=== PATIENT | male | born 1960 | race Caucasian/White ===

== ENCOUNTER 2016-08-18 05:52 | Inpatient (IN) | payer OTHER ==
[~2016-08-18] VITALS: Ht 167.6 cm; Wt 60.7 kg
[2016-08-18] VITALS (16 sets, daily range): BP systolic 88–104; BP diastolic 60–76; PULSE 58–104; RESP 24; TEMP 96.8–99; O2SAT 1–100
[2016-08-18] MEDS ORDERED: PROPOFOL 1000 MG/100 ML INJ 100 ML ONE ×2 (05:57→05:58)
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
[2016-08-18 06:14] LABS: I-STAT POTASSIUM 4.4 MMOL/L (3.5-4.9)
[2016-08-18 06:15] LABS: AUTOMATED NEUTROPHIL # 6.8 TH/MM3 (1.8-7.7); BASOPHIL # 0.2 TH/MM3 (0-0.2); BASOPHIL % 1.2 % (0.0-2.0); EOSINOPHIL # 0.2 TH/MM3 (0-0.4); HEMATOCRIT 43.8 % (39.0-51.0); LYMPH % 34.2 % (9.0-44.0); LYMPHOCYTE # 4.1 TH/MM3 (1.0-4.8); MEAN CORPUSCULAR HEMOGLOBIN 28.1 PG (27.0-34.0); MEAN CORPUSCULAR HGB CONC 32.7 % (32.0-36.0); MONO % 6.4 % (0.0-8.0); NEUT % 56.2 % (16.0-70.0); PLATELET COUNT 279 TH/MM3 (150-450); RED BLOOD COUNT 5.09 MIL/MM3 (4.50-5.90); RED CELL DISTRIBUTION WIDTH 13.9 % (11.6-17.2); WHITE BLOOD COUNT 12.1 TH/MM3 (4.0-11.0)
[2016-08-18 06:16] LABS: HEMO FLAGS AUTO DIFF
[2016-08-18 06:25] LABS: APTT (PATIENT) 26.7 SEC (24.3-30.1); INTERNATIONAL NORMALIZED RATIO 0.9 RATIO
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
[2016-08-18] MEDS ORDERED: IOHEXOL 350 MG/ML 10 ML VIAL (for RAD DIAG) IV ONE (06:31)
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
[2016-08-18 06:54] LABS: SCAN/DIFF AUTO DIFF CONFIRMED
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
[2016-08-18] MEDS ORDERED: ENALAPRILAT 1.25 MG/ML VIAL IV PRN (07:00)
[2016-08-18] MEDS ORDERED: ONDANSETRON HCL 4 MG/2 ML VIAL IV PRN (07:00)
[2016-08-18] MEDS ORDERED: MISCELLANEOUS NURSING INFORMATION XX SCH (07:00)
[2016-08-18] MEDS ORDERED: CHLORHEXIDINE GLUCONATE 2 % 1 PACK (2 CLOTHS) TOP PRN (07:00)
[2016-08-18] MEDS ORDERED: ETOMIDATE 20 MG/10 ML VIAL ONE (07:29)
[2016-08-18] MEDS ORDERED: SUCCINYLCHOLINE CHLORIDE 200 MG/10 ML VIAL ONE (07:29)
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
[2016-08-18 07:57] LABS: BLOOD GAS CARBOXYHEMOGLOBIN 1.4 % (0-4); BLOOD GAS HCO3 22 mmol/L (22-26); BLOOD GAS O2 HGB SATURATION 97 % (90-100); BLOOD GAS OXYGEN CONTENT 20.2 Vol % (12.0-20.0); BLOOD GAS PCO2 41 mmHg (38-42); BLOOD GAS PO2 497 mmHg (61-120); BLOOD GAS TOTAL HGB 13.9 G/DL (12.0-16.0); TEMP CORR TO 98.6
[2016-08-18 07:58] LABS: CRITICAL VALUE NO; DRAW SITE LT RADIAL; FIO2 100 %; NUMBER OF ARTERIAL PUNCTURES 2; OXYGEN DEVICE VENTILATOR; STAT YES; ULNAR PULSE PRESENT; VENT SETTINGS PRVC16/500/1.0/PEEP5
[2016-08-18] MEDS: CHLORHEXIDINE 0.12% (ORAL KIT) 15 ML CUP MT SCH ×2 (08:00→19:51)
[2016-08-18] MEDS ORDERED: NOREPINEPHRINE-DEXTROSE DRIP 250 ML IV ONE (08:06)
[2016-08-18] MEDS ORDERED: POTASSIUM PHOSPHATE MONOBASIC 500 MG TAB PO PRN (08:30)
[2016-08-18] MEDS ORDERED: MAGNESIUM OXIDE 400 MG TAB PO PRN (08:30)
[2016-08-18] MEDS ORDERED: POTASSIUM CHLORIDE 25 MEQ EFFERVESCENT TAB PO PRN (08:30)
[2016-08-18] MEDS ORDERED: MAGNESIUM SULFATE INJ 4 GM in SODIUM CHLORIDE 0.9% INJ 92 ML IV PRN (08:30)
[2016-08-18] MEDS ORDERED: POTASSIUM PHOSPHATE MONOBASIC 500 MG TAB PO/TUBE PRN (08:30)
[2016-08-18] MEDS ORDERED: MAGNESIUM SULFATE INJ 2 GM in SODIUM CHLORIDE 0.9% INJ 96 ML IV PRN (08:30)
[2016-08-18] MEDS ORDERED: SODIUM PHOSPHATE INJ 30 MMOL in SODIUM CHLOR 0.9% 250 ML INJ 240 ML IV PRN (08:30)
[2016-08-18] MEDS: SODIUM CHLOR 0.9% 1000 ML INJ 1,000 ML IV SCH ×3 (08:55→23:54)
--- NOTE | 2016-08-18 08:55 | PD.OP ---
Operative Report Date of Surgery: Aug 18, 2016 Preoperative Diagnosis: Severe traumatic brain injury with small epidural hemorrhage and small right subdural hemorrhage and cerebral contusions Postoperative Diagnosis: Same Procedure: Right frontal twist drill hole [place] intracranial pressure monitor placement Anesthesia: Local with sedation Surgeon: Hardik Bauer M.D. Hose Builder(s): None Operation and Findings: There is no family member currently available in the procedures undertaken taking the patient's best interest into account. Following administration of the intravenous propofol and fentanyl dripS with the oxygen saturation and hemodynamic monitoring in the intensive care unit, the right frontal region was shaved and the prep with chlor prep and sterilely draped. Using landmarks of 11 cm behind the nasion and 3 cm to the right of the midline, a 1 cm scalp incision was made after infiltrating with 1% lidocaine with epinephrine solution. With a handheld drill a twist drill hole was made in the underlying dura penetrated with a blunt probe. The Delaney bolt was then secured to the skull. The fiberoptic catheter zeroed and passed into the subarachnoid space with an opening pressure of 10 mmHg noted. A sterile dressing was applied. There were no complications and blood loss was less than 5 cc. Hardik Bauer MD Aug 18, 2016 08:55
[2016-08-18] MEDS: LACTULOSE SYRUP 20 GM/30 ML CUP PO SCH (09:00)
[2016-08-18] MEDS: DOCUSATE SODIUM 100 MG CAP PO SCH ×2 (09:00→20:38)
[2016-08-18] MEDS: BACITRACIN TOP OINT 15 GM TUBE TOP SCH ×2 (09:00→20:39)
[2016-08-18] MEDS ORDERED: TERBUTALINE INJ 1 MG/ML AMP SQ PRN (09:30)
--- NOTE | 2016-08-18 09:47 | RADRPT ---
EXAM DATE/TIME: 08/18/2016 08:39 [facility] COMPARISON: CHEST SINGLE AP, August 18, 2016, 5:47. INDICATIONS : Central line placement. MEDICAL HISTORY : None. SURGICAL HISTORY : None. ENCOUNTER: Initial ACUITY: 1 day PAIN SCORE: Non-responsive. LOCATION: Bilateral chest FINDINGS: Portable AP view of the chest demonstrates a normal-sized cardiac silhouette. ETT remains present and NG tube courses beyond the GE junction. Right subclavian central line has been placed and the distal tip is in the superior vena cava. No pneumothorax is visualized. Lungs are underinflated with atelec tasis at the bases. CONCLUSION: Right subclavian central line distal tip in the SVC. No pneumothorax is visualized. Abdullahi De MD on August 18, 2016 at 9:44 Board Certified Radiologist. This report was verified electronically.
[2016-08-18] MEDS: PIPERACIL-TAZO 3.375 GM PREMIX 50 ML IV SCH ×3 (10:06→19:51)
[2016-08-18] MEDS: levETIRAcetam INJ 500 MG in SODIUM CHLORIDE 0.9% INJ 100 ML IV SCH ×2 (10:06→20:38)
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
[2016-08-18] MEDS: PANTOPRAZOLE SODIUM 40 MG VIAL IVP SCH (11:47)
--- NOTE | 2016-08-18 11:57 | PD.PROCEDR ---
Central Line Procedure REASON FOR PROCEDURE Central venous access PROCEDURE PERFORMED Central line placement: R subclavian central line CONSENT Informed consent for procedure was obtained and time out performed. The risks and benefits of the procedure were discussed to include but limited to bleeding , clot formation, infection, and even . ANESTHESIA Local injection of 1% Lidocaine DESCRIPTION OF THE PROCEDURE The patient was placed in supine, mild Trendelenburg position. The area was exposed and cleansed with ChloraPrep, times two. Large sterile drape was used to cover the patient, with the site exposed, under sterile conditions including cap, face mask, sterile gown, and sterile gloves. On single attempt, the introducer needle was inserted with negative pressure in syringe and venous flash was obtained. The guide wire was then advanced without any restriction and the needle was removed. The dilator was used without any complications. Using Seldinger technique the 20 cm, triple lumen, abx coated catheter was advanced over the guide wire to a depth of 18 centimeters. The guide wire was removed. All ports were aspirated with dark venous blood return and flushed easily with sterile saline. All ports were capped. Antibiotic disc was placed around central line at puncture site. The central line was secured to the skin with two interrupted 2.0 silk sutures. The area was bandaged with sterile see- through central line bandage. COMPLICATIONS: No apparent complications ESTIMATED BLOOD LOSS: Less than 1 cc. Norman Fernando MD Aug 18, 2016 11:57
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
[2016-08-18] MEDS: NOREPINEPHRINE-DEXTROSE DRIP 250 ML IV SCH ×2 (12:57→19:12)
[2016-08-18] MEDS: fentaNYL DRIP 250 ML IV SCH (12:58)
[2016-08-18] MEDS: PROPOFOL 1000 MG/100 ML INJ 100 ML IV SCH ×3 (12:58→19:12)
[2016-08-18] MEDS ORDERED: SODIUM CHLOR 0.9% 1000 ML INJ 2,000 ML IV STA (16:16)
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
[2016-08-18] MEDS ORDERED: ALBUMIN HUMAN 5% 25 GM/500 ML BOTTLE IV ONE (17:45)
[2016-08-18 17:46] LABS: BLOOD GAS BASE EXCESS -3.7 mmol/L (-2-2); BLOOD GAS CARBOXYHEMOGLOBIN 0.8 % (0-4); BLOOD GAS HCO3 21 mmol/L (22-26); BLOOD GAS METHEMOGLOBIN 0.8 % (0-2); BLOOD GAS O2 HGB SATURATION 98 % (90-100); BLOOD GAS OXYGEN CONTENT 20.1 Vol % (12.0-20.0); BLOOD GAS PCO2 36 mmHg (38-42); BLOOD GAS PO2 173 mmHg (61-120); BLOOD GAS TOTAL HGB 14.5 G/DL (12.0-16.0); TEMP CORR TO 98.6
[2016-08-18 17:47] LABS: CRITICAL VALUE NO; DRAW SITE ART LINE; FIO2 50 %; NUMBER OF ARTERIAL PUNCTURES 0; OXYGEN DEVICE VENTILATOR; STAT NO; ULNAR PULSE PRESENT; VENT SETTINGS PRVC24/500/1.0/PEEP5
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
[2016-08-19] VITALS (21 sets, daily range): BP systolic 87–114; BP diastolic 47–72; PULSE 41–68; RESP 22–24; TEMP 95.2–98.3; O2SAT 99–100
[2016-08-19] MEDS: PIPERACIL-TAZO 3.375 GM PREMIX 50 ML IV SCH ×5 (01:07→21:23)
[2016-08-19] MEDS: CHLORHEXIDINE GLUCONATE 2 % 1 PACK (2 CLOTHS) TOP SCH (04:00)
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
[2016-08-19 05:09] LABS: BASOPHIL % 0.5 % (0.0-2.0); EOSINOPHIL # 0.2 TH/MM3 (0-0.4); EOSINOPHIL % 2.5 % (0.0-4.0); HEMATOCRIT 29.4 % (39.0-51.0); HEMO FLAGS DIFF FINAL; LYMPH % 14.5 % (9.0-44.0); LYMPHOCYTE # 1.4 TH/MM3 (1.0-4.8); MEAN CELL VOLUME 84.8 FL (80.0-100.0); MEAN CORPUSCULAR HEMOGLOBIN 28.7 PG (27.0-34.0); MEAN CORPUSCULAR HGB CONC 33.8 % (32.0-36.0); MONO % 8.8 % (0.0-8.0); NEUT % 73.7 % (16.0-70.0); PLATELET COUNT 192 TH/MM3 (150-450); RED BLOOD COUNT 3.47 MIL/MM3 (4.50-5.90); WHITE BLOOD COUNT 9.4 TH/MM3 (4.0-11.0)
[2016-08-19] MEDS: fentaNYL DRIP 250 ML IV SCH (05:29)
[2016-08-19] MEDS: NOREPINEPHRINE-DEXTROSE DRIP 250 ML IV SCH ×2 (05:29→17:12)
[2016-08-19] MEDS: PROPOFOL 1000 MG/100 ML INJ 100 ML IV SCH (05:29)
[2016-08-19 05:37] LABS: BICARBONATE 23.6 MEQ/L (21.0-32.0); POTASSIUM 3.3 MEQ/L (3.5-5.1)
[2016-08-19 05:46] LABS: BLOOD GAS BASE EXCESS -2.7 mmol/L (-2-2); BLOOD GAS HCO3 21 mmol/L (22-26); BLOOD GAS O2 HGB SATURATION 97 % (90-100); BLOOD GAS OXYGEN CONTENT 14.2 Vol % (12.0-20.0); BLOOD GAS PCO2 32 mmHg (38-42); BLOOD GAS PO2 167 mmHg (61-120); BLOOD GAS TOTAL HGB 10.1 G/DL (12.0-16.0); CRITICAL VALUE NO; OXYGEN DEVICE VENTILATOR; TEMP CORR TO 98.6
[2016-08-19 05:48] LABS: DRAW SITE ART LINE; FIO2 40 %; STAT NO; VENT SETTINGS PRVC-AC
[2016-08-19 05:57] LABS: CALCIUM-PROTEIN CORRECTED 8.3 MG/DL (8.5-10.1)
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
[2016-08-19] MEDS: PANTOPRAZOLE SODIUM 40 MG VIAL IVP SCH (07:00)
[2016-08-19] MEDS ORDERED: GENTAMICIN SULFATE 80 MG/2 ML VIAL ONE (07:06)
[2016-08-19] MEDS: CHLORHEXIDINE 0.12% (ORAL KIT) 15 ML CUP MT SCH ×2 (08:00→20:00)
[2016-08-19] MEDS: SODIUM CHLOR 0.9% 1000 ML INJ 1,000 ML IV SCH ×3 (08:44→23:30)
[2016-08-19] MEDS: BACITRACIN TOP OINT 15 GM TUBE TOP SCH ×2 (09:00→21:00)
[2016-08-19] MEDS: levETIRAcetam INJ 500 MG in SODIUM CHLORIDE 0.9% INJ 100 ML IV SCH ×2 (09:00→21:23)
[2016-08-19] MEDS: LACTULOSE SYRUP 20 GM/30 ML CUP PO SCH (09:00)
[2016-08-19] MEDS: DOCUSATE SODIUM 100 MG CAP PO SCH ×2 (09:00→21:24)
[2016-08-19] MEDS ORDERED: VANCOMYCIN HCL 1000 MG VIAL ONE (09:02)
[2016-08-19] MEDS ORDERED: SODIUM CHLOR 0.9% 250 ML INJ 250 ML ONE (09:02)
[2016-08-19] MEDS ORDERED: PROPOFOL 200 MG/20 ML AMP IV ONE (09:24)
[2016-08-19] MEDS ORDERED: ePHEDrine/NS 25 MG/5 ML SYR IV ONE ×2 (09:24→09:37)
[2016-08-19] MEDS ORDERED: ACETAMINOPHEN 1000 MG/100 ML VIAL IV ONE (09:32)
[2016-08-19] MEDS ORDERED: HYDROmorphone HCL PF 2 MG/ML VIAL ONE (09:32)
[2016-08-19] MEDS ORDERED: PHENYLEPH/NS 1000 MCG/10 ML SYR IV ONE (09:37)
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
--- NOTE | 2016-08-19 10:44 | PD.OP ---
cc: Krzysztof Pierre MD Operative Report Date of Surgery: Aug 19, 2016 Preoperative Diagnosis: Displaced left distal fibular and fibular shaft fractures, retained hardware left tibia and fibula Postoperative Diagnosis: Procedure: Left tibia reduction and intramedullary nail fixation, removal hardware left tibia Anesthesia: Gen. Surgeon: Krzysztof Pierre Licensed Occupational Therapy Assistant(s): Paulino Velázquez PA-C The surgical procedure was assisted by my physician assistant teacher. My P.A. presence was necessary throughout this case for the manipulation and positioning of the surgical extremity. My P.A. was assisting me throughout the duration of this procedure. The skill set of a physician assistant teacher was medically necessary to complete this procedure. During the surgical case the area intelligence technician was working at the back table and the physician assistant teacher was directly assisting me. Operation and Findings: Implants: synthes [10]mm x 345mm tibial nail Plan of activity: Nonweightbearing Patient was seen and examined preoperatively. He has multiple injuries including bilateral scapular fractures, pelvic fractures, and displaced left tibia-fibula fracture. An informed consent was obtained from patient and family after detailed discussion of risk and benefits. Risks of surgery include bleeding, infection, painful hardware, nonunion, malunion, leg length discrepancy, need for hardware removal, and medical complications associated with anesthesia including blood clots, stroke, heart attack, and were discussed. Operative site was marked. Patient was brought to the operating room placed on or table. Patient received IV antibiotics and was given IV sedation GETA. Operative leg was prepped with alcohol Hibiclens and draped in usual sterile fashion. Timeout procedure was performed Procedure began with reduction of fracture. 2 small incisions were made around the fracture site. A percutaneous clamp was placed. Traction was applied. Fracture was reduced. There was comminution of the fracture. The fracture reduced and excellent alignment was achieved. Fracture clamp was used to aid in reduction. Additional Steinmann pins were placed into the distal tibia segment to use as blocking screws. Next a 3 cm incision was made proximal to the patella. Quadriceps tendon was split in line with fibers. Cannulas were placed in the patellofemoral joint to protect the articular surface at all times. A guidepin was placed into the tibia and advanced in the tibial canal. Fluoroscopy was used to confirm appropriate guidepin placement. An opening reamer was used to open the tibial canal. A ball-tipped guidewire was advanced down the tibial canal. Guidepin was passed across the fracture site into the center of the distal tibia. Fluoroscopy confirmed guidepin placement. The nail length was now measured. The fracture was now held in a reduced position and the canal was reamed. The canal was reamed up to appropriate size. A Synthes nail was now selected. Next the nail was fully seated. Using perfect tejon technique 4 distal interlocking screws were placed. 2 additional screws were placed outside the nail for additional stability. Using the insertion handle as a guide 2 proximal interlocking screws were placed. Fluoroscopy confirmed excellent of fracture with well-placed hardware. Incisions and the knee joint were thoroughly irrigated with sterile saline. Fascia was closed with #1 Vicryl, subcutaneous tissues closed with 3-0 Vicryl and skin was closed with aakash. Sterile dressings were applied. Patient was awakened and transferred to [facility] in critical condition. Krzysztof Pierre MD Aug 19, 2016 10:44
[2016-08-19] MEDS ORDERED: Post-op Orders (for Pharmacy) MISC XX ONE (10:45)
[2016-08-19] MEDS ORDERED: SODIUM CHLORIDE 0.9% FLUSH 5 ML FLUSH IVF PRN (10:45)
[2016-08-19] MEDS ORDERED: ceFAZolin 2 GM PREMIX 50 ML IV SCH (10:45)
[2016-08-19] MEDS ORDERED: LACTATED RINGER'S 1000 ML INJ 1,000 ML IV SCH (11:00)
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
[2016-08-19] MEDS ORDERED: fentaNYL CITRATE 250 MCG/5 ML AMP ONE ×2 (11:24)
[2016-08-19] MEDS ORDERED: DOPamine INJ PREMIX 500 ML ONE (11:37)
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
--- NOTE | 2016-08-19 12:34 | RADRPT ---
EXAM DATE/TIME: 08/19/2016 10:24 [facility] COMPARISON: No previous studies available for comparison. INDICATIONS : Open reduction internal fixation of left distal tibia. MEDICAL HISTORY : None. SURGICAL HISTORY : None. ENCOUNTER: Initial ACUITY: 1 day PAIN SCORE: Non-responsive. LOCATION: Left Tib/Fib FINDINGS: Multiple coned down views of the left tibia and fibula were obtained intraoperatively using a matrix camera and demonstrate placement of an intramedullary dennis femur with multiple locking screws transfix ing the distal femur fracture. The fracture fragments are in near-anatomic alignment. There is a scre w-plate fixation device along the distal fibula just below a transverse fracture. The distal fibular fragment displaced one shaft width anteriorly from the proximal fibular fragment. CONCLUSION: Status post open ridgid internal fixation. Darren Watkins MD on August 19, 2016 at 12:29 Board Certified Radiologist. This report was verified electronically.
[2016-08-19] MEDS ORDERED: LIDOCAINE 1%/EPINEPHrine 1:100,000 SOLN 50 ML VIAL ONE (14:10)
[2016-08-19] MEDS ORDERED: BALANCED SALT SOLN OPHT IRRIG 15 ML BTL ONE (14:37)
[2016-08-19] MEDS ORDERED: LIDOCAINE 2%/EPINEPHrine 1:100,000 30ML MDV ONE (14:38)
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
[2016-08-19] MEDS: SODIUM CHLORIDE 0.9% FLUSH 5 ML FLUSH IVF SCH (21:00)
[2016-08-19] MEDS: MISCELLANEOUS NURSING INFORMATION SCH (21:00)
[2016-08-19] MEDS: VANCOMYCIN INJ 1,000 MG in SODIUM CHLOR 0.9% 250 ML INJ 250 ML IV SCH (21:22)
[2016-08-19] MEDS: SODIUM CHLORIDE 0.9% FLUSH 10 ML FLUSH IV FLUSH PRN (21:23)
[2016-08-19] MEDS: MAGNESIUM HYDROXIDE SUSP 30 ML CUP PO SCH (21:26)
[2016-08-19] MEDS ORDERED: NOREPINEPHRINE 4 MG/4 ML AMP ONE (22:45)
[2016-08-20] VITALS (17 sets, daily range): BP systolic 122–154; BP diastolic 51–65; PULSE 58–79; RESP 22; TEMP 96.6–98.2; O2SAT 100
[2016-08-20] MEDS: fentaNYL DRIP 250 ML IV SCH ×2 (00:56→14:50)
[2016-08-20] MEDS: PROPOFOL 1000 MG/100 ML INJ 100 ML IV SCH ×3 (01:37→23:03)
[2016-08-20] MEDS: PIPERACIL-TAZO 3.375 GM PREMIX 50 ML IV SCH ×4 (01:37→20:23)
[2016-08-20] MEDS: CHLORHEXIDINE GLUCONATE 2 % 1 PACK (2 CLOTHS) TOP SCH (04:00)
[2016-08-20 05:24] LABS: BLOOD GAS BASE EXCESS -0.8 mmol/L (-2-2); BLOOD GAS CARBOXYHEMOGLOBIN 1.1 % (0-4); BLOOD GAS HCO3 23 mmol/L (22-26); BLOOD GAS METHEMOGLOBIN 0.9 % (0-2); BLOOD GAS O2 HGB SATURATION 97 % (90-100); BLOOD GAS OXYGEN CONTENT 13.7 Vol % (12.0-20.0); BLOOD GAS PCO2 38 mmHg (38-42); BLOOD GAS PO2 136 mmHg (61-120); BLOOD GAS TOTAL HGB 9.8 G/DL (12.0-16.0); TEMP CORR TO 98.6
[2016-08-20 05:25] LABS: CRITICAL VALUE NO; DRAW SITE ART LINE; FIO2 35 %; OXYGEN DEVICE VENTILATOR; STAT NO; VENT SETTINGS PRVC/AC
[2016-08-20 06:07] LABS: AUTOMATED NEUTROPHIL # 9.4 TH/MM3 (1.8-7.7); BASOPHIL # 0.1 TH/MM3 (0-0.2); BASOPHIL % 0.9 % (0.0-2.0); EOSINOPHIL # 0.6 TH/MM3 (0-0.4); EOSINOPHIL % 5.1 % (0.0-4.0); HEMATOCRIT 29.2 % (39.0-51.0); HEMO FLAGS DIFF FINAL; LYMPH % 11.7 % (9.0-44.0); LYMPHOCYTE # 1.5 TH/MM3 (1.0-4.8); MEAN CELL VOLUME 85.5 FL (80.0-100.0); MEAN CORPUSCULAR HEMOGLOBIN 28.2 PG (27.0-34.0); MONO % 7.2 % (0.0-8.0); NEUT % 75.1 % (16.0-70.0); PLATELET COUNT 178 TH/MM3 (150-450); RED BLOOD COUNT 3.41 MIL/MM3 (4.50-5.90); WHITE BLOOD COUNT 12.5 TH/MM3 (4.0-11.0)
[2016-08-20 06:31] LABS: ALKALINE PHOSPHATASE 75 U/L (45-117); ALT (GPT) 39 U/L (12-78); ANION GAP 8 MEQ/L (5-15); AST (GOT) 55 U/L (15-37); BICARBONATE 24.8 MEQ/L (21.0-32.0); BLOOD UREA NITROGEN 2 MG/DL (7-18); CHLORIDE 113 MEQ/L (98-107); GLOMERULAR FILTRATION RATE 123 ML/MIN (>89); POTASSIUM 3.3 MEQ/L (3.5-5.1); SODIUM (NA) 146 MEQ/L (136-145); TOTAL BILIRUBIN ADULT 1.3 MG/DL (0.2-1.0)
--- NOTE | 2016-08-20 06:58 | RADRPT ---
EXAM DATE/TIME: 08/20/2016 05:36 [facility] COMPARISON: CHEST SINGLE AP, August 19, 2016, 3:38. INDICATIONS : Shortness of breath. MEDICAL HISTORY : None. SURGICAL HISTORY : None. ENCOUNTER: Subsequent ACUITY: 3 days PAIN SCORE: Non-responsive. LOCATION: Bilateral chest FINDINGS: No infiltrate, effusion or pneumothorax demonstrated. Cardiomediastinal contours remain within normal limits. Endotracheal tube tip is about 4 cm above the dylon, unchanged. Nasogastric tube courses into the st [facility]. Right subclavian central venous catheter with tip in the superior vena cava again noted. CONCLUSION: No change. Lungs remain clear. Abdullahi Mehta MD on August 20, 2016 at 6:56 Board Certified Radiologist. This report was verified electronically.
[2016-08-20] MEDS: SODIUM CHLOR 0.9% 1000 ML INJ 1,000 ML IV SCH (07:03)
[2016-08-20] MEDS: POTASSIUM CHLOR 40 MEQ PREMIX 100 ML IV PRN (07:03)
[2016-08-20] MEDS: PANTOPRAZOLE SODIUM 40 MG VIAL IVP SCH (07:06)
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
[2016-08-20] MEDS: CHLORHEXIDINE 0.12% (ORAL KIT) 15 ML CUP MT SCH ×2 (08:00→20:00)
[2016-08-20] MEDS: BACITRACIN TOP OINT 15 GM TUBE TOP SCH ×2 (08:00→20:56)
[2016-08-20] MEDS: MISCELLANEOUS NURSING INFORMATION SCH ×2 (09:00→21:00)
[2016-08-20] MEDS: SODIUM CHLORIDE 0.9% FLUSH 5 ML FLUSH IVF SCH ×2 (09:00→20:56)
[2016-08-20] MEDS: levETIRAcetam INJ 500 MG in SODIUM CHLORIDE 0.9% INJ 100 ML IV SCH ×2 (09:55→20:56)
[2016-08-20] MEDS: LACTULOSE SYRUP 20 GM/30 ML CUP PO SCH (09:55)
[2016-08-20] MEDS: DOCUSATE SODIUM 100 MG CAP PO SCH ×2 (09:55→20:56)
[2016-08-20] MEDS: VANCOMYCIN INJ 1,000 MG in SODIUM CHLOR 0.9% 250 ML INJ 250 ML IV SCH ×2 (09:56→20:58)
[2016-08-20] MEDS ORDERED: ENOXAPARIN SODIUM 40 MG/0.4 ML SYRINGE SQ SCH (10:00)
[2016-08-20] MEDS ORDERED: 3% SALINE INJ 500 ML IV SCH (11:00)
[2016-08-20] MEDS: NOREPINEPHRINE INJ 4 MG in SODIUM CHLOR 0.9% 250 ML INJ 246 ML IV SCH ×3 (11:07→20:56)
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
[2016-08-20] MEDS: DOPamine 800 MG/D5W PREMIX 500 ML IV SCH (14:50)
[2016-08-20] MEDS: MAGNESIUM HYDROXIDE SUSP 30 ML CUP PO SCH (20:56)
[2016-08-21] VITALS (18 sets, daily range): BP systolic 146–162; BP diastolic 56–63; PULSE 64–80; RESP 22–24; TEMP 98.1–99; O2SAT 33–100
[2016-08-21] MEDS: PIPERACIL-TAZO 3.375 GM PREMIX 50 ML IV SCH ×4 (01:01→19:51)
[2016-08-21] MEDS: NOREPINEPHRINE INJ 4 MG in SODIUM CHLOR 0.9% 250 ML INJ 246 ML IV SCH ×5 (02:07→23:59)
[2016-08-21] MEDS: PROPOFOL 1000 MG/100 ML INJ 100 ML IV SCH ×4 (03:56→22:16)
[2016-08-21] MEDS: CHLORHEXIDINE GLUCONATE 2 % 1 PACK (2 CLOTHS) TOP SCH (03:56)
[2016-08-21 05:51] LABS: BASOPHIL # 0.1 TH/MM3 (0-0.2); BASOPHIL % 0.6 % (0.0-2.0); EOSINOPHIL # 0.7 TH/MM3 (0-0.4); EOSINOPHIL % 5.8 % (0.0-4.0); HEMATOCRIT 28.4 % (39.0-51.0); HEMO FLAGS DIFF FINAL; LYMPH % 9.6 % (9.0-44.0); LYMPHOCYTE # 1.1 TH/MM3 (1.0-4.8); MEAN CELL VOLUME 85.8 FL (80.0-100.0); MEAN CORPUSCULAR HEMOGLOBIN 27.9 PG (27.0-34.0); MEAN CORPUSCULAR HGB CONC 32.5 % (32.0-36.0); MONO % 6.8 % (0.0-8.0); NEUT % 77.2 % (16.0-70.0); PLATELET COUNT 189 TH/MM3 (150-450); RED BLOOD COUNT 3.31 MIL/MM3 (4.50-5.90); RED CELL DISTRIBUTION WIDTH 14.4 % (11.6-17.2); WHITE BLOOD COUNT 11.7 TH/MM3 (4.0-11.0)
[2016-08-21 06:07] LABS: MAGNESIUM 2.5 MG/DL (1.5-2.5)
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
[2016-08-21] MEDS: PANTOPRAZOLE SODIUM 40 MG VIAL IVP SCH (06:56)
[2016-08-21] MEDS: fentaNYL DRIP 250 ML IV SCH (06:57)
[2016-08-21] MEDS ORDERED: BISACODYL 10 MG SUPP RECTAL ONE (07:15)
[2016-08-21] MEDS: levETIRAcetam INJ 500 MG in SODIUM CHLORIDE 0.9% INJ 100 ML IV SCH ×2 (08:13→20:21)
[2016-08-21] MEDS: LACTULOSE SYRUP 20 GM/30 ML CUP PO SCH (08:13)
[2016-08-21] MEDS: CHLORHEXIDINE 0.12% (ORAL KIT) 15 ML CUP MT SCH ×2 (08:13→19:51)
[2016-08-21] MEDS: SODIUM CHLORIDE 0.9% FLUSH 5 ML FLUSH IVF SCH ×2 (08:14→20:21)
[2016-08-21] MEDS: DOCUSATE SODIUM 100 MG CAP PO SCH ×2 (08:14→20:21)
[2016-08-21] MEDS: BACITRACIN TOP OINT 15 GM TUBE TOP SCH ×2 (08:14→20:22)
[2016-08-21] MEDS: MISCELLANEOUS NURSING INFORMATION SCH ×2 (09:00→20:21)
[2016-08-21] MEDS ORDERED: ALBUMIN HUMAN 5% 25 GM/500 ML BOTTLE IV ONE (11:00)
[2016-08-21 13:03] LABS: ALT (GPT) 28 U/L (12-78); ANION GAP 7 MEQ/L (5-15); AST (GOT) 31 U/L (15-37); BICARBONATE 24.7 MEQ/L (21.0-32.0); BLOOD UREA NITROGEN 2 MG/DL (7-18); CHLORIDE 119 MEQ/L (98-107); GLOMERULAR FILTRATION RATE 99 ML/MIN (>89); POTASSIUM 3.3 MEQ/L (3.5-5.1); SODIUM (NA) 151 MEQ/L (136-145)
[2016-08-21 13:05] LABS: ALKALINE PHOSPHATASE 81 U/L (45-117); TOTAL BILIRUBIN ADULT 0.7 MG/DL (0.2-1.0)
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
[2016-08-21] MEDS: POTASSIUM CHLOR 40 MEQ PREMIX 100 ML IV PRN (13:29)
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
[2016-08-21 15:06] LABS: BLOOD GAS BASE EXCESS -1.9 mmol/L (-2-2); BLOOD GAS CARBOXYHEMOGLOBIN 1.1 % (0-4); BLOOD GAS HCO3 23 mmol/L (22-26); BLOOD GAS METHEMOGLOBIN 0.8 % (0-2); BLOOD GAS O2 HGB SATURATION 97 % (90-100); BLOOD GAS OXYGEN CONTENT 12.2 Vol % (12.0-20.0); BLOOD GAS PCO2 43 mmHg (38-42); BLOOD GAS PO2 128 mmHg (61-120); BLOOD GAS TOTAL HGB 8.8 G/DL (12.0-16.0); CRITICAL VALUE NO; OXYGEN DEVICE VENTILATOR; TEMP CORR TO 98.6
[2016-08-21 15:07] LABS: DRAW SITE ART LINE; FIO2 35 %; STAT NO
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
[2016-08-21] MEDS: DOPamine 800 MG/D5W PREMIX 500 ML IV SCH (18:36)
[2016-08-21] MEDS: MAGNESIUM HYDROXIDE SUSP 30 ML CUP PO SCH (20:22)
[2016-08-22] VITALS (20 sets, daily range): BP systolic 117–139; BP diastolic 53–61; PULSE 62–80; RESP 22–24; TEMP 97.2–98.6; O2SAT 98–100
[2016-08-22] MEDS: PIPERACIL-TAZO 3.375 GM PREMIX 50 ML IV SCH ×4 (01:27→19:24)
[2016-08-22] MEDS: fentaNYL DRIP 250 ML IV SCH ×2 (03:21→17:23)
[2016-08-22] MEDS: CHLORHEXIDINE GLUCONATE 2 % 1 PACK (2 CLOTHS) TOP SCH (04:00)
[2016-08-22 04:08] LABS: AUTOMATED NEUTROPHIL # 6.4 TH/MM3 (1.8-7.7); BASOPHIL % 0.5 % (0.0-2.0); EOSINOPHIL # 0.6 TH/MM3 (0-0.4); EOSINOPHIL % 6.9 % (0.0-4.0); HEMATOCRIT 26.4 % (39.0-51.0); HEMO FLAGS DIFF FINAL; LYMPH % 13.1 % (9.0-44.0); LYMPHOCYTE # 1.2 TH/MM3 (1.0-4.8); MEAN CORPUSCULAR HEMOGLOBIN 28.3 PG (27.0-34.0); MEAN CORPUSCULAR HGB CONC 33.3 % (32.0-36.0); MONO % 8.5 % (0.0-8.0); PLATELET COUNT 232 TH/MM3 (150-450); RED BLOOD COUNT 3.11 MIL/MM3 (4.50-5.90); RED CELL DISTRIBUTION WIDTH 14.5 % (11.6-17.2)
--- NOTE | 2016-08-22 04:16 | RADRPT ---
EXAM DATE/TIME: 08/22/2016 02:35 [facility] COMPARISON: CHEST SINGLE AP, August 21, 2016, 5:20. INDICATIONS : Shortness of breath, possible pulmonary disease. MEDICAL HISTORY : None. SURGICAL HISTORY : Craniotomy. ENCOUNTER: Subsequent ACUITY: 4 - 6 days PAIN SCORE: Non-responsive. LOCATION: Bilateral chest FINDINGS: The cardiac silhouette is normal in transverse diameter. The lungs are hypoinflated. The lungs are fr ee of acute parenchymal opacity. No effusions are identified. Support lines and tubes are in satisfac tory position. CONCLUSION: 1. No acute cardiopulmonary disease. Hypoinflation Karsten Holland MD on August 22, 2016 at 4:14 Board Certified Radiologist. This report was verified electronically.
[2016-08-22] MEDS: PROPOFOL 1000 MG/100 ML INJ 100 ML IV SCH ×5 (04:19→22:37)
[2016-08-22 04:26] LABS: ALT (GPT) 27 U/L (12-78); ANION GAP 7 MEQ/L (5-15); AST (GOT) 30 U/L (15-37); BICARBONATE 25.1 MEQ/L (21.0-32.0); BLOOD UREA NITROGEN 3 MG/DL (7-18); CHLORIDE 120 MEQ/L (98-107); GLOMERULAR FILTRATION RATE 106 ML/MIN (>89); MAGNESIUM 2.6 MG/DL (1.5-2.5); POTASSIUM 3.1 MEQ/L (3.5-5.1); SODIUM (NA) 152 MEQ/L (136-145)
[2016-08-22 04:39] LABS: ALKALINE PHOSPHATASE 74 U/L (45-117); TOTAL BILIRUBIN ADULT 0.8 MG/DL (0.2-1.0)
[2016-08-22] MEDS: POTASSIUM CHLOR 40 MEQ PREMIX 100 ML IV PRN (04:43)
[2016-08-22 05:35] LABS: BLOOD GAS BASE EXCESS -1.2 mmol/L (-2-2); BLOOD GAS CARBOXYHEMOGLOBIN 1.3 % (0-4); BLOOD GAS HCO3 23 mmol/L (22-26); BLOOD GAS METHEMOGLOBIN 0.8 % (0-2); BLOOD GAS O2 HGB SATURATION 97 % (90-100); BLOOD GAS OXYGEN CONTENT 12.5 Vol % (12.0-20.0); BLOOD GAS PO2 125 mmHg (61-120); CRITICAL VALUE NO; OXYGEN DEVICE VENTILATOR; TEMP CORR TO 98.6
[2016-08-22 05:36] LABS: DRAW SITE ART LINE; FIO2 35 %; STAT NO; VENT SETTINGS PRVC/AC
[2016-08-22 05:37] LABS: BLOOD GAS PCO2 36 mmHg (38-42)
[2016-08-22] MEDS: NOREPINEPHRINE INJ 4 MG in SODIUM CHLOR 0.9% 250 ML INJ 246 ML IV SCH ×4 (06:17→22:08)
[2016-08-22] MEDS: PANTOPRAZOLE SODIUM 40 MG VIAL IVP SCH (06:33)
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
[2016-08-22] MEDS: CHLORHEXIDINE 0.12% (ORAL KIT) 15 ML CUP MT SCH ×2 (08:04→19:26)
[2016-08-22] MEDS: MISCELLANEOUS NURSING INFORMATION SCH ×2 (08:04→19:26)
[2016-08-22] MEDS: SODIUM CHLORIDE 0.9% FLUSH 5 ML FLUSH IVF SCH ×2 (08:05→19:32)
[2016-08-22] MEDS: BACITRACIN TOP OINT 15 GM TUBE TOP SCH ×2 (08:05→19:33)
[2016-08-22] MEDS: levETIRAcetam INJ 500 MG in SODIUM CHLORIDE 0.9% INJ 100 ML IV SCH ×2 (09:16→19:32)
[2016-08-22] MEDS: LACTULOSE SYRUP 20 GM/30 ML CUP PO SCH (09:16)
[2016-08-22] MEDS: DOCUSATE SODIUM 100 MG CAP PO SCH ×2 (09:16→19:33)
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
--- NOTE | 2016-08-22 12:49 | HHI.PR ---
Neuropsych Progress Notes/Response to Tx Contents of Sessions: Level of Consciousness Time with Patient: 15 minutes Premorbid psychological status Premorbid Cognitive, Emotional and Behavioral Status: Unable to Assess. The patient has no family present to discuss his baseline status. Behavioral Reactions of Patient and Family/Support System: Unable to Assess. No family present. Emotional/Behavioral Status of Patient and Family/Support System: Unable to Assess. Pertinent issues, if appropriate to this patients clinical care, are described in detail above. Maximizing acute care outcome It is recommended that the patient be monitored for emergent behavioral impulsivity as the medical condition evolves. This patients neuropathological challenges may limit their rehabilitation potential going forward, and these challenges will require specialized therapeutic skills to maximize outcome. Anticipated Problems Ongoing areas of concern will include behavioral impulsivity, lack of insight and judgment, which is expected to improve with time and treatment. Treatment Plan This clinician will continue to follow with you throughout the course of this patients rehabilitation treatment, and I will be available to meet with the patients family/support system to facilitate their understanding and the ongoing care of their family member. The goals of neuropsychological intervention shall be both educational and supportive to the family/support system as is deemed clinically appropriate. [facility] Level: I:No response-total assistance Impression This patient has suffered a very severe traumatic brain injury with expected severe residual neurocognitive impairments. Diagnosis: (1) Major neurocognitive disorder as late effect of traumatic brain injury with behavioral disturbance Status: Acute Progress Note Narrative Ongoing follow-up of patient seen during daily trauma rounds. This is day 4 post injury. There have been no changes in his neurological status, and he remains intubated and sedated. His ICPs rise on sedation vacations. He reportedly moves his left and withdraws on the right. He is at [facility] presently. I will continue to follow. Hector Garrett PhD August 22, 2016 12:49 pm
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
[2016-08-22] MEDS ORDERED: ROCURONIUM INJ 50 MG/5 ML VIAL IV PUSH ONE (18:00)
[2016-08-22] MEDS: MAGNESIUM HYDROXIDE SUSP 30 ML CUP PO SCH (19:33)
[2016-08-23] VITALS (20 sets, daily range): BP systolic 113–173; BP diastolic 51–90; PULSE 68–80; RESP 22; TEMP 98.6–99.9; O2SAT 97–100
[2016-08-23] MEDS: PIPERACIL-TAZO 3.375 GM PREMIX 50 ML IV SCH ×4 (00:54→19:26)
[2016-08-23] MEDS: PROPOFOL 1000 MG/100 ML INJ 100 ML IV SCH ×4 (01:35→18:18)
[2016-08-23 03:19] LABS: AUTOMATED NEUTROPHIL # 6.4 TH/MM3 (1.8-7.7); BASOPHIL % 0.5 % (0.0-2.0); EOSINOPHIL # 0.8 TH/MM3 (0-0.4); EOSINOPHIL % 7.6 % (0.0-4.0); HEMATOCRIT 27.2 % (39.0-51.0); HEMO FLAGS DIFF FINAL; LYMPH % 15.5 % (9.0-44.0); LYMPHOCYTE # 1.5 TH/MM3 (1.0-4.8); MEAN CELL VOLUME 84.7 FL (80.0-100.0); MEAN CORPUSCULAR HEMOGLOBIN 28.3 PG (27.0-34.0); MEAN CORPUSCULAR HGB CONC 33.4 % (32.0-36.0); MONO % 11.1 % (0.0-8.0); NEUT % 65.3 % (16.0-70.0); PLATELET COUNT 297 TH/MM3 (150-450); RED BLOOD COUNT 3.21 MIL/MM3 (4.50-5.90); RED CELL DISTRIBUTION WIDTH 14.5 % (11.6-17.2); WHITE BLOOD COUNT 9.9 TH/MM3 (4.0-11.0)
[2016-08-23] MEDS: CHLORHEXIDINE GLUCONATE 2 % 1 PACK (2 CLOTHS) TOP SCH (03:36)
[2016-08-23 03:42] LABS: ALT (GPT) 26 U/L (12-78); ANION GAP 5 MEQ/L (5-15); AST (GOT) 30 U/L (15-37); BLOOD UREA NITROGEN 6 MG/DL (7-18); CHLORIDE 118 MEQ/L (98-107); GLOMERULAR FILTRATION RATE 99 ML/MIN (>89); MAGNESIUM 2.6 MG/DL (1.5-2.5); POTASSIUM 3.7 MEQ/L (3.5-5.1); SODIUM (NA) 150 MEQ/L (136-145)
[2016-08-23 04:17] LABS: ALKALINE PHOSPHATASE 93 U/L (45-117)
--- NOTE | 2016-08-23 05:26 | RADRPT ---
EXAM DATE/TIME: 08/23/2016 04:28 [facility] COMPARISON: CT BRAIN W/O CONTRAST, August 19, 2016, 6:08. INDICATIONS : Follow-up trauma. Evaluate bleed. RADIATION DOSE: 66.63 CTDIvol (mGy) MEDICAL HISTORY : Non-responsive. SURGICAL HISTORY : Non-responsive. ENCOUNTER: Subsequent ACUITY: 4 - 6 days PAIN SCALE: Non-responsive LOCATION: cranial TECHNIQUE: Multiple contiguous axial images were obtained of the head. Using automated exposure control and adj ustment of the mA and/or kV according to patient size, radiation dose was kept as low as reasonably a chievable to obtain optimal diagnostic quality images. FINDINGS: There is a stable epidural hematoma in the left temporal lobe measuring 8 mm in thickness. Subarachno id hemorrhage is present in the right parietal region. Bifrontal atrophy is present. There is contusi on involving the brainstem at the level of the base of this report 3 doubles in the midline as well a s in the left cerebral peduncle. Posterior fossa structures are unremarkable. Note is made of extensi ve sinus disease. CONCLUSION: 1. Stable intracranial hemorrhages. No evidence of hydrocephalus. 2. No acute hemorrhage is identified Karsten Holland MD on August 23, 2016 at 5:21 Board Certified Radiologist. This report was verified electronically.
--- NOTE | 2016-08-23 05:35 | RADRPT ---
EXAM DATE/TIME: 08/23/2016 05:09 [facility] COMPARISON: CHEST SINGLE AP, August 22, 2016, 2:35. INDICATIONS : Shortness of breath, possible pulmonary disease. MEDICAL HISTORY : None. SURGICAL HISTORY : Craniotomy. ENCOUNTER: Subsequent ACUITY: 4 - 6 days PAIN SCORE: Non-responsive. LOCATION: Bilateral chest FINDINGS: The cardiac silhouette is normal in transverse diameter. Support lines and tubes are in satisfactory position. The lungs are free of acute parenchymal opacity. No effusions are identified. The lungs are hypoinflated. There is prominence of the central pulmonary vasculature with indistinct vascular filippo ins compatible with vascular congestion but no evidence of overt failure. CONCLUSION: 1. Cardiomegaly and findings of vascular congestion without overt failure. There has been no signific ant change when compared to the prior exam. Karsten Holland MD on August 23, 2016 at 5:32 Board Certified Radiologist. This report was verified electronically.
[2016-08-23] MEDS: PANTOPRAZOLE SODIUM 40 MG VIAL IVP SCH (06:16)
[2016-08-23] MEDS: DOPamine 800 MG/D5W PREMIX 500 ML IV SCH (06:24)
[2016-08-23 06:33] LABS: BLOOD GAS BASE EXCESS 0.2 mmol/L (-2-2); BLOOD GAS CARBOXYHEMOGLOBIN 1.2 % (0-4); BLOOD GAS HCO3 24 mmol/L (22-26); BLOOD GAS METHEMOGLOBIN 0.7 % (0-2); BLOOD GAS O2 HGB SATURATION 96 % (90-100); BLOOD GAS OXYGEN CONTENT 12.9 Vol % (12.0-20.0); BLOOD GAS PCO2 33 mmHg (38-42); BLOOD GAS PO2 96 mmHg (61-120); BLOOD GAS TOTAL HGB 9.4 G/DL (12.0-16.0); TEMP CORR TO 98.6
[2016-08-23 06:34] LABS: CRITICAL VALUE NO; OXYGEN DEVICE VENTILATOR
[2016-08-23 06:35] LABS: FIO2 35 %; VENT SETTINGS PRVC / AC
[2016-08-23 06:36] LABS: DRAW SITE ART LINE; STAT YES
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
--- NOTE | 2016-08-23 06:54 | PD.ORT.PN ---
Subjective Subjective Remarks Intubated and stable Objective Vitals Vital Signs Date Time Temp Pulse Resp B/P Pulse Ox O2 Delivery O2 Flow Rate FiO2 08/23/16 06:00 73 08/23/16 04:35 100 100 08/23/16 04:15 100 100 08/23/16 04:00 35 08/23/16 04:00 99.0 78 22 129/56 100 08/23/16 04:00 78 08/23/16 03:35 98 35 08/23/16 02:00 77 08/23/16 00:19 99 35 08/23/16 00:00 99.5 80 22 140/63 100 08/23/16 00:00 80 08/23/16 00:00 35 08/22/16 22:18 35 08/22/16 22:18 100 35 08/22/16 22:00 80 08/22/16 20:00 35 08/22/16 20:00 79 08/22/16 20:00 98.6 78 22 128/56 100 08/22/16 19:00 100 Mechanical Ventilator 35 08/22/16 18:07 98 35 08/22/16 18:00 78 08/22/16 16:13 100 35 08/22/16 16:08 100 35 08/22/16 16:00 71 08/22/16 16:00 35 08/22/16 16:00 97.7 71 22 131/60 100 08/22/16 14:00 73 08/22/16 12:00 98.1 73 22 120/53 100 08/22/16 12:00 73 08/22/16 12:00 35 08/22/16 10:59 100 35 08/22/16 10:00 62 08/22/16 08:00 98.6 62 22 139/61 100 Automatic Cuff 08/22/16 08:00 35 08/22/16 08:00 62 08/22/16 07:44 100 35 08/22/16 07:44 100 35 08/22/16 07:00 100 Mechanical Ventilator 35 I/O 08/22/16 08/22/16 08/22/16 08/23/16 08/23/16 08/23/16 07:00 15:00 23:00 07:00 15:00 23:00 Intake Total 1453 ml 1141 ml 1037 ml 1220 ml Output Total 950 ml 1550 ml 1150 ml 1450 ml Balance 503 ml -409 ml -113 ml -230 ml Intake IV Total 996 ml 943 ml 833 ml 1160 ml Tube Feeding 457 ml 138 ml 144 ml 0 ml Tube Irrigant 60 ml 60 ml 60 ml Output Urine Total 950 ml 1550 ml 1150 ml 1450 ml # Bowel Movements 0 0 0 0 Result Diagram: 08/23/16 0305 08/23/16 0305 Imaging Last 24 hours Impressions Pelvis X-Ray 08/18/16 0612 Signed Impressions: Service Date/Time: July 05:47 - CONCLUSION: The bony structures are grossly intact. A CT scan will be performed for further evaluation. Corky Meng MD Maxillofacial CT 08/18/16 0602 Signed Impressions: Service Date/Time: July 06:11 - CONCLUSION: 1. Multiple bilateral facial fractures as described above. 2. Bilateral zygomatic arch fractures. 3. Bilateral skull fractures. Corky Meng MD Head CT 08/18/16 0554 Signed Impressions: Service Date/Time: July 06:11 - CONCLUSION: 1. There is an 8mm left epidural hematoma along the left mid parietal area. 2. Multiple hemorrhagic contusions are seen in the right temporal lobe along with a small right-sided subdural hematoma. 3. Bilateral skull fractures are demonstrated. 4. Fractures of the facial bones of the right side are demonstrated. Corky Meng MD Chest X-Ray 08/18/16 0554 Signed Impressions: Service Date/Time: July 05:47 - CONCLUSION: No acute pulmonary infiltrates. A CT thorax will be performed for further evaluation. Corky Meng MD Chest CT 08/18/16 0554 Signed Impressions: Service Date/Time: July 06:20 - CONCLUSION: 1. No acute intrathoracic disease. 2. Multiple comminuted fractures involving both scapula Corky Meng MD Cervical Spine CT 08/18/16 0554 Signed Impressions: Service Date/Time: July 06:11 - CONCLUSION: 1. No acute bony fracture. 2. Primary degenerative changes involving the cervical spine. Corky Meng MD Abdomen/Pelvis CT 08/18/16 0554 Signed Impressions: Service Date/Time: July 06:20 - CONCLUSION: 1. Small focal area of decreased density in the left lobe liver suggestive of a focal contusion. 2. Focal hematoma of the right adrenal gland measuring 3.2 x 1.2 cm. 3. Focal infarction involving the upper pole the right kidney. 4. Nondisplaced fracture involving the right transverse process of L4. 5. Fractures involving the left ischium and left inferior pubic ramus. Corky Meng MD Ankle X-Ray 08/18/16 0000 Signed Impressions: Service Date/Time: July 05:47 - CONCLUSION: Comminuted displaced fractures of the distal tibia and fibula. Corky Meng MD Objective Remarks pt intubated with intracranial bolt LLE: + Short leg splint. intact. +swelling. +cap refill RLE: noted road rash over right knee and crepitus with palpation. ligamentously stable BUE: good motion of shoulders. +cap refill Assessment & Plan Assessment and Plan 1) Left Periprosthetic Distal Tib/Fib POD 4 IM nail Maintain splint Nonweightbearing 2) Bilateral Scapula Fxs- non op 3) Left Sup/Inf Rami Fxs- non op Darren Velázquez Jr. August 23, 2016 06:54
[2016-08-23] MEDS ORDERED: THROMBIN (TOPICAL) 5,000 UNIT VIAL ONE (07:08)
[2016-08-23] MEDS ORDERED: BUPIVACAINE/EPINEPHRINE 0.5% 50 ML VIAL ONE (07:08)
[2016-08-23] MEDS ORDERED: ceFAZolin INJ 1,000 MG VIAL ONE (07:09)
[2016-08-23] MEDS ORDERED: GENTAMICIN SULFATE 80 MG/2 ML VIAL ONE ×2 (07:09→13:11)
[2016-08-23] MEDS ORDERED: MANNITOL INJ 50 ML ONE (07:09)
[2016-08-23] MEDS ORDERED: FUROSEMIDE 40 MG/4 ML VIAL ONE (07:09)
[2016-08-23] MEDS ORDERED: SODIUM CHLORIDE 0.9% 20 ML VIAL ONE (07:09)
[2016-08-23] MEDS ORDERED: GELFOAM SIZE 100 ONE (07:09)
[2016-08-23] MEDS: MISCELLANEOUS NURSING INFORMATION SCH ×2 (07:39→21:00)
[2016-08-23] MEDS: NOREPINEPHRINE INJ 4 MG in SODIUM CHLOR 0.9% 250 ML INJ 246 ML IV SCH ×3 (08:02→22:27)
[2016-08-23] MEDS: levETIRAcetam INJ 500 MG in SODIUM CHLORIDE 0.9% INJ 100 ML IV SCH ×2 (08:02→21:15)
[2016-08-23] MEDS: DOCUSATE SODIUM 100 MG CAP PO SCH ×2 (08:02→21:15)
[2016-08-23] MEDS: LACTULOSE SYRUP 20 GM/30 ML CUP PO SCH (08:02)
[2016-08-23] MEDS: fentaNYL DRIP 250 ML IV SCH ×2 (08:02→18:18)
[2016-08-23] MEDS: BACITRACIN TOP OINT 15 GM TUBE TOP SCH ×2 (08:03→21:16)
[2016-08-23] MEDS: CHLORHEXIDINE 0.12% (ORAL KIT) 15 ML CUP MT SCH ×2 (08:03→19:26)
[2016-08-23] MEDS: SODIUM CHLORIDE 0.9% FLUSH 5 ML FLUSH IVF SCH ×2 (08:03→21:15)
--- NOTE | 2016-08-23 12:15 | HHI.PR ---
Neuropsych Progress Notes/Response to Tx Contents of Sessions: Level of Consciousness Time with Patient: 15 minutes Premorbid psychological status Premorbid Cognitive, Emotional and Behavioral Status: Unable to Assess. The patient has no family present to discuss his baseline status. Behavioral Reactions of Patient and Family/Support System: Unable to Assess. No family present. Emotional/Behavioral Status of Patient and Family/Support System: Unable to Assess. Pertinent issues, if appropriate to this patients clinical care, are described in detail above. Maximizing acute care outcome It is recommended that the patient be monitored for emergent behavioral impulsivity as the medical condition evolves. This patients neuropathological challenges may limit their rehabilitation potential going forward, and these challenges will require specialized therapeutic skills to maximize outcome. Anticipated Problems Ongoing areas of concern will include behavioral impulsivity, lack of insight and judgment, which is expected to improve with time and treatment. Treatment Plan This clinician will continue to follow with you throughout the course of this patients rehabilitation treatment, and I will be available to meet with the patients family/support system to facilitate their understanding and the ongoing care of their family member. The goals of neuropsychological intervention shall be both educational and supportive to the family/support system as is deemed clinically appropriate. [facility] Level: III:Localized response-total assist Impression This patient has suffered a very severe traumatic brain injury with expected severe residual neurocognitive impairments. Diagnosis: (1) Major neurocognitive disorder as late effect of traumatic brain injury with behavioral disturbance Status: Acute Progress Note Narrative Ongoing follow-up of patient seen during daily trauma rounds. This is day 5 post injury. The patient is reportedly localizing x 4 with right > left, maintaining ICPs at 8, and goal is now to reduce sedating medications. The patient recently underwent bilateral craniotomy for repair of depressed skull fracture. The patient is now at a [place] [facility]. I will continue to follow. Hector Garrett PhD August 23, 2016 12:14
[2016-08-23] MEDS ORDERED: NORMOSOL R INJ 1,000 ML IV ONE (12:16)
[2016-08-23] MEDS ORDERED: PROPOFOL 200 MG/20 ML AMP IV ONE (12:16)
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
--- NOTE | 2016-08-23 16:13 | PD.OP ---
KOBI Miguel 162 Operative Report Date of Surgery: August 23, 2016 Preoperative Diagnosis: Severe traumatic brain injury with bilateral depressed skull fractures; left fronto parietal epidural hemorrhage Postoperative Diagnosis: Same Procedure: Left frontoparietal craniotomy for epidural hemorrhage evacuation; left frontotemporal craniotomy for elevation fixation of depressed skull fractures; repair of traumatic dural injury with CSF leak using synthetic patch graft; right frontotemporal craniotomy for elevation fixation of depressed skull fracture Anesthesia: Gen. endotracheal by Michaelle Jesus Surgeon: Hardik Bauer M.D. Food Safety Auditor(s): Kathy Stewart Operation and Findings: 56-year-old gentleman who supple from bilateral depressed skull fractures along with a left epidural hemorrhage. Treatment options were discussed with the patient's family including nonsurgical management versus surgical intervention along with risks and benefits involved. There requested to proceed with surgery and gave informed consent. Following administration of general endotracheal anesthesia patient received a gram of vancomycin intravenously and the head was secured in a neutral position on a horseshoe headrest. All pressure points adequately padded and sequential compression devices were in place along with Smith catheter. Initially a left frontoparietal curvilinear incision was made after infiltrating the scalp with 0.5% Marcaine with epinephrine solution extended down through the galea as well as the temporalis muscle and fascia dissected out from the underlying skull. Jasbir clips were used to the scalp edges for hemostasis. A depressed skull fracture was evident extending to the inner table also lacerated the dura with traumatic CSF leak noted. With the craniotome a steve hole was made and the bone flap elevated identified this epidural hemorrhage which was evacuated and the circumferential dural tacking stitches placed with the holes in the craniotomy edges along with central dural tacking stitches. The dura was also approximated using 4 Nurolon stitches along with compressed Gelfoam dural patch graft. The depressed skull fracture was elevated and fixated with the Jose mini plates and the bone flap approximated. The area was thoroughly irrigated with antibiotic solution. The temporalis muscle and fascia was approximated using 2-0 Vicryl interrupted sutures and the galea approximated using 3-0 Vicryl stitches and final scalp closure was with aakash. Subsequently a right linear frontotemporal area scalpel incision was made after infiltrating with 0.5% Marcaine with epinephrine solution extending down through the galea. Jasbir clips were used to the scalp edges for hemostasis and a retractor used for exposure. The depressed skull fracture was identified and a hole was made adjacent to this and with the craniotome the bone flap elevated along with fixation of the skull fractures and bone flap replacement with Jose miniplates. The area was irrigated with antibiotic solution and the galea approximated using 3-0 Vicryl interrupted stitches and final scalp closure was with aakash. A sterile pressure dressing was then applied. Patient then taken back to the intensive care unit. There were no complications and all sponge and needle count was correct at the end of the procedure. Estimated loss was less than 100 cc. Hardik Bauer MD August 23, 2016 16:13
[2016-08-23] MEDS ORDERED: fentaNYL CITRATE 250 MCG/5 ML AMP ONE (17:10)
[2016-08-23] MEDS ORDERED: SODIUM CHLOR 0.9% 1000 ML INJ 1,000 ML IV ONE (17:45)
[2016-08-23] MEDS: MAGNESIUM HYDROXIDE SUSP 30 ML CUP PO SCH (21:15)
[2016-08-24] VITALS (20 sets, daily range): BP systolic 104–146; BP diastolic 60–92; PULSE 74–86; RESP 21–24; TEMP 98.6–99.9; O2SAT 99–100
[2016-08-24] MEDS: PIPERACIL-TAZO 3.375 GM PREMIX 50 ML IV SCH ×4 (01:03→21:01)
[2016-08-24] MEDS: PROPOFOL 1000 MG/100 ML INJ 100 ML IV SCH ×4 (01:03→21:01)
[2016-08-24 03:26] LABS: AUTOMATED NEUTROPHIL # 8.6 TH/MM3 (1.8-7.7); BASOPHIL % 0.3 % (0.0-2.0); EOSINOPHIL # 0.7 TH/MM3 (0-0.4); EOSINOPHIL % 5.6 % (0.0-4.0); HEMATOCRIT 25.4 % (39.0-51.0); HEMO FLAGS DIFF FINAL; LYMPH % 8.9 % (9.0-44.0); MEAN CELL VOLUME 83.6 FL (80.0-100.0); MEAN CORPUSCULAR HEMOGLOBIN 27.7 PG (27.0-34.0); MEAN CORPUSCULAR HGB CONC 33.1 % (32.0-36.0); NEUT % 73.2 % (16.0-70.0); PLATELET COUNT 326 TH/MM3 (150-450); RED BLOOD COUNT 3.03 MIL/MM3 (4.50-5.90); RED CELL DISTRIBUTION WIDTH 14.3 % (11.6-17.2); WHITE BLOOD COUNT 11.8 TH/MM3 (4.0-11.0)
[2016-08-24 03:38] LABS: BICARBONATE 24.6 MEQ/L (21.0-32.0); MAGNESIUM 2.4 MG/DL (1.5-2.5); POTASSIUM 3.5 MEQ/L (3.5-5.1)
[2016-08-24] MEDS: CHLORHEXIDINE GLUCONATE 2 % 1 PACK (2 CLOTHS) TOP SCH (03:41)
[2016-08-24] MEDS: fentaNYL DRIP 250 ML IV SCH (04:15)
[2016-08-24] MEDS: NOREPINEPHRINE INJ 4 MG in SODIUM CHLOR 0.9% 250 ML INJ 246 ML IV SCH ×2 (04:16→19:49)
[2016-08-24 05:01] LABS: ALKALINE PHOSPHATASE 81 U/L (45-117); ALT (GPT) 29 U/L (12-78); ANION GAP 9 MEQ/L (5-15); AST (GOT) 58 U/L (15-37); BLOOD UREA NITROGEN 8 MG/DL (7-18); CHLORIDE 113 MEQ/L (98-107); GLOMERULAR FILTRATION RATE 93 ML/MIN (>89); POTASSIUM 3.5 MEQ/L (3.5-5.1); SODIUM (NA) 146 MEQ/L (136-145); TOTAL BILIRUBIN ADULT 1.2 MG/DL (0.2-1.0)
[2016-08-24 05:08] LABS: BLOOD GAS BASE EXCESS -1.1 mmol/L (-2-2); BLOOD GAS CARBOXYHEMOGLOBIN 1.1 % (0-4); BLOOD GAS HCO3 22 mmol/L (22-26); BLOOD GAS METHEMOGLOBIN 0.7 % (0-2); BLOOD GAS O2 HGB SATURATION 97 % (90-100); BLOOD GAS OXYGEN CONTENT 17.5 Vol % (12.0-20.0); BLOOD GAS PCO2 31 mmHg (38-42); BLOOD GAS PO2 112 mmHg (61-120); BLOOD GAS TOTAL HGB 12.8 G/DL (12.0-16.0)
[2016-08-24 05:09] LABS: CRITICAL VALUE NO; OXYGEN DEVICE VENTILATOR
[2016-08-24 05:10] LABS: DRAW SITE RT RADIAL; FIO2 35 %; VENT SETTINGS PRVC / AC
[2016-08-24 05:11] LABS: NUMBER OF ARTERIAL PUNCTURES 2; STAT NO; ULNAR PULSE PRESENT
--- NOTE | 2016-08-24 06:08 | RADRPT ---
EXAM DATE/TIME: 08/24/2016 04:54 [facility] COMPARISON: CHEST SINGLE AP, August 23, 2016, 5:09. INDICATIONS : Shortness of breath. MEDICAL HISTORY : Non-responsive. SURGICAL HISTORY : Craniotomy. ORIF left tibia ENCOUNTER: Subsequent ACUITY: 4 - 6 days PAIN SCORE: Non-responsive. LOCATION: Bilateral chest FINDINGS: The cardiac silhouette is normal in transverse diameter. The lungs are free of acute parenchymal opac ity. No effusions are identified. Support lines and tubes are in satisfactory position. CONCLUSION: 1. No acute cardiopulmonary disease. Karsten Holland MD on August 24, 2016 at 6:06 Board Certified Radiologist. This report was verified electronically.
[2016-08-24] MEDS: PANTOPRAZOLE SODIUM 40 MG VIAL IVP SCH (06:12)
[2016-08-24] MEDS: CHLORHEXIDINE 0.12% (ORAL KIT) 15 ML CUP MT SCH ×2 (08:00→20:00)
[2016-08-24] MEDS: DOCUSATE SODIUM 100 MG CAP PO SCH ×2 (08:59→21:01)
[2016-08-24] MEDS: levETIRAcetam INJ 500 MG in SODIUM CHLORIDE 0.9% INJ 100 ML IV SCH ×2 (08:59→21:01)
[2016-08-24] MEDS: LACTULOSE SYRUP 20 GM/30 ML CUP PO SCH (09:00)
[2016-08-24] MEDS: BACITRACIN TOP OINT 15 GM TUBE TOP SCH ×2 (09:00→21:00)
[2016-08-24] MEDS: SODIUM CHLORIDE 0.9% FLUSH 5 ML FLUSH IVF SCH ×2 (09:00→21:00)
[2016-08-24] MEDS: POTASSIUM CHLOR 40 MEQ PREMIX 100 ML IV PRN (09:00)
[2016-08-24] MEDS: MISCELLANEOUS NURSING INFORMATION SCH ×2 (09:00→21:00)
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
--- NOTE | 2016-08-24 13:23 | HHI.PR ---
Neuropsych Progress Notes/Response to Tx Contents of Sessions: Level of Consciousness Time with Patient: 15 minutes Premorbid psychological status Premorbid Cognitive, Emotional and Behavioral Status: Unable to Assess. The patient has no family present to discuss his baseline status. Behavioral Reactions of Patient and Family/Support System: Unable to Assess. No family present. Emotional/Behavioral Status of Patient and Family/Support System: Unable to Assess. Pertinent issues, if appropriate to this patients clinical care, are described in detail above. Maximizing acute care outcome It is recommended that the patient be monitored for emergent behavioral impulsivity as the medical condition evolves. This patients neuropathological challenges may limit their rehabilitation potential going forward, and these challenges will require specialized therapeutic skills to maximize outcome. Anticipated Problems Ongoing areas of concern will include behavioral impulsivity, lack of insight and judgment, which is expected to improve with time and treatment. Treatment Plan This clinician will continue to follow with you throughout the course of this patients rehabilitation treatment, and I will be available to meet with the patients family/support system to facilitate their understanding and the ongoing care of their family member. The goals of neuropsychological intervention shall be both educational and supportive to the family/support system as is deemed clinically appropriate. [facility] Level: III:Localized response-total assist Impression This patient has suffered a very severe traumatic brain injury with expected severe residual neurocognitive impairments. Diagnosis: (1) Major neurocognitive disorder as late effect of traumatic brain injury with behavioral disturbance Status: Acute Progress Note Narrative Ongoing follow-up of patient seen during daily trauma rounds. This is day 6 post injury. He withdraws to pain on RLE, all other flaccid. His ICPs are 11 and FIO2 is 35. He remains sedated and intubated. He is at a [facility] at present. No family present. I will continue to follow. Hector Garrett PhD August 24, 2016 13:23
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
[2016-08-24] MEDS: ACETAMINOPHEN 325 MG TAB PO PRN ×2 (14:58→21:02)
[2016-08-24] MEDS: DOPamine 800 MG/D5W PREMIX 500 ML IV SCH (15:46)
[2016-08-24 17:03] LABS: POTASSIUM 3.8 MEQ/L (3.5-5.1)
[2016-08-24] MEDS ORDERED: NOREPINEPHRINE-DEXTROSE DRIP 250 ML IV ONE (18:27)
[2016-08-24] MEDS: MAGNESIUM HYDROXIDE SUSP 30 ML CUP PO SCH (21:01)
[2016-08-24] MEDS: SODIUM CHLORIDE 0.9% FLUSH 10 ML FLUSH IV FLUSH PRN (21:01)
[2016-08-24 21:45] LABS: BLOOD GAS BASE EXCESS -1.3 mmol/L (-2-2); BLOOD GAS CARBOXYHEMOGLOBIN 1.2 % (0-4); BLOOD GAS HCO3 22 mmol/L (22-26); BLOOD GAS METHEMOGLOBIN 0.8 % (0-2); BLOOD GAS O2 HGB SATURATION 96 % (90-100); BLOOD GAS OXYGEN CONTENT 17.5 Vol % (12.0-20.0); BLOOD GAS PCO2 33 mmHg (38-42); BLOOD GAS PO2 107 mmHg (61-120); BLOOD GAS TOTAL HGB 12.9 G/DL (12.0-16.0); CRITICAL VALUE NO; DRAW SITE LT RADIAL; FIO2 35 %; NUMBER OF ARTERIAL PUNCTURES 1; OXYGEN DEVICE VENTILATOR; STAT NO; TEMP CORR TO 98.6; ULNAR PULSE PRESENT; VENT SETTINGS PRVC / AC /
[2016-08-25] VITALS (21 sets, daily range): BP systolic 108–131; BP diastolic 59–72; PULSE 74–88; RESP 20–24; TEMP 98.6–100.2; O2SAT 99–100
[2016-08-25] MEDS: NOREPINEPHRINE INJ 4 MG in SODIUM CHLOR 0.9% 250 ML INJ 246 ML IV SCH ×4 (02:30→22:44)
[2016-08-25] MEDS: PIPERACIL-TAZO 3.375 GM PREMIX 50 ML IV SCH ×4 (02:30→19:54)
[2016-08-25] MEDS: PROPOFOL 1000 MG/100 ML INJ 100 ML IV SCH ×6 (02:30→23:21)
[2016-08-25] MEDS ORDERED: EPINEPHrine HCL (1:10,000) 1 MG/10 ML SYRINGE ONE (03:28)
[2016-08-25] MEDS ORDERED: ATROPINE SULFATE 1 MG/10 ML SYRINGE ONE (03:28)
[2016-08-25] MEDS ORDERED: LIDOCAINE HCL 2% 100 MG/5 ML SYRINGE ONE (03:28)
[2016-08-25] MEDS: CHLORHEXIDINE GLUCONATE 2 % 1 PACK (2 CLOTHS) TOP SCH (04:00)
--- NOTE | 2016-08-25 04:53 | RADRPT ---
EXAM DATE/TIME: 08/25/2016 04:23 [facility] COMPARISON: CHEST SINGLE AP, August 24, 2016, 4:54. INDICATIONS : Short of breath. MEDICAL HISTORY : None. SURGICAL HISTORY : Craniotomy. ORIF left tibia. ENCOUNTER: Subsequent ACUITY: 1 week PAIN SCORE: Non-responsive. LOCATION: Bilateral chest FINDINGS: The cardiac silhouette is enlarged in transverse diameter. Support lines and tubes are in satisfactor y position. The lungs are free of acute parenchymal opacity. No effusions are identified. CONCLUSION: 1. No acute cardiopulmonary disease. Karsten Holland MD on August 25, 2016 at 4:52 Board Certified Radiologist. This report was verified electronically.
[2016-08-25 05:02] LABS: AUTOMATED NEUTROPHIL # 9.1 TH/MM3 (1.8-7.7); BASOPHIL # 0.1 TH/MM3 (0-0.2); BASOPHIL % 0.5 % (0.0-2.0); EOSINOPHIL # 0.7 TH/MM3 (0-0.4); EOSINOPHIL % 5.3 % (0.0-4.0); HEMATOCRIT 24.1 % (39.0-51.0); HEMO FLAGS DIFF FINAL; LYMPH % 9.8 % (9.0-44.0); LYMPHOCYTE # 1.3 TH/MM3 (1.0-4.8); MEAN CELL VOLUME 84.1 FL (80.0-100.0); MEAN CORPUSCULAR HEMOGLOBIN 27.5 PG (27.0-34.0); MEAN CORPUSCULAR HGB CONC 32.7 % (32.0-36.0); MONO % 13.2 % (0.0-8.0); NEUT % 71.2 % (16.0-70.0); PLATELET COUNT 360 TH/MM3 (150-450); RED BLOOD COUNT 2.86 MIL/MM3 (4.50-5.90); RED CELL DISTRIBUTION WIDTH 14.3 % (11.6-17.2); WHITE BLOOD COUNT 12.8 TH/MM3 (4.0-11.0)
--- NOTE | 2016-08-25 05:07 | RADRPT ---
EXAM DATE/TIME: 08/25/2016 04:13 [facility] COMPARISON: CT BRAIN W/O CONTRAST, August 23, 2016, 4:28. INDICATIONS : Follow up hemorrhage. RADIATION DOSE: 56.45 CTDIvol (mGy) MEDICAL HISTORY : Non-responsive. SURGICAL HISTORY : Non-responsive. ENCOUNTER: Subsequent ACUITY: 1 week PAIN SCALE: Non-responsive LOCATION: TECHNIQUE: Multiple contiguous axial images were obtained of the head. Using automated exposure control and adj ustment of the mA and/or kV according to patient size, radiation dose was kept as low as reasonably a chievable to obtain optimal diagnostic quality images. FINDINGS: There is evolving contusion the anterior right temporal lobe with evacuation of the left epidural hem atoma. Small amount of subarachnoid blood is present over the right parietal lobe. Posterior fossa st ructures demonstrate contusion within the brainstem at the level of the midbrain. CONCLUSION: 1. Evolving contusions. No acute hemorrhage is identified 2. Extensive sinus disease Karsten Holland MD on August 25, 2016 at 5:03 Board Certified Radiologist. This report was verified electronically.
[2016-08-25 05:23] LABS: ALT (GPT) 28 U/L (12-78); ANION GAP 7 MEQ/L (5-15); AST (GOT) 53 U/L (15-37); BICARBONATE 25.8 MEQ/L (21.0-32.0); BICARBONATE 26.2 MEQ/L (21.0-32.0); BLOOD UREA NITROGEN 10 MG/DL (7-18); CHLORIDE 108 MEQ/L (98-107); GLOMERULAR FILTRATION RATE 108 ML/MIN (>89); MAGNESIUM 2.7 MG/DL (1.5-2.5); MAGNESIUM 2.8 MG/DL (1.5-2.5); POTASSIUM 3.6 MEQ/L (3.5-5.1); POTASSIUM 3.7 MEQ/L (3.5-5.1); SODIUM (NA) 141 MEQ/L (136-145)
[2016-08-25 05:26] LABS: ALKALINE PHOSPHATASE 143 U/L (45-117)
[2016-08-25] MEDS: fentaNYL DRIP 250 ML IV SCH ×3 (05:35→23:21)
[2016-08-25] MEDS: PANTOPRAZOLE SODIUM 40 MG VIAL IVP SCH (06:05)
[2016-08-25] MEDS: DOCUSATE SODIUM 100 MG CAP PO SCH ×2 (08:24→19:55)
[2016-08-25] MEDS: MISCELLANEOUS NURSING INFORMATION SCH ×2 (08:24→19:55)
[2016-08-25] MEDS: LACTULOSE SYRUP 20 GM/30 ML CUP PO SCH (08:24)
[2016-08-25] MEDS: SODIUM CHLORIDE 0.9% FLUSH 5 ML FLUSH IVF SCH ×2 (08:24→19:55)
[2016-08-25] MEDS: CHLORHEXIDINE 0.12% (ORAL KIT) 15 ML CUP MT SCH ×2 (08:25→19:54)
[2016-08-25] MEDS: BACITRACIN TOP OINT 15 GM TUBE TOP SCH ×2 (08:25→19:55)
[2016-08-25] MEDS ORDERED: LIDOCAINE HCL 1% 20 ML VIAL E-TRACHE PRN (10:45)
[2016-08-25] MEDS ORDERED: 3% SALINE INJ 500 ML IV ONE (10:45)
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
[2016-08-25] MEDS ORDERED: SODIUM CHLORIDE 23.4% INJ 240 MEQ in SYRINGE/BAG 1 EA IV ONE (11:30)
--- NOTE | 2016-08-25 12:07 | HHI.PR ---
Neuropsych Emotional Emotional: UnabletoAssess: Emotional, Anxious/Fearful, Depressed/Sad, Hostile/ Resentful, Irritable/Angry/Frustrate, Labile, Constricted/Blunted Behavior Behavior: Unable to Asses: Behavior, Coping/Acceptance, Cooperative w/ Treatment, Motivation, Frustration Tolerance/[place], Impulsive/Agitated, Suicidal/ Homicidal Risk Cognitive Cognitive: Unable to Asses: Cognitive, Attention/Concentration, Confused/ Orientation, Insight/Awareness, Judgement/Problem-Solving, Memory Progress Notes/Response to Tx Contents of Sessions: Level of Consciousness Time with Patient: 15 minutes Premorbid psychological status Premorbid Cognitive, Emotional and Behavioral Status: Unable to Assess. The patient has no family present to discuss his baseline status. Behavioral Reactions of Patient and Family/Support System: Unable to Assess. No family present. Emotional/Behavioral Status of Patient and Family/Support System: Unable to Assess. Pertinent issues, if appropriate to this patients clinical care, are described in detail above. Maximizing acute care outcome It is recommended that the patient be monitored for emergent behavioral impulsivity as the medical condition evolves. This patients neuropathological challenges may limit their rehabilitation potential going forward, and these challenges will require specialized therapeutic skills to maximize outcome. Anticipated Problems Ongoing areas of concern will include behavioral impulsivity, lack of insight and judgment, which is expected to improve with time and treatment. Treatment Plan This clinician will continue to follow with you throughout the course of this patients rehabilitation treatment, and I will be available to meet with the patients family/support system to facilitate their understanding and the ongoing care of their family member. The goals of neuropsychological intervention shall be both educational and supportive to the family/support system as is deemed clinically appropriate. [facility] Level: III:Localized response-total assist Impression This patient has suffered a very severe traumatic brain injury with expected severe residual neurocognitive impairments. Diagnosis: (1) Major neurocognitive disorder as late effect of traumatic brain injury with behavioral disturbance Status: Acute Progress Note Narrative Ongoing follow-up of patient seen during daily trauma rounds. This is day 7 post injury. The patient's ICPs have been fluctuating, and it is believed that the fluctuations are related to a biomechanical defect of the instrument that is impeding the accuracy of the reading at this point. The patient localizes with his right > left. He is scheduled for a tracheostomy tomorrow. The patient is a [place] III at this time. I will continue to follow. Hector Garrett PhD August 25, 2016 12:07
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
[2016-08-25 17:38] LABS: BICARBONATE 24.8 MEQ/L (21.0-32.0); POTASSIUM 3.3 MEQ/L (3.5-5.1)
[2016-08-25] MEDS: POTASSIUM CHLOR 20 MEQ PREMIX 100 ML IV PRN ×2 (17:58→19:56)
[2016-08-25] MEDS: MORPHINE SULFATE 4 MG/ML INJ IV PUSH PRN (17:59)
[2016-08-25] MEDS: MAGNESIUM HYDROXIDE SUSP 30 ML CUP PO SCH (19:54)
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
[2016-08-26] VITALS (17 sets, daily range): BP systolic 104–150; BP diastolic 62–86; PULSE 78–98; RESP 20–24; TEMP 98.6–99.9; O2SAT 98–100
[2016-08-26] MEDS: PIPERACIL-TAZO 3.375 GM PREMIX 50 ML IV SCH ×4 (02:53→21:01)
[2016-08-26] MEDS: CHLORHEXIDINE GLUCONATE 2 % 1 PACK (2 CLOTHS) TOP SCH (04:00)
[2016-08-26] MEDS: NOREPINEPHRINE INJ 4 MG in SODIUM CHLOR 0.9% 250 ML INJ 246 ML IV SCH ×4 (05:15→22:08)
[2016-08-26 05:30] LABS: BICARBONATE 24.8 MEQ/L (21.0-32.0); MAGNESIUM 2.7 MG/DL (1.5-2.5); POTASSIUM 3.7 MEQ/L (3.5-5.1)
[2016-08-26] MEDS: PROPOFOL 1000 MG/100 ML INJ 100 ML IV SCH ×4 (05:36→17:16)
[2016-08-26] MEDS: PANTOPRAZOLE SODIUM 40 MG VIAL IVP SCH (06:39)
[2016-08-26] MEDS: DOCUSATE SODIUM 100 MG CAP PO SCH ×2 (08:11→21:00)
[2016-08-26] MEDS: LACTULOSE SYRUP 20 GM/30 ML CUP PO SCH (08:11)
[2016-08-26] MEDS: MISCELLANEOUS NURSING INFORMATION SCH ×2 (08:12→21:00)
[2016-08-26] MEDS: BACITRACIN TOP OINT 15 GM TUBE TOP SCH ×2 (08:12→21:00)
[2016-08-26] MEDS: CHLORHEXIDINE 0.12% (ORAL KIT) 15 ML CUP MT SCH ×2 (08:12→20:00)
[2016-08-26] MEDS: SODIUM CHLORIDE 0.9% FLUSH 5 ML FLUSH IVF SCH ×2 (08:12→21:00)
[2016-08-26 08:25] LABS: POTASSIUM 3.9 MEQ/L (3.5-5.1)
[2016-08-26] MEDS ORDERED: LIDOCAINE 1%/EPINEPHrine 1:100,000 SOLN 30 ML VIAL INFIL ONE (09:00)
[2016-08-26] MEDS ORDERED: LIDOCAINE 1%/EPINEPHrine 1:100,000 SOLN 20 ML VIAL INFIL ONE (09:45)
[2016-08-26] MEDS: fentaNYL DRIP 250 ML IV SCH ×2 (10:10→22:08)
[2016-08-26 10:30] LABS: AUTOMATED NEUTROPHIL # 9.7 TH/MM3 (1.8-7.7); BASOPHIL % 0.3 % (0.0-2.0); EOSINOPHIL # 0.5 TH/MM3 (0-0.4); EOSINOPHIL % 4.2 % (0.0-4.0); HEMATOCRIT 21.8 % (39.0-51.0); HEMO FLAGS DIFF FINAL; LYMPH % 8.1 % (9.0-44.0); MEAN CELL VOLUME 84.6 FL (80.0-100.0); MEAN CORPUSCULAR HEMOGLOBIN 27.8 PG (27.0-34.0); MEAN CORPUSCULAR HGB CONC 32.8 % (32.0-36.0); MONO % 9.8 % (0.0-8.0); NEUT % 77.6 % (16.0-70.0); PLATELET COUNT 421 TH/MM3 (150-450); RED BLOOD COUNT 2.58 MIL/MM3 (4.50-5.90); RED CELL DISTRIBUTION WIDTH 14.9 % (11.6-17.2); WHITE BLOOD COUNT 12.5 TH/MM3 (4.0-11.0)
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
[2016-08-26] MEDS: ACETAMINOPHEN 325 MG TAB PO PRN (11:08)
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
[2016-08-26] MEDS ORDERED: SODIUM CHLOR 0.9% 250 ML INJ 250 ML IV ONE (11:30)
--- NOTE | 2016-08-26 11:55 | HHI.PR ---
Neuropsych Emotional Emotional: UnabletoAssess: Emotional, Anxious/Fearful, Depressed/Sad, Hostile/ Resentful, Irritable/Angry/Frustrate, Labile, Constricted/Blunted Behavior Behavior: Unable to Asses: Behavior, Coping/Acceptance, Cooperative w/ Treatment, Motivation, Frustration Tolerance/[place], Impulsive/Agitated, Suicidal/ Homicidal Risk Cognitive Cognitive: Unable to Asses: Cognitive, Attention/Concentration, Confused/ Orientation, Insight/Awareness, Judgement/Problem-Solving, Memory Progress Notes/Response to Tx Contents of Sessions: Level of Consciousness Time with Patient: 15 minutes Premorbid psychological status Premorbid Cognitive, Emotional and Behavioral Status: Unable to Assess. The patient has no family present to discuss his baseline status. Behavioral Reactions of Patient and Family/Support System: Unable to Assess. No family present. Emotional/Behavioral Status of Patient and Family/Support System: Unable to Assess. Pertinent issues, if appropriate to this patients clinical care, are described in detail above. Maximizing acute care outcome It is recommended that the patient be monitored for emergent behavioral impulsivity as the medical condition evolves. This patients neuropathological challenges may limit their rehabilitation potential going forward, and these challenges will require specialized therapeutic skills to maximize outcome. Anticipated Problems Ongoing areas of concern will include behavioral impulsivity, lack of insight and judgment, which is expected to improve with time and treatment. Treatment Plan This clinician will continue to follow with you throughout the course of this patients rehabilitation treatment, and I will be available to meet with the patients family/support system to facilitate their understanding and the ongoing care of their family member. The goals of neuropsychological intervention shall be both educational and supportive to the family/support system as is deemed clinically appropriate. [facility] Level: III:Localized response-total assist Impression This patient has suffered a very severe traumatic brain injury with expected severe residual neurocognitive impairments. Diagnosis: (1) Major neurocognitive disorder as late effect of traumatic brain injury with behavioral disturbance Status: Acute Progress Note Narrative Ongoing follow-up of patient seen during daily trauma rounds. This is day 8 post injury. The patient is obtunded with ICPs in the 8 to 22 range and he will need a trach next week. He remains intubated and sedated on propofol at 45 , also receiving Fentanyl and Morphine. He does localize to pain. He is a [place]o III. I will continue to follow. Hector Garrett PhD August 26, 2016 11:55
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
[2016-08-26] MEDS: ALTEPLASE RECOMBINANT 2 MG VIAL IV FLUSH SCH ×2 (14:33→22:27)
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
[2016-08-26 17:05] LABS: BICARBONATE 25.4 MEQ/L (21.0-32.0)
[2016-08-26] MEDS: 3% SALINE INJ 500 ML IV SCH (17:17)
[2016-08-26 18:38] LABS: AUTOMATED NEUTROPHIL # 10.7 TH/MM3 (1.8-7.7); BASOPHIL % 0.3 % (0.0-2.0); EOSINOPHIL # 0.5 TH/MM3 (0-0.4); EOSINOPHIL % 3.5 % (0.0-4.0); HEMATOCRIT 26.3 % (39.0-51.0); HEMO FLAGS DIFF FINAL; LYMPH % 11.1 % (9.0-44.0); LYMPHOCYTE # 1.6 TH/MM3 (1.0-4.8); MEAN CELL VOLUME 84.6 FL (80.0-100.0); MEAN CORPUSCULAR HEMOGLOBIN 27.4 PG (27.0-34.0); MEAN CORPUSCULAR HGB CONC 32.4 % (32.0-36.0); MONO % 8.8 % (0.0-8.0); NEUT % 76.3 % (16.0-70.0); PLATELET COUNT 449 TH/MM3 (150-450); RED BLOOD COUNT 3.11 MIL/MM3 (4.50-5.90); RED CELL DISTRIBUTION WIDTH 14.6 % (11.6-17.2); WHITE BLOOD COUNT 14.1 TH/MM3 (4.0-11.0)
[2016-08-26 18:53] LABS: BLOOD, URINE NEG (NEG); GLUCOSE,URINE NEG (NEG); KETONE, URINE NEG (NEG); MUCUS URINE FEW /lpf (OCC); NITRITE,URINE NEG (NEG); URINE COLOR YELLOW (YELLW/STRAW)
[2016-08-26 19:01] LABS: COMMENT (UR) CATH-CULT NOT IND; CULTURE IF INDICATED CATH CULTURE NOT IND
[2016-08-26] MEDS: MAGNESIUM HYDROXIDE SUSP 30 ML CUP PO SCH (21:00)
[2016-08-27] VITALS (18 sets, daily range): BP systolic 110–129; BP diastolic 65–87; PULSE 88–114; RESP 18–24; TEMP 99.2–101.3; O2SAT 97–100
[2016-08-27] MEDS: ACETAMINOPHEN 325 MG TAB PO PRN (00:51)
[2016-08-27] MEDS: PROPOFOL 1000 MG/100 ML INJ 100 ML IV SCH ×5 (01:24→20:37)
[2016-08-27] MEDS: PIPERACIL-TAZO 3.375 GM PREMIX 50 ML IV SCH ×2 (01:25→07:54)
[2016-08-27] MEDS: CHLORHEXIDINE GLUCONATE 2 % 1 PACK (2 CLOTHS) TOP SCH (03:58)
[2016-08-27 04:41] LABS: AUTOMATED NEUTROPHIL # 10.7 TH/MM3 (1.8-7.7); BASOPHIL # 0.1 TH/MM3 (0-0.2); BASOPHIL % 0.9 % (0.0-2.0); EOSINOPHIL # 0.5 TH/MM3 (0-0.4); EOSINOPHIL % 3.8 % (0.0-4.0); HEMO FLAGS DIFF FINAL; LYMPH % 11.2 % (9.0-44.0); LYMPHOCYTE # 1.6 TH/MM3 (1.0-4.8); MEAN CELL VOLUME 83.9 FL (80.0-100.0); MEAN CORPUSCULAR HEMOGLOBIN 27.5 PG (27.0-34.0); MEAN CORPUSCULAR HGB CONC 32.8 % (32.0-36.0); MONO % 8.4 % (0.0-8.0); NEUT % 75.7 % (16.0-70.0); PLATELET COUNT 461 TH/MM3 (150-450); RED CELL DISTRIBUTION WIDTH 14.6 % (11.6-17.2); WHITE BLOOD COUNT 14.2 TH/MM3 (4.0-11.0)
[2016-08-27 04:58] LABS: ANION GAP 10 MEQ/L (5-15); AST (GOT) 77 U/L (15-37); BICARBONATE 24.4 MEQ/L (21.0-32.0); BLOOD UREA NITROGEN 8 MG/DL (7-18); CHLORIDE 111 MEQ/L (98-107); GLOMERULAR FILTRATION RATE 115 ML/MIN (>89); SODIUM (NA) 145 MEQ/L (136-145)
[2016-08-27 05:01] LABS: ALKALINE PHOSPHATASE 173 U/L (45-117); ALT (GPT) 45 U/L (12-78); TOTAL BILIRUBIN ADULT 0.8 MG/DL (0.2-1.0)
[2016-08-27] MEDS: PANTOPRAZOLE SODIUM 40 MG VIAL IVP SCH (05:50)
[2016-08-27] MEDS: CHLORHEXIDINE 0.12% (ORAL KIT) 15 ML CUP MT SCH ×2 (07:54→20:41)
[2016-08-27] MEDS: LACTULOSE SYRUP 20 GM/30 ML CUP PO SCH (08:09)
[2016-08-27] MEDS: DOCUSATE SODIUM 100 MG CAP PO SCH ×2 (08:09→20:41)
[2016-08-27] MEDS: SODIUM CHLORIDE 0.9% FLUSH 5 ML FLUSH IVF SCH ×2 (08:09→20:41)
[2016-08-27] MEDS: BACITRACIN TOP OINT 15 GM TUBE TOP SCH ×2 (08:10→20:46)
[2016-08-27] MEDS: MISCELLANEOUS NURSING INFORMATION SCH ×2 (08:10→20:46)
[2016-08-27] MEDS: ENOXAPARIN SODIUM 40 MG/0.4 ML SYRINGE SQ SCH (11:05)
[2016-08-27] MEDS: fentaNYL DRIP 250 ML IV SCH (11:05)
[2016-08-27] MEDS: 3% SALINE INJ 500 ML IV SCH (11:06)
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
[2016-08-27] MEDS: PIPERACIL-TAZO 4.5 GM PREMIX 100 ML IV SCH ×2 (14:02→20:37)
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
[2016-08-27] MEDS: MAGNESIUM HYDROXIDE SUSP 30 ML CUP PO SCH (20:36)
[2016-08-28] VITALS (16 sets, daily range): BP systolic 99–122; BP diastolic 60–89; PULSE 100–122; RESP 18–21; TEMP 99.1–100.8; O2SAT 97–100
[2016-08-28] MEDS: PIPERACIL-TAZO 4.5 GM PREMIX 100 ML IV SCH ×4 (01:00→20:21)
[2016-08-28] MEDS: CHLORHEXIDINE GLUCONATE 2 % 1 PACK (2 CLOTHS) TOP SCH (03:27)
[2016-08-28 05:26] LABS: AUTOMATED NEUTROPHIL # 13.3 TH/MM3 (1.8-7.7); BASOPHIL # 0.2 TH/MM3 (0-0.2); BASOPHIL % 1.1 % (0.0-2.0); EOSINOPHIL # 0.4 TH/MM3 (0-0.4); EOSINOPHIL % 2.2 % (0.0-4.0); HEMATOCRIT 24.6 % (39.0-51.0); HEMO FLAGS DIFF FINAL; LYMPH % 10.9 % (9.0-44.0); LYMPHOCYTE # 1.8 TH/MM3 (1.0-4.8); MEAN CELL VOLUME 84.3 FL (80.0-100.0); MEAN CORPUSCULAR HGB CONC 33.3 % (32.0-36.0); MONO % 5.5 % (0.0-8.0); NEUT % 80.3 % (16.0-70.0); PLATELET COUNT 560 TH/MM3 (150-450); RED BLOOD COUNT 2.92 MIL/MM3 (4.50-5.90); RED CELL DISTRIBUTION WIDTH 14.8 % (11.6-17.2); WHITE BLOOD COUNT 16.6 TH/MM3 (4.0-11.0)
[2016-08-28 05:49] LABS: ALKALINE PHOSPHATASE 176 U/L (45-117); ALT (GPT) 51 U/L (12-78); ANION GAP 7 MEQ/L (5-15); AST (GOT) 57 U/L (15-37); BICARBONATE 28.9 MEQ/L (21.0-32.0); BLOOD UREA NITROGEN 11 MG/DL (7-18); CHLORIDE 107 MEQ/L (98-107); GLOMERULAR FILTRATION RATE 101 ML/MIN (>89); POTASSIUM 4.3 MEQ/L (3.5-5.1); SODIUM (NA) 143 MEQ/L (136-145); TOTAL BILIRUBIN ADULT 0.7 MG/DL (0.2-1.0)
[2016-08-28] MEDS: PANTOPRAZOLE SODIUM 40 MG VIAL IVP SCH (06:06)
[2016-08-28] MEDS: CHLORHEXIDINE 0.12% (ORAL KIT) 15 ML CUP MT SCH ×2 (07:46→20:20)
[2016-08-28] MEDS ORDERED: FUROSEMIDE 40 MG/4 ML VIAL IV PUSH ONE (08:00)
[2016-08-28] MEDS: fentaNYL DRIP 250 ML IV SCH ×2 (08:30→23:04)
[2016-08-28] MEDS: PROPOFOL 1000 MG/100 ML INJ 100 ML IV SCH ×3 (08:30→20:22)
[2016-08-28] MEDS: LACTULOSE SYRUP 20 GM/30 ML CUP PO SCH (08:30)
[2016-08-28] MEDS: BACITRACIN TOP OINT 15 GM TUBE TOP SCH ×2 (08:30→20:26)
[2016-08-28] MEDS: SODIUM CHLORIDE 0.9% FLUSH 5 ML FLUSH IVF SCH ×2 (08:30→20:23)
[2016-08-28] MEDS: DOCUSATE SODIUM 100 MG CAP PO SCH ×2 (08:30→20:21)
[2016-08-28] MEDS: MISCELLANEOUS NURSING INFORMATION SCH ×2 (08:32→21:00)
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
--- NOTE | 2016-08-28 10:25 | RADRPT ---
EXAM DATE/TIME: 08/28/2016 10:06 [facility] COMPARISON: CHEST SINGLE AP, August 25, 2016, 4:23. INDICATIONS : Short of breath. MEDICAL HISTORY : None. SURGICAL HISTORY : Crainotomy. ENCOUNTER: Subsequent ACUITY: 1 week PAIN SCORE: Non-responsive. LOCATION: Bilateral chest FINDINGS: A single AP semierect portable view of the chest was obtained and demonstrates the endotracheal tube in place with the tip 4 cm above the dylon. A nasogastric tube is again seen coursing through the es ophagus into the stomach. The right subclavian central venous line remains in place. There are no con fluent infiltrates or effusions. The heart size is within normal limits with no perihilar edema. Over lying artifact is noted from oxygen tubing and electrocardiogram leads. CONCLUSION: 1. No acute cardiopulmonary disease. 2. The patient remains intubated. Darren Watkins MD on August 28, 2016 at 10:22 Board Certified Radiologist. This report was verified electronically.
[2016-08-28] MEDS: ENOXAPARIN SODIUM 40 MG/0.4 ML SYRINGE SQ SCH (11:05)
[2016-08-28] MEDS: 3% SALINE INJ 500 ML IV SCH ×2 (12:12→23:05)
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
[2016-08-28 16:53] LABS: MAGNESIUM 2.5 MG/DL (1.5-2.5); POTASSIUM 3.9 MEQ/L (3.5-5.1)
[2016-08-28] MEDS: MAGNESIUM HYDROXIDE SUSP 30 ML CUP PO SCH (20:21)
[2016-08-28] MEDS: ACETAMINOPHEN 325 MG TAB PO PRN (23:26)
[2016-08-29] VITALS (19 sets, daily range): BP systolic 96–106; BP diastolic 52–65; PULSE 89–113; RESP 18–19; TEMP 99.3–100.9; O2SAT 89–100
[2016-08-29] MEDS: PIPERACIL-TAZO 4.5 GM PREMIX 100 ML IV SCH ×4 (00:52→20:07)
[2016-08-29] MEDS: PROPOFOL 1000 MG/100 ML INJ 100 ML IV SCH ×4 (00:59→20:08)
[2016-08-29] MEDS: CHLORHEXIDINE GLUCONATE 2 % 1 PACK (2 CLOTHS) TOP SCH (01:44)
[2016-08-29 03:19] LABS: AUTOMATED NEUTROPHIL # 11.7 TH/MM3 (1.8-7.7); BASOPHIL # 0.1 TH/MM3 (0-0.2); BASOPHIL % 0.4 % (0.0-2.0); EOSINOPHIL # 0.6 TH/MM3 (0-0.4); EOSINOPHIL % 3.6 % (0.0-4.0); HEMO FLAGS DIFF FINAL; LYMPH % 15.9 % (9.0-44.0); LYMPHOCYTE # 2.5 TH/MM3 (1.0-4.8); MEAN CELL VOLUME 85.1 FL (80.0-100.0); MEAN CORPUSCULAR HEMOGLOBIN 27.6 PG (27.0-34.0); MEAN CORPUSCULAR HGB CONC 32.4 % (32.0-36.0); MONO % 7.2 % (0.0-8.0); NEUT % 72.9 % (16.0-70.0); PLATELET COUNT 600 TH/MM3 (150-450); RED BLOOD COUNT 2.82 MIL/MM3 (4.50-5.90); RED CELL DISTRIBUTION WIDTH 14.9 % (11.6-17.2); WHITE BLOOD COUNT 16.1 TH/MM3 (4.0-11.0)
[2016-08-29 03:49] LABS: ALT (GPT) 53 U/L (12-78); ANION GAP 7 MEQ/L (5-15); AST (GOT) 48 U/L (15-37); BICARBONATE 30.4 MEQ/L (21.0-32.0); BLOOD UREA NITROGEN 14 MG/DL (7-18); CHLORIDE 110 MEQ/L (98-107); GLOMERULAR FILTRATION RATE 108 ML/MIN (>89); POTASSIUM 3.9 MEQ/L (3.5-5.1); SODIUM (NA) 147 MEQ/L (136-145)
[2016-08-29 03:51] LABS: ALKALINE PHOSPHATASE 180 U/L (45-117); TOTAL BILIRUBIN ADULT 0.7 MG/DL (0.2-1.0)
[2016-08-29] MEDS: PANTOPRAZOLE SODIUM 40 MG VIAL IVP SCH (05:56)
[2016-08-29] MEDS: DOCUSATE SODIUM 100 MG CAP PO SCH ×2 (08:24→20:07)
[2016-08-29] MEDS: MISCELLANEOUS NURSING INFORMATION SCH ×2 (08:24→20:07)
[2016-08-29] MEDS: SODIUM CHLORIDE 0.9% FLUSH 5 ML FLUSH IVF SCH ×2 (08:24→20:07)
[2016-08-29] MEDS: CHLORHEXIDINE 0.12% (ORAL KIT) 15 ML CUP MT SCH ×2 (08:24→20:07)
[2016-08-29] MEDS: BACITRACIN TOP OINT 15 GM TUBE TOP SCH ×2 (08:25→20:15)
[2016-08-29] MEDS: MAGNESIUM HYDROXIDE SUSP 30 ML CUP PO SCH (08:25)
[2016-08-29] MEDS: LACTULOSE SYRUP 20 GM/30 ML CUP PO SCH (08:25)
[2016-08-29] MEDS: ENOXAPARIN SODIUM 40 MG/0.4 ML SYRINGE SQ SCH (08:25)
[2016-08-29] MEDS: fentaNYL DRIP 250 ML IV SCH ×2 (08:56→23:34)
[2016-08-29 09:14] LABS: MAGNESIUM 2.7 MG/DL (1.5-2.5)
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
[2016-08-29] MEDS: 3% SALINE INJ 500 ML IV SCH ×2 (11:14→21:33)
--- NOTE | 2016-08-29 11:22 | EKG ---
Date Performed: 08/28/2016 Time Performed: 16:05:08 PTAGE: 56 years EKG: Sinus tachycardia with PAC(s). Normal ECG except for rate NO PREVIOUS TRACING DOCTOR: Aristides Adler Interpretating Date/Time 08/29/2016 11:17:12
--- NOTE | 2016-08-29 11:37 | HHI.PR ---
Neuropsych Emotional Emotional: UnabletoAssess: Emotional, Anxious/Fearful, Depressed/Sad, Hostile/ Resentful, Irritable/Angry/Frustrate, Labile, Constricted/Blunted Behavior Behavior: Unable to Asses: Behavior, Coping/Acceptance, Cooperative w/ Treatment, Motivation, Frustration Tolerance/[place], Impulsive/Agitated, Suicidal/ Homicidal Risk Cognitive Cognitive: Unable to Asses: Cognitive, Attention/Concentration, Confused/ Orientation, Insight/Awareness, Judgement/Problem-Solving, Memory Progress Notes/Response to Tx Contents of Sessions: Level of Consciousness Time with Patient: 15 minutes Premorbid psychological status Premorbid Cognitive, Emotional and Behavioral Status: Unable to Assess. The patient has no family present to discuss his baseline status. Behavioral Reactions of Patient and Family/Support System: Unable to Assess. No family present. Emotional/Behavioral Status of Patient and Family/Support System: Unable to Assess. Pertinent issues, if appropriate to this patients clinical care, are described in detail above. Maximizing acute care outcome It is recommended that the patient be monitored for emergent behavioral impulsivity as the medical condition evolves. This patients neuropathological challenges may limit their rehabilitation potential going forward, and these challenges will require specialized therapeutic skills to maximize outcome. Anticipated Problems Ongoing areas of concern will include behavioral impulsivity, lack of insight and judgment, which is expected to improve with time and treatment. Treatment Plan This clinician will continue to follow with you throughout the course of this patients rehabilitation treatment, and I will be available to meet with the patients family/support system to facilitate their understanding and the ongoing care of their family member. The goals of neuropsychological intervention shall be both educational and supportive to the family/support system as is deemed clinically appropriate. [facility] Level: III:Localized response-total assist Impression This patient has suffered a very severe traumatic brain injury with expected severe residual neurocognitive impairments. Diagnosis: (1) Major neurocognitive disorder as late effect of traumatic brain injury with behavioral disturbance Status: Acute Progress Note Narrative Ongoing follow-up of patient seen during daily trauma rounds. This is day 11 post injury.~ No neurological change, and he will need a trach/PEG. He remains sedated (propofol) and intubated.~ Report today is that he has pneuomonia. He does localize to pain.~ He will require terminal clerk placement. He is a [place]o III. I will continue to follow. Hector Garrett PhD August 29, 2016 11:37
[2016-08-29] MEDS ORDERED: MIDAZOLAM HCL 5 MG/ML VIAL (1 ML) ONE (12:42)
[2016-08-29] MEDS ORDERED: ROCURONIUM INJ 50 MG/5 ML VIAL ONE (12:42)
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
[2016-08-29] MEDS: ACETAMINOPHEN 325 MG TAB PO PRN (22:29)
[2016-08-30] VITALS (20 sets, daily range): BP systolic 94–128; BP diastolic 54–83; PULSE 87–106; RESP 18; TEMP 98.6–100; O2SAT 98–100
[2016-08-30] MEDS: CHLORHEXIDINE GLUCONATE 2 % 1 PACK (2 CLOTHS) TOP SCH (00:26)
[2016-08-30] MEDS: PIPERACIL-TAZO 4.5 GM PREMIX 100 ML IV SCH ×4 (01:03→20:24)
[2016-08-30 03:35] LABS: HEMATOCRIT 24.7 % (39.0-51.0); MEAN CELL VOLUME 83.6 FL (80.0-100.0); MEAN CORPUSCULAR HEMOGLOBIN 27.9 PG (27.0-34.0); MEAN CORPUSCULAR HGB CONC 33.3 % (32.0-36.0); PLATELET COUNT 733 TH/MM3 (150-450); RED BLOOD COUNT 2.95 MIL/MM3 (4.50-5.90); RED CELL DISTRIBUTION WIDTH 14.7 % (11.6-17.2); WHITE BLOOD COUNT 16.2 TH/MM3 (4.0-11.0)
[2016-08-30 03:37] LABS: HEMO FLAGS AUTO DIFF
[2016-08-30 03:50] LABS: ALT (GPT) 64 U/L (12-78); ANION GAP 7 MEQ/L (5-15); AST (GOT) 59 U/L (15-37); BICARBONATE 28.7 MEQ/L (21.0-32.0); BLOOD UREA NITROGEN 16 MG/DL (7-18); CHLORIDE 110 MEQ/L (98-107); GLOMERULAR FILTRATION RATE 127 ML/MIN (>89); MAGNESIUM 2.6 MG/DL (1.5-2.5); POTASSIUM 3.7 MEQ/L (3.5-5.1); SODIUM (NA) 146 MEQ/L (136-145)
[2016-08-30 03:52] LABS: ALKALINE PHOSPHATASE 214 U/L (45-117); TOTAL BILIRUBIN ADULT 0.7 MG/DL (0.2-1.0)
[2016-08-30 04:52] LABS: BLOOD GAS BASE EXCESS 2.2 mmol/L (-2-2); BLOOD GAS CARBOXYHEMOGLOBIN 0.9 % (0-4); BLOOD GAS HCO3 26 mmol/L (22-26); BLOOD GAS METHEMOGLOBIN 0.5 % (0-2); BLOOD GAS O2 HGB SATURATION 95 % (90-100); BLOOD GAS OXYGEN CONTENT 10.7 Vol % (12.0-20.0); BLOOD GAS PCO2 40 mmHg (38-42); BLOOD GAS PO2 93 mmHg (61-120); CRITICAL VALUE NO; OXYGEN DEVICE VENTILATOR; TEMP CORR TO 98.6
[2016-08-30 04:53] LABS: DRAW SITE LT FEMORAL; FIO2 35 %; NUMBER OF ARTERIAL PUNCTURES 1; STAT NO; VENT SETTINGS PRVC/AC
[2016-08-30 05:07] LABS: BANDS 15 % (0-6); EOSINOPHILS 3 % (0-4); NEUTROPHIL # MANUAL DIFF 13.6 TH/MM3 (1.8-7.7); PLATELET ESTIMATE SMEAR HIGH (NORMAL); PLATELET MORPHOLOGY NORMAL (NORMAL); POLYS (SEG NEUTROPHILS) 69 % (16-70); SCAN/DIFF FINAL DIFF MANUAL; WBC DIFF SAMPLE 100
[2016-08-30] MEDS: PROPOFOL 1000 MG/100 ML INJ 100 ML IV SCH ×3 (05:09→18:06)
[2016-08-30] MEDS: PANTOPRAZOLE SODIUM 40 MG VIAL IVP SCH (05:48)
--- NOTE | 2016-08-30 06:11 | RADRPT ---
EXAM DATE/TIME: 08/30/2016 05:07 [place] COMPARISON: CHEST SINGLE AP, August 28, 2016, 10:06. INDICATIONS : Short of breath. MEDICAL HISTORY : None. SURGICAL HISTORY : Craniotomy. ENCOUNTER: Subsequent ACUITY: 1 week PAIN SCORE: Non-responsive. LOCATION: Bilateral chest FINDINGS: A single portable frontal view of the chest shows the tip of the endotracheal tube 5 cm proximal to t he dylon. Nasogastric tube courses off the inferior margin of the film. Right-sided PICC line noted. Low lung volumes observed. Mild bibasilar atelectasis. No infiltrate or effusion. No pneumothorax. H eart is normal in size. CONCLUSION: Low lung volumes with mild bibasilar atelectasis. Jorge Gimenez Jr., MD on August 30, 2016 at 6:09 Board Certified Radiologist. This report was verified electronically.
[2016-08-30] MEDS: LACTULOSE SYRUP 20 GM/30 ML CUP PO SCH (09:00)
[2016-08-30] MEDS: MISCELLANEOUS NURSING INFORMATION SCH ×2 (09:00→20:23)
[2016-08-30] MEDS: DOCUSATE SODIUM 100 MG CAP PO SCH ×2 (09:19→20:23)
[2016-08-30] MEDS: CHLORHEXIDINE 0.12% (ORAL KIT) 15 ML CUP MT SCH ×2 (09:19→20:22)
[2016-08-30] MEDS: SODIUM CHLORIDE 0.9% FLUSH 5 ML FLUSH IVF SCH ×2 (09:20→20:23)
[2016-08-30] MEDS: ENOXAPARIN SODIUM 40 MG/0.4 ML SYRINGE SQ SCH (09:20)
[2016-08-30] MEDS: BACITRACIN TOP OINT 15 GM TUBE TOP SCH ×2 (09:20→20:26)
[2016-08-30] MEDS: 3% SALINE INJ 500 ML IV SCH (10:42)
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
[2016-08-30] MEDS ORDERED: LIDOCAINE 1%/EPINEPHrine 1:100,000 SOLN 20 ML VIAL ONE (12:15)
--- NOTE | 2016-08-30 15:44 | EKG ---
Date Performed: 08/29/2016 Time Performed: 22:50:20 PTAGE: 56 years EKG: Sinus rhythm with bigeminal PACs. Generalized low QRS voltages Compared to prior tracing no significant change Ab normal ECG NO PREVIOUS TRACING DOCTOR: Emil Vallejo Interpretating Date/Time 08/30/2016 15:43:21
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
[2016-08-30] MEDS: MAGNESIUM HYDROXIDE SUSP 30 ML CUP PO SCH (20:23)
[2016-08-31] VITALS (20 sets, daily range): BP systolic 116–149; BP diastolic 64–86; PULSE 80–115; RESP 16–19; TEMP 99.5–100.9; O2SAT 98–100
[2016-08-31] MEDS: PROPOFOL 1000 MG/100 ML INJ 100 ML IV SCH ×3 (00:34→11:14)
[2016-08-31] MEDS: 3% SALINE INJ 500 ML IV SCH ×2 (00:35→11:15)
[2016-08-31] MEDS: CHLORHEXIDINE GLUCONATE 2 % 1 PACK (2 CLOTHS) TOP SCH (00:55)
[2016-08-31] MEDS: PIPERACIL-TAZO 4.5 GM PREMIX 100 ML IV SCH ×4 (00:55→19:58)
[2016-08-31] MEDS: fentaNYL DRIP 250 ML IV SCH (03:33)
[2016-08-31 03:36] LABS: AUTOMATED NEUTROPHIL # 9.7 TH/MM3 (1.8-7.7); BASOPHIL # 0.1 TH/MM3 (0-0.2); BASOPHIL % 0.6 % (0.0-2.0); EOSINOPHIL # 0.5 TH/MM3 (0-0.4); HEMATOCRIT 25.1 % (39.0-51.0); HEMO FLAGS DIFF FINAL; LYMPH % 17.1 % (9.0-44.0); LYMPHOCYTE # 2.3 TH/MM3 (1.0-4.8); MEAN CELL VOLUME 84.8 FL (80.0-100.0); MEAN CORPUSCULAR HEMOGLOBIN 27.6 PG (27.0-34.0); MEAN CORPUSCULAR HGB CONC 32.5 % (32.0-36.0); MONO % 6.6 % (0.0-8.0); NEUT % 71.7 % (16.0-70.0); PLATELET COUNT 775 TH/MM3 (150-450); RED BLOOD COUNT 2.95 MIL/MM3 (4.50-5.90); RED CELL DISTRIBUTION WIDTH 14.6 % (11.6-17.2); WHITE BLOOD COUNT 13.5 TH/MM3 (4.0-11.0)
[2016-08-31 03:58] LABS: ALT (GPT) 70 U/L (12-78); ANION GAP 8 MEQ/L (5-15); AST (GOT) 61 U/L (15-37); BICARBONATE 28.7 MEQ/L (21.0-32.0); BLOOD UREA NITROGEN 16 MG/DL (7-18); CHLORIDE 110 MEQ/L (98-107); GLOMERULAR FILTRATION RATE 121 ML/MIN (>89); MAGNESIUM 2.6 MG/DL (1.5-2.5); POTASSIUM 3.5 MEQ/L (3.5-5.1); SODIUM (NA) 147 MEQ/L (136-145)
[2016-08-31 04:00] LABS: ALKALINE PHOSPHATASE 216 U/L (45-117); TOTAL BILIRUBIN ADULT 0.7 MG/DL (0.2-1.0)
--- NOTE | 2016-08-31 04:11 | RADRPT ---
EXAM DATE/TIME: 08/31/2016 03:19 [place] COMPARISON: CHEST SINGLE AP, August 30, 2016, 5:07. INDICATIONS : Shortness of breath. MEDICAL HISTORY : None. SURGICAL HISTORY : None. ENCOUNTER: Initial ACUITY: 1 day PAIN SCORE: 0/10 LOCATION: Bilateral chest FINDINGS: A single portable frontal view of the chest shows interval tracheostomy tube placement. Nasogastric t ube tip in the region of the body of the stomach. Right subclavian central line. Hypoinflation with m inimal bibasilar atelectasis. No infiltrate or effusion. Heart is normal in size. CONCLUSION: 1. Interval tracheostomy tube placement. 2. Hypoinflation with mild bibasilar atelectasis. Jorge Gimenez Jr., MD on August 31, 2016 at 4:09 Board Certified Radiologist. This report was verified electronically.
[2016-08-31] MEDS: POTASSIUM CHLOR 40 MEQ PREMIX 100 ML IV PRN (04:55)
[2016-08-31] MEDS: PANTOPRAZOLE SODIUM 40 MG VIAL IVP SCH (06:10)
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
[2016-08-31] MEDS: CHLORHEXIDINE 0.12% (ORAL KIT) 15 ML CUP MT SCH ×2 (08:58→19:58)
[2016-08-31] MEDS: DOCUSATE SODIUM 100 MG CAP PO SCH ×2 (08:58→19:59)
[2016-08-31] MEDS: BACITRACIN TOP OINT 15 GM TUBE TOP SCH ×2 (08:58→19:59)
[2016-08-31] MEDS: SODIUM CHLORIDE 0.9% FLUSH 5 ML FLUSH IVF SCH ×2 (08:58→19:59)
[2016-08-31] MEDS: LACTULOSE SYRUP 20 GM/30 ML CUP PO SCH (08:58)
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
[2016-08-31] MEDS: MISCELLANEOUS NURSING INFORMATION SCH ×2 (09:00→19:59)
[2016-08-31] MEDS: ENOXAPARIN SODIUM 40 MG/0.4 ML SYRINGE SQ SCH (11:00)
--- NOTE | 2016-08-31 11:02 | HHI.PR ---
Neuropsych Emotional Emotional: UnabletoAssess: Emotional, Anxious/Fearful, Depressed/Sad, Hostile/ Resentful, Irritable/Angry/Frustrate, Labile, Constricted/Blunted Behavior Behavior: Unable to Asses: Behavior, Coping/Acceptance, Cooperative w/ Treatment, Motivation, Frustration Tolerance/[place], Impulsive/Agitated, Suicidal/ Homicidal Risk Cognitive Cognitive: Unable to Asses: Cognitive, Attention/Concentration, Confused/ Orientation, Insight/Awareness, Judgement/Problem-Solving, Memory Psychosocial Psychosocial: Unable to Asses: Psychosocial, Family/Other Adjustment, Realistic Expectation, Self-Esteem/Confidence Progress Notes/Response to Tx Contents of Sessions: Level of Consciousness Time with Patient: 15 minutes Premorbid psychological status Premorbid Cognitive, Emotional and Behavioral Status: Unable to Assess. The patient has no family present to discuss his baseline status. Behavioral Reactions of Patient and Family/Support System: Unable to Assess. No family present. Emotional/Behavioral Status of Patient and Family/Support System: Unable to Assess. Pertinent issues, if appropriate to this patients clinical care, are described in detail above. Maximizing acute care outcome It is recommended that the patient be monitored for emergent behavioral impulsivity as the medical condition evolves. This patients neuropathological challenges may limit their rehabilitation potential going forward, and these challenges will require specialized therapeutic skills to maximize outcome. Anticipated Problems Ongoing areas of concern will include behavioral impulsivity, lack of insight and judgment, which is expected to improve with time and treatment. Treatment Plan This clinician will continue to follow with you throughout the course of this patients rehabilitation treatment, and I will be available to meet with the patients family/support system to facilitate their understanding and the ongoing care of their family member. The goals of neuropsychological intervention shall be both educational and supportive to the family/support system as is deemed clinically appropriate. [facility] Level: III:Localized response-total assist Impression This patient has suffered a very severe traumatic brain injury with expected severe residual neurocognitive impairments. Diagnosis: (1) Major neurocognitive disorder as late effect of traumatic brain injury with behavioral disturbance Status: Acute Progress Note Narrative Ongoing follow-up of patient seen during daily trauma rounds. This is day 13 post injury. There have been no neuro changes since yesterday, with the plan to wean sedation once trached. His heart rate apparently increases with sedation vacation, and hence trauma team consensus is to start propranolol 10 q8H. This patient is a potential Amantadine candidate, but must be off sedation and analgesia medications, and goal is to decrease Fentanyl by 50 per day and response with additional sedation vacations. Presently he is a [place] III. I will continue to follow. Hector Garrett PhD August 31, 2016 11:02
[2016-08-31] MEDS ORDERED: PROPOFOL 200 MG/20 ML AMP IV ONE (11:47)
--- NOTE | 2016-08-31 11:51 | GIPROC ---
[facility] [address] [facility]. [facility], [id number] EGD WITH PEG PROCEDURE REPORT EXAM DATE: 08/31/2016 PATIENT NAME: Rashid Hatch MR#: [id number] BIRTHDATE: 1960 ATTENDING: Marva Gallego MD ORDER #: [id number] COCOA ROASTER: Bautista Ivy and Aurelia Zhu STATUS: inpatient INDICATIONS: The patient is a 56 yr old male here for an EGD with PEG due to dysphagia PROCEDURE PERFORMED: EGD with PEG placement MEDICATIONS: Per Anesthesia and None. TOPICAL ANESTHETIC: CONSENT: The patient understands the risks and benefits of the procedure and understands that these risks include, but are not limited to: sedation, allergic reaction, infection, perforation and/or bleeding. Alternative means of evaluation and treatment include, among others: physical exam, x-rays, and/or surgical intervention. The patient elects to proceed with this endoscopic procedure. medical equipment was checked for proper function. Hand hygiene and appropriate measures for infection prevention was taken. After the risks, benefits and alternatives of the procedure were thoroughly explained, Informed consent was verified, confirmed and timeout was successfully executed by the treatment team. The patient was anesthetized with topical anesthesia and the Pentax [id number] endoscope was introduced through the mouth and advanced to the second portion of the duodenum. The instrument was slowly withdrawn as the mucosa was fully examined. The upper, middle, and distal third of the esophagus were carefully inspected and no abnormalities were noted. The z-line was well seen at the GEJ. The endoscope was pushed into the fundus which was normal including a retroflexed view. The antrum, first and second part of the duodenum were unremarkable. The stomach was then inflated with air, and by a combination of transillumination and manual palpation, the site for the gastrostomy tube placement was selected and marked on the anterior abdominal wall. The skin of the anterior abdomen was surgically prepped and draped with sterile towels. Utilizing strict sterile technique, the selected site was then anesthetized with 1% xylocaine by injection into the skin and subcutaneous tissue. A 1 cm incision was made through the skin and subcutaneous tissue, and the needle/cannula assembly was then passed through the abdominal wall and through the anterior wall of the stomach, maintaining visualization with the endoscope. A snare device previously placed through the instrument channel was then opened and placed around the cannula, the needle was removed, and the insertion wire was passed through the cannula and into the stomach lumen. The snare was then loosened from the cannula, and repositioned to snare the insertion wire. The snare was then pulled up to the endoscope distal tip, and the scope was then withdrawn bringing with it the snare and insertion wire. The insertion wire was then released from the snare, and then loop-attached to the gastrostomy tube. Using the "pull technique", the G-tube was then pulled into place by traction on the insertion wire at the abdominal wall end. The G-tube insertion site was then cleansed once again, and the external bolster was placed over the tube to secure it to the abdominal wall. A sterile dressing was then applied, and the procedure terminated. no abnormalities The gastroscope was then slowly withdrawn and removed. ADVERSE EVENT: There were no complications. IMPRESSIONS: 1. The upper, middle, and distal third of the esophagus were carefully inspected and no abnormalities were noted. The z-line was well seen at the GEJ. The endoscope was pushed into the fundus which was normal including a retroflexed view. The antrum, first and second part of the duodenum were unremarkable. 2. No abnormalities 3. Status post percutaneous endoscopic gastrostomy RECOMMENDATIONS: 1. Anti-reflux regimen 2. Continue PPI 3. ok to use peg for medications only today 4.strat tf in am REPEAT EXAM: Marva Gallego MD eSigned: Marva Gallego MD 08/31/2016 11:50 AM cc: PATIENT NAME: Rashid Hatch MR#: [id number]
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
[2016-08-31] MEDS: PROPRANOLOL HCL 10 MG TAB PO SCH ×2 (13:26→22:17)
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
[2016-08-31] MEDS: ACETAMINOPHEN 325 MG TAB PO PRN (16:56)
[2016-08-31] MEDS: MAGNESIUM HYDROXIDE SUSP 30 ML CUP PO SCH (19:59)
[2016-09-01] VITALS (19 sets, daily range): BP systolic 110–144; BP diastolic 64–82; PULSE 70–92; RESP 12–17; TEMP 97.7–99.9; O2SAT 94–100
[2016-09-01] MEDS: PIPERACIL-TAZO 4.5 GM PREMIX 100 ML IV SCH ×4 (01:45→20:00)
[2016-09-01] MEDS: CHLORHEXIDINE GLUCONATE 2 % 1 PACK (2 CLOTHS) TOP SCH (04:17)
[2016-09-01 04:52] LABS: AUTOMATED NEUTROPHIL # 10.5 TH/MM3 (1.8-7.7); BASOPHIL # 0.1 TH/MM3 (0-0.2); BASOPHIL % 0.8 % (0.0-2.0); EOSINOPHIL # 0.2 TH/MM3 (0-0.4); EOSINOPHIL % 1.4 % (0.0-4.0); HEMATOCRIT 24.7 % (39.0-51.0); HEMO FLAGS DIFF FINAL; LYMPH % 11.3 % (9.0-44.0); LYMPHOCYTE # 1.5 TH/MM3 (1.0-4.8); MEAN CELL VOLUME 84.1 FL (80.0-100.0); MEAN CORPUSCULAR HEMOGLOBIN 27.6 PG (27.0-34.0); MEAN CORPUSCULAR HGB CONC 32.8 % (32.0-36.0); MONO % 6.5 % (0.0-8.0); PLATELET COUNT 852 TH/MM3 (150-450); RED BLOOD COUNT 2.93 MIL/MM3 (4.50-5.90); RED CELL DISTRIBUTION WIDTH 14.7 % (11.6-17.2); WHITE BLOOD COUNT 13.1 TH/MM3 (4.0-11.0)
[2016-09-01 04:53] LABS: ALKALINE PHOSPHATASE 248 U/L (45-117); ALT (GPT) 65 U/L (12-78); ANION GAP 9 MEQ/L (5-15); AST (GOT) 48 U/L (15-37); BICARBONATE 26.6 MEQ/L (21.0-32.0); BLOOD UREA NITROGEN 13 MG/DL (7-18); CHLORIDE 108 MEQ/L (98-107); GLOMERULAR FILTRATION RATE 137 ML/MIN (>89); MAGNESIUM 2.7 MG/DL (1.5-2.5); POTASSIUM 3.6 MEQ/L (3.5-5.1); SODIUM (NA) 144 MEQ/L (136-145); TOTAL BILIRUBIN ADULT 0.8 MG/DL (0.2-1.0)
[2016-09-01] MEDS: PROPRANOLOL HCL 10 MG TAB PO SCH ×3 (05:41→21:30)
[2016-09-01] MEDS: PANTOPRAZOLE SODIUM 40 MG VIAL IVP SCH (06:04)
--- NOTE | 2016-09-01 06:10 | RADRPT ---
EXAM DATE/TIME: 09/01/2016 05:27 [facility] COMPARISON: CHEST SINGLE AP, August 31, 2016, 3:19. INDICATIONS : Short of breath. MEDICAL HISTORY : None. SURGICAL HISTORY : None. ENCOUNTER: Subsequent ACUITY: 2 weeks PAIN SCORE: Non-responsive. LOCATION: Bilateral chest FINDINGS: A single portable frontal view the chest shows worsening consolidation in the left lung base. Questio nable tiny left effusion. Right lung is clear with exception of minimal atelectasis within the base. Tracheostomy tube. Heart is normal in size. CONCLUSION: 1. Worsening consolidation of the left lung base with tiny left effusion. 2. Stable mild right basilar atelectasis. Jorge Gimenez Jr., MD on September 01, 2016 at 6:08 Board Certified Radiologist. This report was verified electronically.
[2016-09-01] MEDS: MISCELLANEOUS NURSING INFORMATION SCH ×2 (09:00→20:00)
[2016-09-01] MEDS: SODIUM CHLORIDE 0.9% FLUSH 5 ML FLUSH IVF SCH ×2 (09:00→20:01)
--- NOTE | 2016-09-01 09:02 | RADRPT ---
EXAM DATE/TIME: 09/01/2016 08:11 [facility] COMPARISON: TIBIA/FIBULA LEFT (AP/LAT), August 19, 2016, 10:24. INDICATIONS : Evaluate left ankle fracture. MEDICAL HISTORY : None. SURGICAL HISTORY : ORIF left leg. ENCOUNTER: Subsequent ACUITY: 2 weeks PAIN SCORE: Non-responsive. LOCATION: Left lower leg. FINDINGS: Comparison August 19. Alignment at the distal fibular shaft fracture has improved. Fracture is just ab ove the proximal plate and screw fixation. There is periosteal reaction along the fibular shaft. Ther e is previous intramedullary dennis and screw fixation of distal tibial fracture. Fracture lines remain visible with evidence for early callus formation at the fractures. Normal alignment at the ankle join t. CONCLUSION: 1. Postoperative dennis and screw fixation across distal tibial shaft fracture with early callus formati on. Minimal residual displacement. 2. Early callus formation noted at distal fibular shaft fracture with surrounding periosteal reaction . Plate and screw fixation distal fibula below fracture site. Overlying cast. Chon Callejas MD on September 01, 2016 at 8:51 Board Certified Radiologist. This report was verified electronically.
[2016-09-01] MEDS: LACTULOSE SYRUP 20 GM/30 ML CUP PO SCH (09:09)
[2016-09-01] MEDS: DOCUSATE SODIUM 100 MG CAP PO SCH ×2 (09:09→20:01)
[2016-09-01] MEDS: CHLORHEXIDINE 0.12% (ORAL KIT) 15 ML CUP MT SCH ×2 (09:10→20:00)
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
[2016-09-01] MEDS: BACITRACIN TOP OINT 15 GM TUBE TOP SCH ×2 (09:11→20:01)
[2016-09-01] MEDS: 3% SALINE INJ 500 ML IV SCH (09:35)
--- NOTE | 2016-09-01 10:08 | MP ---
cc: MOOK MCMAHAN DATE OF SURGERY 08/30/2016 PREOPERATIVE DIAGNOSES Respiratory failure. Traumatic brain injury. POSTOPERATIVE DIAGNOSES Respiratory failure. Traumatic brain injury. OPERATIVE PROCEDURE Tracheostomy, Blue Rhino. SURGEON MD Sachin ANESTHESIA General and 1% Xylocaine. ESTIMATED BLOOD LOSS 5 cc. PROCEDURE The patient was prepped and draped in the usual fashion. The pretracheal space was infiltrated with 1% Xylocaine, a small incision made vertically just above the sternum, deepened down with a hemostat, tissues retracted laterally. The thyroid isthmus is pretty meaty and this one is divided over the right angle with cautery and then the trachea is exposed. The level of the second to third tracheal ring is selected by palpation and then Angiocath this pierced into the trachea while following the procedure with bronchoscopy. Through the Angiocath the guidewire was inserted and then over the guidewire the punch dilator, followed by the Blue Rhino dilator placed. After that an 8 Shiley cannula is placed and sutured to the skin with 2-0 Prolene. The cannula was connected to the ventilator, end-tidal CO2 checked and respiration resumed. Dressing applied. The patient tolerated the procedure well. Mook Mcmahan SJ/SSB /4:23 PM /9:55 AM
[2016-09-01] MEDS: ENOXAPARIN SODIUM 40 MG/0.4 ML SYRINGE SQ SCH (11:11)
[2016-09-01] MEDS ORDERED: LORazepam 2 MG/ML VIAL IV PRN (11:15)
--- NOTE | 2016-09-01 11:17 | HHI.PR ---
Neuropsych Emotional Emotional: UnabletoAssess: Emotional, Anxious/Fearful, Depressed/Sad, Hostile/ Resentful, Irritable/Angry/Frustrate, Labile, Constricted/Blunted Behavior Behavior: Unable to Asses: Behavior, Coping/Acceptance, Cooperative w/ Treatment, Motivation, Frustration Tolerance/[place], Impulsive/Agitated, Suicidal/ Homicidal Risk Cognitive Cognitive: Unable to Asses: Cognitive, Attention/Concentration, Confused/ Orientation, Insight/Awareness, Judgement/Problem-Solving, Memory Psychosocial Psychosocial: Unable to Asses: Psychosocial, Family/Other Adjustment, Realistic Expectation, Self-Esteem/Confidence Progress Notes/Response to Tx Time with Patient: 15 minutes Premorbid psychological status Premorbid Cognitive, Emotional and Behavioral Status: Unable to Assess. The patient has no family present to discuss his baseline status. Behavioral Reactions of Patient and Family/Support System: Unable to Assess. No family present. Emotional/Behavioral Status of Patient and Family/Support System: Unable to Assess. Pertinent issues, if appropriate to this patients clinical care, are described in detail above. Maximizing acute care outcome It is recommended that the patient be monitored for emergent behavioral impulsivity as the medical condition evolves. This patients neuropathological challenges may limit their rehabilitation potential going forward, and these challenges will require specialized therapeutic skills to maximize outcome. Anticipated Problems Ongoing areas of concern will include behavioral impulsivity, lack of insight and judgment, which is expected to improve with time and treatment. Treatment Plan This clinician will continue to follow with you throughout the course of this patients rehabilitation treatment, and I will be available to meet with the patients family/support system to facilitate their understanding and the ongoing care of their family member. The goals of neuropsychological intervention shall be both educational and supportive to the family/support system as is deemed clinically appropriate. [facility] Level: III:Localized response-total assist Impression This patient has suffered a very severe traumatic brain injury with expected severe residual neurocognitive impairments. Diagnosis: (1) Major neurocognitive disorder as late effect of traumatic brain injury with behavioral disturbance Status: Acute Progress Note Narrative Ongoing follow-up of patient seen during daily trauma rounds. This is day 14 post injury. The patient has had no neurological changes in the past 24 hours, with the goal of weaning sedation/fentanyl. He reportedly withdraws with his upper extremities. He is prescribed propranolol 10 q8H, and has an order for Ativan 1mg q8H PRN. Depending on how and if he wakes up off sedation, Dr. Kebede is considering instituting Amantadine. The patient is a [place] III presently. I will continue to follow. Hector Garrett PhD September 01, 2016 11:16
[2016-09-01] MEDS ORDERED: fentaNYL CITRATE 250 MCG/5 ML AMP IV PUSH PRN (14:00)
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
--- NOTE | 2016-09-01 16:46 | HHI.GIFU ---
Subjective Remarks Resting in bed. No distress. Sedated on vent. TF ordered, but not started yet. (Ella Ratliff) Objective Vitals I&O Vital Signs Date Time Temp Pulse Resp B/P Pulse Ox O2 Delivery O2 Flow Rate FiO2 09/01/16 15:51 100 30 09/01/16 14:00 86 09/01/16 12:00 97.7 85 15 134/82 99 09/01/16 12:00 85 09/01/16 12:00 30 09/01/16 11:39 98 30 09/01/16 10:00 80 09/01/16 08:02 100 30 09/01/16 08:00 70 09/01/16 08:00 98.8 70 13 110/64 100 09/01/16 08:00 30 09/01/16 07:00 100 Mechanical Ventilator 30 Trach Collar 09/01/16 06:41 12 09/01/16 06:00 77 09/01/16 04:00 30 09/01/16 04:00 99.1 82 13 111/67 100 09/01/16 04:00 82 09/01/16 03:38 100 30 09/01/16 02:00 82 09/01/16 00:32 100 30 09/01/16 00:00 30 09/01/16 00:00 99.9 76 12 144/80 100 09/01/16 00:00 76 08/31/16 22:00 80 08/31/16 20:00 99.9 96 16 145/80 100 08/31/16 20:00 30 08/31/16 20:00 93 08/31/16 19:37 100 30 08/31/16 19:00 100 Mechanical Ventilator 30 Trach Collar 08/31/16 18:00 97 I/O 08/31/16 08/31/16 08/31/16 09/01/16 09/01/16 09/01/16 07:00 15:00 23:00 07:00 15:00 23:00 Intake Total 638 ml 977 ml 560 ml 314 ml 669 ml Output Total 750 ml 1616 ml 1175 ml 1450 ml 550 ml Balance -112 ml -639 ml -615 ml -1136 ml 119 ml Intake IV Total 638 ml 977 ml 460 ml 314 ml 589 ml Tube Feeding 0 ml 80 ml Other 100 ml Output Urine Total 750 ml 1550 ml 1175 ml 1250 ml 550 ml Stool Total 0 ml 66 ml 200 ml Laboratory Laboratory Tests Test 08/31/16 08/31/16 09/01/16 09/01/16 16:54 19:54 01:10 04:00 Sodium Level 157 144 Serum Osmolality 318 Urine Specific [place] 1.015 Urine Osmolality 565 Urine Random Sodium 175 207 White Blood Count 13.1 Red Blood Count 2.93 Hemoglobin 8.1 Hematocrit 24.7 Mean Corpuscular Volume 84.1 Mean Corpuscular Hemoglobin 27.6 Mean Corpuscular Hemoglobin 32.8 Concent Red Cell Distribution Width 14.7 Platelet Count 852 Mean Platelet Volume 7.7 Neutrophils (%) (Auto) 80.0 Lymphocytes (%) (Auto) 11.3 Monocytes (%) (Auto) 6.5 Eosinophils (%) (Auto) 1.4 Basophils (%) (Auto) 0.8 Neutrophils # (Auto) 10.5 Lymphocytes # (Auto) 1.5 Monocytes # (Auto) 0.9 Eosinophils # (Auto) 0.2 Basophils # (Auto) 0.1 CBC Comment DIFF FINAL Differential Comment Potassium Level 3.6 Chloride Level 108 Carbon Dioxide Level 26.6 Anion Gap 9 Blood Urea Nitrogen 13 Creatinine 0.61 Estimat Glomerular Filtration 137 Rate Random Glucose 99 Calcium Level 8.9 Phosphorus Level 3.6 Magnesium Level 2.7 Total Bilirubin 0.8 Aspartate Amino Transf 48 (AST/SGOT) Alanine Aminotransferase 65 (ALT/SGPT) Alkaline Phosphatase 248 Total Protein 6.2 Albumin 1.9 Test 09/01/16 06:26 Urine Random Sodium 198 Imaging Last Impressions Chest X-Ray 09/01/16 0600 Signed Impressions: Service Date/Time: August 05:27 - CONCLUSION: 1. Worsening consolidation of the left lung base with tiny left effusion. 2. Stable mild right basilar atelectasis. Jorge Gimenez Jr., MD Ankle X-Ray 09/01/16 0000 Signed Impressions: Service Date/Time: August 08:11 - CONCLUSION: 1. Postoperative dennis and screw fixation across distal tibial shaft fracture with early callus formation. Minimal residual displacement. 2. Early callus formation noted at distal fibular shaft fracture with surrounding periosteal reaction. Plate and screw fixation distal fibula below fracture site. Overlying cast. Chon Callejas MD Head CT 08/25/16 0600 Signed Impressions: Service Date/Time: August 04:13 - CONCLUSION: 1. Evolving contusions. No acute hemorrhage is identified 2. Extensive sinus disease Karsten Holland MD Tibia/Fibula X-Ray 08/19/16 0000 Signed Impressions: Service Date/Time: Friday, August 19, 2016 10:24 - CONCLUSION: Status post open ridgid internal fixation. Darren Watkins MD Pelvis X-Ray 08/18/16 0612 Signed Impressions: Service Date/Time: July 05:47 - CONCLUSION: The bony structures are grossly intact. A CT scan will be performed for further evaluation. Corky Meng MD Maxillofacial CT 08/18/16 0602 Signed Impressions: Service Date/Time: July 06:11 - CONCLUSION: 1. Multiple bilateral facial fractures as described above. 2. Bilateral zygomatic arch fractures. 3. Bilateral skull fractures. Corky Meng MD Chest CT 08/18/16 0554 Signed Impressions: Service Date/Time: July 06:20 - CONCLUSION: 1. No acute intrathoracic disease. 2. Multiple comminuted fractures involving both scapula Corky Meng MD Cervical Spine CT 08/18/16 0554 Signed Impressions: Service Date/Time: July 06:11 - CONCLUSION: 1. No acute bony fracture. 2. Primary degenerative changes involving the cervical spine. Corky Meng MD Abdomen/Pelvis CT 08/18/16 0554 Signed Impressions: Service Date/Time: July 06:20 - CONCLUSION: 1. Small focal area of decreased density in the left lobe liver suggestive of a focal contusion. 2. Focal hematoma of the right adrenal gland measuring 3.2 x 1.2 cm. 3. Focal infarction involving the upper pole the right kidney. 4. Nondisplaced fracture involving the right transverse process of L4. 5. Fractures involving the left ischium and left inferior pubic ramus. Corky Meng MD Thoracic Spine CT 08/18/16 0000 Signed Impressions: Service Date/Time: July 06:20 - CONCLUSION: 1. Mild compression fracture of the T4 vertebral body. 2. There is mild height loss also present at T3, T8 and, and T9 without a definite acute fracture line visualized. Therefore, these are of uncertain chronicity. 3. Please refer to chest, abdomen, and pelvis CT report for the description of the paraspinal findings. Abdullahi De MD Lumbar Spine CT 08/18/16 0000 Signed Impressions: Service Date/Time: July 06:20 - CONCLUSION: 1. There is a nondisplaced right L4 transverse process fracture. 2. No other acute finding is identified. Abdullahi De MD Knee X-Ray 08/18/16 0000 Signed Impressions: Service Date/Time: July 08:42 - CONCLUSION: 1. No acute fracture or malalignment. 2. Joint effusion. Darren Watkins MD Physical Exam HEENT: Incision lines to scalp well approximated with aakash CHEST: CTA, diminished CARDIAC: RRR ABDOMEN: Soft, nondistended, no hepatosplenomegaly; bowel sounds are present in all four quadrants. PEG tube site without redness or swelling EXTREMITIES: LLE Splint reji wrap drsg d/i, Edema to BLE. 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 Trauma alert for [facility] [place] (08/18/16)----> Severe TBI with left epidural hemorrhage along with bilateral moderately depressed temporal skull fractures and a small few millimeters fixed right sided SDH and frontal and temporal lobe contusions (S/P left frontoparietal craniotomy for epidural hemorrhage evacuation, left frontotemporal craniotomy for elevation fixation of depressed skull fractures, repair of traumatic dural injury with CSF leak using synthetic patch graft, and right frontocraniotomy for elevation of depressed skull fracture on 08/23/16), extensive facial fractures with depressed orbital fracture due to fracture of the orbital floor i.e. the top of maxillary sinus, liver contusion, right adrenal gland and right renal upper pole contusion with bleeding, left ischium and left pubic ramus fractures, and comminuted distal left tibia fibula fracture. S/P Tracheostomy. S/P EGD with peg tube placement (08/31/16)-----> 1. The upper, middle, and distal third of the esophagus were carefully inspected and no abnormalities were noted. The z-line was well seen at the GEJ. The endoscope was pushed into the fundus which was normal including a retroflexed view. The antrum, first and second part of the duodenum were unremarkable. 2. No abnormalities 3. Status post percutaneous endoscopic gastrostomy. Infrastructure Solutions Architect recommends Vital 1.5 at 60cc/hr as recommended by the it network administrator. Site without redness or swelling, scant amount of old blood. PLAN: - S/P EGD with peg tube placement - Vital 1.5 at 60cc/hr - GI will sign off, please reconsult as needed - Pt seen and examined by Dr. Sifuentes and myself and this note is written on his behalf (Ella Ratliff) Ella Ratliff September 01, 2016 16:46 Marva Gallego MD September 01, 2016 19:01
[2016-09-01] MEDS: ACETAMINOPHEN 325 MG TAB PO PRN (18:21)
[2016-09-01] MEDS: MAGNESIUM HYDROXIDE SUSP 30 ML CUP PO SCH (20:01)
[2016-09-02] VITALS (19 sets, daily range): BP systolic 127–168; BP diastolic 79–101; PULSE 75–107; RESP 20–27; TEMP 99.3–100.4; O2SAT 97–100
[2016-09-02] MEDS: ACETAMINOPHEN 325 MG TAB PO PRN ×2 (00:21→08:42)
[2016-09-02] MEDS: PIPERACIL-TAZO 4.5 GM PREMIX 100 ML IV SCH ×4 (01:43→19:59)
[2016-09-02] MEDS: CHLORHEXIDINE GLUCONATE 2 % 1 PACK (2 CLOTHS) TOP SCH (03:57)
[2016-09-02 04:21] LABS: AUTOMATED NEUTROPHIL # 10.2 TH/MM3 (1.8-7.7); BASOPHIL # 0.1 TH/MM3 (0-0.2); BASOPHIL % 1.1 % (0.0-2.0); EOSINOPHIL # 0.3 TH/MM3 (0-0.4); HEMATOCRIT 24.3 % (39.0-51.0); HEMO FLAGS DIFF FINAL; LYMPH % 11.5 % (9.0-44.0); LYMPHOCYTE # 1.5 TH/MM3 (1.0-4.8); MEAN CORPUSCULAR HEMOGLOBIN 27.2 PG (27.0-34.0); MEAN CORPUSCULAR HGB CONC 32.3 % (32.0-36.0); NEUT % 78.4 % (16.0-70.0); PLATELET COUNT 941 TH/MM3 (150-450); RED CELL DISTRIBUTION WIDTH 14.1 % (11.6-17.2)
[2016-09-02 04:33] LABS: ALT (GPT) 83 U/L (12-78); ANION GAP 7 MEQ/L (5-15); AST (GOT) 71 U/L (15-37); BICARBONATE 27.7 MEQ/L (21.0-32.0); BLOOD UREA NITROGEN 16 MG/DL (7-18); CHLORIDE 110 MEQ/L (98-107); GLOMERULAR FILTRATION RATE 132 ML/MIN (>89); MAGNESIUM 2.6 MG/DL (1.5-2.5); POTASSIUM 3.2 MEQ/L (3.5-5.1); SODIUM (NA) 145 MEQ/L (136-145)
[2016-09-02 04:35] LABS: ALKALINE PHOSPHATASE 268 U/L (45-117); TOTAL BILIRUBIN ADULT 0.6 MG/DL (0.2-1.0)
[2016-09-02] MEDS: POTASSIUM CHLOR 40 MEQ PREMIX 100 ML IV PRN ×2 (04:38→05:57)
[2016-09-02] MEDS: PROPRANOLOL HCL 10 MG TAB PO SCH ×3 (05:11→21:43)
--- NOTE | 2016-09-02 05:43 | RADRPT ---
EXAM DATE/TIME: 09/02/2016 04:40 [facility] COMPARISON: CHEST SINGLE AP, September 01, 2016, 5:27. INDICATIONS : Shortness of breath. MEDICAL HISTORY : None. SURGICAL HISTORY : None. ENCOUNTER: Subsequent ACUITY: 2 weeks PAIN SCORE: Non-responsive. LOCATION: Bilateral chest FINDINGS: The support devices remain in place. There is a stable infiltrate in the left lung base suggestive of atelectasis. The right lung is grossly clear. There are no pleural effusions. The heart size is stab le. CONCLUSION: Stable infiltrate left lung base. Otherwise no significant interval change. Corky Meng MD on September 02, 2016 at 5:41 Board Certified Radiologist. This report was verified electronically.
[2016-09-02] MEDS: 3% SALINE INJ 500 ML IV SCH (05:58)
[2016-09-02] MEDS: PANTOPRAZOLE SODIUM 40 MG VIAL IVP SCH (06:04)
[2016-09-02] MEDS: SODIUM CHLORIDE 0.9% FLUSH 5 ML FLUSH IVF SCH ×2 (07:36→20:44)
[2016-09-02] MEDS: MISCELLANEOUS NURSING INFORMATION SCH ×2 (08:41→21:00)
[2016-09-02] MEDS: CHLORHEXIDINE 0.12% (ORAL KIT) 15 ML CUP MT SCH ×2 (08:41→19:59)
[2016-09-02] MEDS: BACITRACIN TOP OINT 15 GM TUBE TOP SCH ×2 (08:42→20:44)
[2016-09-02] MEDS: LACTULOSE SYRUP 20 GM/30 ML CUP PO SCH (08:42)
[2016-09-02] MEDS: DOCUSATE SODIUM 100 MG CAP PO SCH ×2 (08:42→20:44)
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
[2016-09-02] MEDS: ENOXAPARIN SODIUM 40 MG/0.4 ML SYRINGE SQ SCH (11:19)
--- NOTE | 2016-09-02 11:59 | HHI.PR ---
Neuropsych Emotional Emotional: UnabletoAssess: Emotional, Anxious/Fearful, Depressed/Sad, Hostile/ Resentful, Irritable/Angry/Frustrate, Labile, Constricted/Blunted Behavior Behavior: Unable to Asses: Behavior, Coping/Acceptance, Cooperative w/ Treatment, Motivation, Frustration Tolerance/[place], Impulsive/Agitated, Suicidal/ Homicidal Risk Cognitive Cognitive: Unable to Asses: Cognitive, Attention/Concentration, Confused/ Orientation, Insight/Awareness, Judgement/Problem-Solving, Memory Psychosocial Psychosocial: Unable to Asses: Psychosocial, Family/Other Adjustment, Realistic Expectation, Self-Esteem/Confidence Progress Notes/Response to Tx Contents of Sessions: Level of Consciousness Time with Patient: 30 minutes Premorbid psychological status Premorbid Cognitive, Emotional and Behavioral Status: Unable to Assess. The patient has no family present to discuss his baseline status. Behavioral Reactions of Patient and Family/Support System: Unable to Assess. No family present. Emotional/Behavioral Status of Patient and Family/Support System: Unable to Assess. Pertinent issues, if appropriate to this patients clinical care, are described in detail above. Maximizing acute care outcome It is recommended that the patient be monitored for emergent behavioral impulsivity as the medical condition evolves. This patients neuropathological challenges may limit their rehabilitation potential going forward, and these challenges will require specialized therapeutic skills to maximize outcome. Anticipated Problems Ongoing areas of concern will include behavioral impulsivity, lack of insight and judgment, which is expected to improve with time and treatment. Treatment Plan This clinician will continue to follow with you throughout the course of this patients rehabilitation treatment, and I will be available to meet with the patients family/support system to facilitate their understanding and the ongoing care of their family member. The goals of neuropsychological intervention shall be both educational and supportive to the family/support system as is deemed clinically appropriate. [facility] Level: III:Localized response-total assist Impression This patient has suffered a very severe traumatic brain injury with expected severe residual neurocognitive impairments. Diagnosis: (1) Major neurocognitive disorder as late effect of traumatic brain injury with behavioral disturbance Status: Acute Progress Note Narrative Ongoing follow-up of patient seen during daily trauma rounds. This is day 15 post injury. He has demonstrated no neurological changes and remains generally unresponsive at a Rancho III. His sedation and Fentanyl has been d/c'ed, his Na = 144 and his white count has bee 13.1. He remains on propranolol 10 q8H, and is on pain medications. Trauma team consensus is to consult Dr. Kebede concerning starting Amantadine as a neurostimulant medication, which I did following trauma rounds. I will continue to follow. Hector Garrett PhD September 02, 2016 11:59
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
[2016-09-02] MEDS: MAGNESIUM HYDROXIDE SUSP 30 ML CUP PO SCH (20:44)
[2016-09-03] VITALS (18 sets, daily range): BP systolic 113–134; BP diastolic 57–81; PULSE 82–113; RESP 20–25; TEMP 99.7–100.4; O2SAT 33–100
[2016-09-03] MEDS: PIPERACIL-TAZO 4.5 GM PREMIX 100 ML IV SCH ×4 (00:28→20:26)
[2016-09-03] MEDS: CHLORHEXIDINE GLUCONATE 2 % 1 PACK (2 CLOTHS) TOP SCH (04:00)
[2016-09-03] MEDS: PROPRANOLOL HCL 10 MG TAB PO SCH ×3 (05:04→21:48)
--- NOTE | 2016-09-03 05:50 | RADRPT ---
EXAM DATE/TIME: 09/03/2016 04:46 [facility] COMPARISON: CHEST SINGLE AP, September 02, 2016, 4:40. INDICATIONS : Shortness of breath. MEDICAL HISTORY : None. SURGICAL HISTORY : None. ENCOUNTER: Subsequent ACUITY: 2 weeks PAIN SCORE: Non-responsive. LOCATION: Bilateral chest FINDINGS: Tracheostomy tube remains in place. There is no evidence of pneumothorax. There is mild bibasilar ate lectasis. No definite new infiltrates are seen. The heart size is stable. CONCLUSION: Mild bibasilar atelectasis. Corky Meng MD on September 03, 2016 at 5:48 Board Certified Radiologist. This report was verified electronically.
[2016-09-03] MEDS: PANTOPRAZOLE SODIUM 40 MG VIAL IVP SCH (05:54)
[2016-09-03 06:00] LABS: AUTOMATED NEUTROPHIL # 9.3 TH/MM3 (1.8-7.7); BASOPHIL # 0.2 TH/MM3 (0-0.2); BASOPHIL % 1.3 % (0.0-2.0); EOSINOPHIL # 0.2 TH/MM3 (0-0.4); EOSINOPHIL % 1.2 % (0.0-4.0); HEMATOCRIT 26.1 % (39.0-51.0); HEMO FLAGS DIFF FINAL; LYMPH % 14.4 % (9.0-44.0); LYMPHOCYTE # 1.8 TH/MM3 (1.0-4.8); MEAN CELL VOLUME 84.5 FL (80.0-100.0); MEAN CORPUSCULAR HEMOGLOBIN 26.7 PG (27.0-34.0); MEAN CORPUSCULAR HGB CONC 31.6 % (32.0-36.0); MONO % 8.6 % (0.0-8.0); NEUT % 74.5 % (16.0-70.0); PLATELET COUNT 1003 TH/MM3 (150-450); RED BLOOD COUNT 3.09 MIL/MM3 (4.50-5.90); RED CELL DISTRIBUTION WIDTH 14.5 % (11.6-17.2); WHITE BLOOD COUNT 12.5 TH/MM3 (4.0-11.0)
[2016-09-03 06:35] LABS: ALT (GPT) 95 U/L (12-78); ANION GAP 11 MEQ/L (5-15); AST (GOT) 66 U/L (15-37); BICARBONATE 25.3 MEQ/L (21.0-32.0); BLOOD UREA NITROGEN 14 MG/DL (7-18); CHLORIDE 109 MEQ/L (98-107); GLOMERULAR FILTRATION RATE 137 ML/MIN (>89); MAGNESIUM 2.6 MG/DL (1.5-2.5); POTASSIUM 3.2 MEQ/L (3.5-5.1); SODIUM (NA) 145 MEQ/L (136-145)
[2016-09-03 06:37] LABS: ALKALINE PHOSPHATASE 292 U/L (45-117); TOTAL BILIRUBIN ADULT 0.5 MG/DL (0.2-1.0)
[2016-09-03] MEDS: MISCELLANEOUS NURSING INFORMATION SCH ×2 (07:24→20:46)
[2016-09-03] MEDS: SODIUM CHLORIDE 0.9% FLUSH 5 ML FLUSH IVF SCH ×2 (07:25→20:25)
[2016-09-03] MEDS: POTASSIUM CHLOR 20 MEQ PREMIX 100 ML IV PRN ×3 (07:46→07:48)
[2016-09-03] MEDS: LACTULOSE SYRUP 20 GM/30 ML CUP PO SCH (07:49)
[2016-09-03] MEDS: DOCUSATE SODIUM 100 MG CAP PO SCH ×2 (07:49→20:25)
[2016-09-03] MEDS: BACITRACIN TOP OINT 15 GM TUBE TOP SCH ×2 (07:49→20:25)
[2016-09-03] MEDS: CHLORHEXIDINE 0.12% (ORAL KIT) 15 ML CUP MT SCH ×2 (07:49→20:25)
[2016-09-03] MEDS ORDERED: LACTULOSE SYRUP 20 GM/30 ML CUP PO PRN (08:15)
[2016-09-03] MEDS: FAMOTIDINE 20 MG TAB PO SCH ×2 (09:40→20:25)
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
[2016-09-03] MEDS: ENOXAPARIN SODIUM 40 MG/0.4 ML SYRINGE SQ SCH (11:05)
[2016-09-04] VITALS (17 sets, daily range): BP systolic 122–150; BP diastolic 75–96; PULSE 74–97; RESP 18–23; TEMP 99–99.8; O2SAT 96–100
[2016-09-04] MEDS: PIPERACIL-TAZO 4.5 GM PREMIX 100 ML IV SCH ×3 (02:03→14:48)
[2016-09-04] MEDS: CHLORHEXIDINE GLUCONATE 2 % 1 PACK (2 CLOTHS) TOP SCH (04:00)
[2016-09-04 04:10] LABS: AUTOMATED NEUTROPHIL # 8.6 TH/MM3 (1.8-7.7); BASOPHIL % 0.2 % (0.0-2.0); EOSINOPHIL # 0.3 TH/MM3 (0-0.4); EOSINOPHIL % 2.7 % (0.0-4.0); HEMO FLAGS DIFF FINAL; LYMPH % 15.8 % (9.0-44.0); LYMPHOCYTE # 1.9 TH/MM3 (1.0-4.8); MEAN CELL VOLUME 83.5 FL (80.0-100.0); MEAN CORPUSCULAR HGB CONC 32.3 % (32.0-36.0); MONO % 9.5 % (0.0-8.0); NEUT % 71.8 % (16.0-70.0); PLATELET COUNT 1085 TH/MM3 (150-450); RED BLOOD COUNT 3.24 MIL/MM3 (4.50-5.90); RED CELL DISTRIBUTION WIDTH 14.9 % (11.6-17.2); WHITE BLOOD COUNT 11.9 TH/MM3 (4.0-11.0)
[2016-09-04 04:27] LABS: ANION GAP 9 MEQ/L (5-15); AST (GOT) 83 U/L (15-37); BICARBONATE 24.1 MEQ/L (21.0-32.0); BLOOD UREA NITROGEN 15 MG/DL (7-18); CHLORIDE 110 MEQ/L (98-107); POTASSIUM 3.7 MEQ/L (3.5-5.1); SODIUM (NA) 143 MEQ/L (136-145)
[2016-09-04 04:30] LABS: ALKALINE PHOSPHATASE 317 U/L (45-117); ALT (GPT) 120 U/L (12-78); GLOMERULAR FILTRATION RATE 132 ML/MIN (>89); TOTAL BILIRUBIN ADULT 0.5 MG/DL (0.2-1.0)
[2016-09-04] MEDS: PROPRANOLOL HCL 10 MG TAB PO SCH ×3 (05:34→22:08)
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
[2016-09-04] MEDS: DOCUSATE SODIUM 100 MG CAP PO SCH ×2 (09:00→20:48)
[2016-09-04] MEDS: SODIUM CHLORIDE 0.9% FLUSH 5 ML FLUSH IVF SCH ×2 (09:09→20:48)
[2016-09-04] MEDS: CHLORHEXIDINE 0.12% (ORAL KIT) 15 ML CUP MT SCH ×2 (09:09→20:00)
[2016-09-04] MEDS: MISCELLANEOUS NURSING INFORMATION SCH ×2 (09:13→21:00)
[2016-09-04] MEDS: BACITRACIN TOP OINT 15 GM TUBE TOP SCH ×2 (09:31→20:48)
[2016-09-04] MEDS: FAMOTIDINE 20 MG TAB PO SCH ×2 (09:42→20:48)
[2016-09-04] MEDS: ENOXAPARIN SODIUM 40 MG/0.4 ML SYRINGE SQ SCH (10:15)
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
[2016-09-05] VITALS (17 sets, daily range): BP systolic 113–147; BP diastolic 72–89; PULSE 79–102; RESP 16–22; TEMP 98.7–100; O2SAT 98–100
[2016-09-05] MEDS: CHLORHEXIDINE GLUCONATE 2 % 1 PACK (2 CLOTHS) TOP SCH (03:48)
[2016-09-05 04:11] LABS: AUTOMATED NEUTROPHIL # 10.3 TH/MM3 (1.8-7.7); BASOPHIL # 0.3 TH/MM3 (0-0.2); BASOPHIL % 2.1 % (0.0-2.0); EOSINOPHIL # 0.4 TH/MM3 (0-0.4); HEMATOCRIT 29.2 % (39.0-51.0); HEMO FLAGS DIFF FINAL; LYMPH % 14.5 % (9.0-44.0); LYMPHOCYTE # 2.1 TH/MM3 (1.0-4.8); MEAN CELL VOLUME 83.7 FL (80.0-100.0); MEAN CORPUSCULAR HEMOGLOBIN 26.6 PG (27.0-34.0); MEAN CORPUSCULAR HGB CONC 31.8 % (32.0-36.0); NEUT % 71.4 % (16.0-70.0); PLATELET COUNT 1246 TH/MM3 (150-450); RED BLOOD COUNT 3.49 MIL/MM3 (4.50-5.90); RED CELL DISTRIBUTION WIDTH 14.6 % (11.6-17.2); WHITE BLOOD COUNT 14.4 TH/MM3 (4.0-11.0)
[2016-09-05 04:56] LABS: BICARBONATE 24.5 MEQ/L (21.0-32.0); POTASSIUM 3.8 MEQ/L (3.5-5.1)
[2016-09-05] MEDS: PROPRANOLOL HCL 10 MG TAB PO SCH ×3 (06:47→22:10)
[2016-09-05] MEDS: SODIUM CHLORIDE 0.9% FLUSH 5 ML FLUSH IVF SCH ×2 (09:00→19:58)
[2016-09-05] MEDS: MISCELLANEOUS NURSING INFORMATION SCH ×2 (09:00→19:59)
[2016-09-05] MEDS: FAMOTIDINE 20 MG TAB PO SCH ×2 (09:44→19:58)
[2016-09-05] MEDS: DOCUSATE SODIUM 100 MG CAP PO SCH ×2 (09:44→19:58)
[2016-09-05] MEDS: BACITRACIN TOP OINT 15 GM TUBE TOP SCH ×2 (09:46→19:58)
[2016-09-05] MEDS: CHLORHEXIDINE 0.12% (ORAL KIT) 15 ML CUP MT SCH ×2 (09:52→19:58)
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
[2016-09-05] MEDS: ASPIRIN 325 MG TAB PO SCH (10:06)
[2016-09-05] MEDS: ENOXAPARIN SODIUM 40 MG/0.4 ML SYRINGE SQ SCH (10:06)
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
--- NOTE | 2016-09-05 11:11 | HHI.PR ---
Neuropsych Emotional Emotional: UnabletoAssess: Emotional, Anxious/Fearful, Depressed/Sad, Hostile/ Resentful, Irritable/Angry/Frustrate, Labile, Constricted/Blunted Behavior Behavior: Unable to Asses: Behavior, Coping/Acceptance, Cooperative w/ Treatment, Motivation, Frustration Tolerance/[place], Impulsive/Agitated, Suicidal/ Homicidal Risk Cognitive Cognitive: Unable to Asses: Cognitive, Attention/Concentration, Confused/ Orientation, Insight/Awareness, Judgement/Problem-Solving, Memory Progress Notes/Response to Tx Contents of Sessions: Level of Consciousness Time with Patient: 15 minutes Premorbid psychological status Premorbid Cognitive, Emotional and Behavioral Status: Unable to Assess. The patient has no family present to discuss his baseline status. Behavioral Reactions of Patient and Family/Support System: Unable to Assess. No family present. Emotional/Behavioral Status of Patient and Family/Support System: Unable to Assess. Pertinent issues, if appropriate to this patients clinical care, are described in detail above. Maximizing acute care outcome It is recommended that the patient be monitored for emergent behavioral impulsivity as the medical condition evolves. This patients neuropathological challenges may limit their rehabilitation potential going forward, and these challenges will require specialized therapeutic skills to maximize outcome. Anticipated Problems Ongoing areas of concern will include behavioral impulsivity, lack of insight and judgment, which is expected to improve with time and treatment. Treatment Plan This clinician will continue to follow with you throughout the course of this patients rehabilitation treatment, and I will be available to meet with the patients family/support system to facilitate their understanding and the ongoing care of their family member. The goals of neuropsychological intervention shall be both educational and supportive to the family/support system as is deemed clinically appropriate. [facility] Level: II:General response-total assist Impression This patient has suffered a very severe traumatic brain injury with expected severe residual neurocognitive impairments. Diagnosis: (1) Major neurocognitive disorder as late effect of traumatic brain injury with behavioral disturbance Status: Acute Progress Note Narrative Ongoing follow-up of patient seen during daily trauma rounds. This is day 18 post injury. The patient has exhibited no neurological changes, and withdraws x 4, but otherwise he is not following and not tracking. He is on no sedation medication. Neurobehaviorally, the patient is a Rancho II. It is understood that Dr. Kebede will begin the patient on neurostimulant medication, Amantadine, starting today. I will continue to follow. Hector Garrett PhD September 05, 2016 11:11
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
[2016-09-06] VITALS (16 sets, daily range): BP systolic 116–139; BP diastolic 72–81; PULSE 84–107; RESP 18–23; TEMP 98.4–100; O2SAT 97–100
[2016-09-06] MEDS: CHLORHEXIDINE GLUCONATE 2 % 1 PACK (2 CLOTHS) TOP SCH (03:29)
[2016-09-06] MEDS: PROPRANOLOL HCL 10 MG TAB PO SCH ×3 (05:53→20:59)
[2016-09-06] MEDS: SODIUM CHLORIDE 0.9% FLUSH 5 ML FLUSH IVF SCH ×2 (07:46→20:59)
[2016-09-06] MEDS: MISCELLANEOUS NURSING INFORMATION SCH ×2 (07:46→21:00)
[2016-09-06] MEDS: CHLORHEXIDINE 0.12% (ORAL KIT) 15 ML CUP MT SCH ×2 (07:46→20:00)
[2016-09-06] MEDS: BACITRACIN TOP OINT 15 GM TUBE TOP SCH ×2 (07:46→20:59)
[2016-09-06] MEDS: FAMOTIDINE 20 MG TAB PO SCH ×2 (07:51→20:59)
[2016-09-06] MEDS: DOCUSATE SODIUM 100 MG CAP PO SCH ×2 (07:51→20:59)
[2016-09-06] MEDS: ASPIRIN 325 MG TAB PO SCH (07:51)
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
[2016-09-06] MEDS: ENOXAPARIN SODIUM 40 MG/0.4 ML SYRINGE SQ SCH (11:42)
--- NOTE | 2016-09-06 11:58 | HHI.PR ---
Neuropsych Emotional Emotional: UnabletoAssess: Emotional, Anxious/Fearful, Depressed/Sad, Hostile/ Resentful, Irritable/Angry/Frustrate, Labile, Constricted/Blunted Behavior Behavior: Unable to Asses: Behavior, Coping/Acceptance, Cooperative w/ Treatment, Motivation, Frustration Tolerance/[place], Impulsive/Agitated, Suicidal/ Homicidal Risk Cognitive Cognitive: Unable to Asses: Cognitive, Attention/Concentration, Confused/ Orientation, Insight/Awareness, Judgement/Problem-Solving, Memory Psychosocial Psychosocial: Unable to Asses: Psychosocial, Family/Other Adjustment, Realistic Expectation, Self-Esteem/Confidence Progress Notes/Response to Tx Contents of Sessions: Level of Consciousness Time with Patient: 15 minutes Premorbid psychological status Premorbid Cognitive, Emotional and Behavioral Status: Unable to Assess. The patient has no family present to discuss his baseline status. Behavioral Reactions of Patient and Family/Support System: Unable to Assess. No family present. Emotional/Behavioral Status of Patient and Family/Support System: Unable to Assess. Pertinent issues, if appropriate to this patients clinical care, are described in detail above. Maximizing acute care outcome It is recommended that the patient be monitored for emergent behavioral impulsivity as the medical condition evolves. This patients neuropathological challenges may limit their rehabilitation potential going forward, and these challenges will require specialized therapeutic skills to maximize outcome. Anticipated Problems Ongoing areas of concern will include behavioral impulsivity, lack of insight and judgment, which is expected to improve with time and treatment. Treatment Plan This clinician will continue to follow with you throughout the course of this patients rehabilitation treatment, and I will be available to meet with the patients family/support system to facilitate their understanding and the ongoing care of their family member. The goals of neuropsychological intervention shall be both educational and supportive to the family/support system as is deemed clinically appropriate. [facility] Level: II:General response-total assist Impression This patient has suffered a very severe traumatic brain injury with expected severe residual neurocognitive impairments. Diagnosis: (1) Major neurocognitive disorder as late effect of traumatic brain injury with behavioral disturbance Status: Acute Progress Note Narrative Ongoing follow-up of patient seen during daily trauma rounds. This is day 19 post injury. There has been no neurological change in his status. Palliative care was consulted. The patient will require retirement care. He is at a [facility]. I will continue to follow. Hector Garrett PhD September 06, 2016 11:58
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
[2016-09-07] VITALS (14 sets, daily range): BP systolic 110–150; BP diastolic 71–85; PULSE 95–110; RESP 16–22; TEMP 98.6–99.9; O2SAT 98–100
[2016-09-07] MEDS: CHLORHEXIDINE GLUCONATE 2 % 1 PACK (2 CLOTHS) TOP SCH (04:00)
[2016-09-07 04:26] LABS: AUTOMATED NEUTROPHIL # 13.7 TH/MM3 (1.8-7.7); BASOPHIL # 0.2 TH/MM3 (0-0.2); BASOPHIL % 1.2 % (0.0-2.0); EOSINOPHIL # 0.4 TH/MM3 (0-0.4); EOSINOPHIL % 2.3 % (0.0-4.0); HEMATOCRIT 34.9 % (39.0-51.0); HEMO FLAGS DIFF FINAL; LYMPH % 13.2 % (9.0-44.0); LYMPHOCYTE # 2.4 TH/MM3 (1.0-4.8); MEAN CELL VOLUME 83.9 FL (80.0-100.0); MEAN CORPUSCULAR HEMOGLOBIN 26.6 PG (27.0-34.0); MEAN CORPUSCULAR HGB CONC 31.7 % (32.0-36.0); MONO % 9.4 % (0.0-8.0); NEUT % 73.9 % (16.0-70.0); PLATELET COUNT 985 TH/MM3 (150-450); RED BLOOD COUNT 4.16 MIL/MM3 (4.50-5.90); RED CELL DISTRIBUTION WIDTH 14.6 % (11.6-17.2); WHITE BLOOD COUNT 18.4 TH/MM3 (4.0-11.0)
[2016-09-07 04:45] LABS: BICARBONATE 25.1 MEQ/L (21.0-32.0); POTASSIUM 4.6 MEQ/L (3.5-5.1)
[2016-09-07] MEDS: PROPRANOLOL HCL 10 MG TAB PO SCH ×3 (05:05→22:00)
--- NOTE | 2016-09-07 05:43 | RADRPT ---
EXAM DATE/TIME: 09/07/2016 05:04 [facility] COMPARISON: CHEST SINGLE AP, September 03, 2016, 4:46. INDICATIONS : Shortness of breath. MEDICAL HISTORY : None. SURGICAL HISTORY : None. ENCOUNTER: Subsequent ACUITY: 2 weeks PAIN SCORE: 0/10 LOCATION: Bilateral chest FINDINGS: A single view of the chest demonstrates the lungs to be symmetrically aerated without evidence of mas s, infiltrate or effusion. Tracheostomy tube remains in place. The cardiomediastinal contours are unr emarkable. Osseous structures are intact. CONCLUSION: No acute disease. Darren Watkins MD on September 07, 2016 at 5:42 Board Certified Radiologist. This report was verified electronically.
[2016-09-07] MEDS: ASPIRIN 325 MG TAB PO SCH (07:58)
[2016-09-07] MEDS: FAMOTIDINE 20 MG TAB PO SCH ×2 (07:58→21:13)
[2016-09-07] MEDS: DOCUSATE SODIUM 100 MG CAP PO SCH ×2 (07:58→21:13)
[2016-09-07] MEDS: CHLORHEXIDINE 0.12% (ORAL KIT) 15 ML CUP MT SCH ×2 (07:59→20:13)
[2016-09-07] MEDS: SODIUM CHLORIDE 0.9% FLUSH 5 ML FLUSH IVF SCH ×2 (08:02→21:14)
[2016-09-07] MEDS: BACITRACIN TOP OINT 15 GM TUBE TOP SCH ×2 (08:02→21:14)
[2016-09-07] MEDS: MISCELLANEOUS NURSING INFORMATION SCH ×2 (08:45→20:13)
[2016-09-07] MEDS ORDERED: INFLUENZA VIRUS VACCINE (QUADRIVALENT) 0.5 ML SYR IM ONE (10:00)
[2016-09-07] MEDS ORDERED: PNEUMOCOCCAL POLYVALENT INJ 25 MCG/0.5 ML SYR IM ONE (10:00)
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
[2016-09-07] MEDS: ENOXAPARIN SODIUM 40 MG/0.4 ML SYRINGE SQ SCH (10:25)
--- NOTE | 2016-09-07 10:53 | HHI.PR ---
Neuropsych Emotional Emotional: UnabletoAssess: Emotional, Anxious/Fearful, Depressed/Sad, Hostile/ Resentful, Irritable/Angry/Frustrate, Labile, Constricted/Blunted Behavior Behavior: Unable to Asses: Behavior, Coping/Acceptance, Cooperative w/ Treatment, Motivation, Frustration Tolerance/[place], Impulsive/Agitated, Suicidal/ Homicidal Risk Cognitive Cognitive: Unable to Asses: Cognitive, Attention/Concentration, Confused/ Orientation, Insight/Awareness, Judgement/Problem-Solving, Memory Progress Notes/Response to Tx Contents of Sessions: Level of Consciousness Time with Patient: 15 minutes Premorbid psychological status Premorbid Cognitive, Emotional and Behavioral Status: Unable to Assess. The patient has no family present to discuss his baseline status. Behavioral Reactions of Patient and Family/Support System: Unable to Assess. No family present. Emotional/Behavioral Status of Patient and Family/Support System: Unable to Assess. Pertinent issues, if appropriate to this patients clinical care, are described in detail above. Maximizing acute care outcome It is recommended that the patient be monitored for emergent behavioral impulsivity as the medical condition evolves. This patients neuropathological challenges may limit their rehabilitation potential going forward, and these challenges will require specialized therapeutic skills to maximize outcome. Anticipated Problems Ongoing areas of concern will include behavioral impulsivity, lack of insight and judgment, which is expected to improve with time and treatment. Treatment Plan This clinician will continue to follow with you throughout the course of this patients rehabilitation treatment, and I will be available to meet with the patients family/support system to facilitate their understanding and the ongoing care of their family member. The goals of neuropsychological intervention shall be both educational and supportive to the family/support system as is deemed clinically appropriate. [facility] Level: II:General response-total assist Impression This patient has suffered a very severe traumatic brain injury with expected severe residual neurocognitive impairments. Diagnosis: (1) Major neurocognitive disorder as late effect of traumatic brain injury with behavioral disturbance Status: Acute Progress Note Narrative Ongoing follow-up of patient seen during daily trauma rounds. This is day 20 post injury. Palliative care was consulted regarding patient, but he remains a full code. His sister wishes to take him home to care for him, and she is aware of the prognosis of the injury. He is on no sedation, and has propranolol 10 q8H. The patient is to be transferred to the floor. The patient remains a [place] II. I will continue to follow. Hector Garrett PhD September 07, 2016 10:53
[2016-09-07] MEDS: MORPHINE SULFATE 4 MG/ML INJ IV PUSH PRN (13:18)
[2016-09-08] VITALS (14 sets, daily range): BP systolic 110–140; BP diastolic 65–76; PULSE 96–113; RESP 15–26; TEMP 98.6–99.5; O2SAT 95–100
[2016-09-08] MEDS: CHLORHEXIDINE GLUCONATE 2 % 1 PACK (2 CLOTHS) TOP SCH (05:04)
[2016-09-08 05:07] LABS: AUTOMATED NEUTROPHIL # 11.5 TH/MM3 (1.8-7.7); BASOPHIL # 0.2 TH/MM3 (0-0.2); BASOPHIL % 1.1 % (0.0-2.0); EOSINOPHIL # 0.3 TH/MM3 (0-0.4); EOSINOPHIL % 2.1 % (0.0-4.0); HEMATOCRIT 32.7 % (39.0-51.0); HEMO FLAGS DIFF FINAL; LYMPHOCYTE # 2.4 TH/MM3 (1.0-4.8); MEAN CELL VOLUME 81.8 FL (80.0-100.0); MEAN CORPUSCULAR HEMOGLOBIN 26.8 PG (27.0-34.0); MEAN CORPUSCULAR HGB CONC 32.8 % (32.0-36.0); MONO % 10.2 % (0.0-8.0); NEUT % 71.6 % (16.0-70.0); PLATELET COUNT 1063 TH/MM3 (150-450); RED BLOOD COUNT 3.99 MIL/MM3 (4.50-5.90); RED CELL DISTRIBUTION WIDTH 14.9 % (11.6-17.2); WHITE BLOOD COUNT 16.1 TH/MM3 (4.0-11.0)
[2016-09-08 05:33] LABS: ALKALINE PHOSPHATASE 391 U/L (45-117); ALT (GPT) 164 U/L (12-78); ANION GAP 12 MEQ/L (5-15); AST (GOT) 68 U/L (15-37); BICARBONATE 26.3 MEQ/L (21.0-32.0); BLOOD UREA NITROGEN 21 MG/DL (7-18); CHLORIDE 101 MEQ/L (98-107); GLOMERULAR FILTRATION RATE 125 ML/MIN (>89); POTASSIUM 3.9 MEQ/L (3.5-5.1); SODIUM (NA) 139 MEQ/L (136-145); TOTAL BILIRUBIN ADULT 0.5 MG/DL (0.2-1.0)
[2016-09-08] MEDS: PROPRANOLOL HCL 10 MG TAB PO SCH ×3 (06:00→21:18)
[2016-09-08] MEDS: CHLORHEXIDINE 0.12% (ORAL KIT) 15 ML CUP MT SCH ×2 (07:45→21:20)
[2016-09-08] MEDS: ASPIRIN 325 MG TAB PO SCH (08:23)
[2016-09-08] MEDS: FAMOTIDINE 20 MG TAB PO SCH ×2 (08:23→21:18)
[2016-09-08] MEDS: BACITRACIN TOP OINT 15 GM TUBE TOP SCH ×2 (08:24→21:20)
[2016-09-08] MEDS: DOCUSATE SODIUM 100 MG CAP PO SCH ×2 (08:24→21:18)
[2016-09-08] MEDS: SODIUM CHLORIDE 0.9% FLUSH 5 ML FLUSH IVF SCH ×2 (08:24→21:20)
[2016-09-08] MEDS: MISCELLANEOUS NURSING INFORMATION SCH (08:24)
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
[2016-09-08] MEDS: ENOXAPARIN SODIUM 40 MG/0.4 ML SYRINGE SQ SCH (10:08)
--- NOTE | 2016-09-08 10:37 | HHI.PR ---
Neuropsych Emotional Emotional: UnabletoAssess: Emotional, Anxious/Fearful, Depressed/Sad, Hostile/ Resentful, Irritable/Angry/Frustrate, Labile, Constricted/Blunted Behavior Behavior: Unable to Asses: Behavior, Coping/Acceptance, Cooperative w/ Treatment, Motivation, Frustration Tolerance/[place], Impulsive/Agitated, Suicidal/ Homicidal Risk Cognitive Cognitive: Unable to Asses: Cognitive, Attention/Concentration, Confused/ Orientation, Insight/Awareness, Judgement/Problem-Solving, Memory Progress Notes/Response to Tx Contents of Sessions: Level of Consciousness Time with Patient: 15 minutes Premorbid psychological status Premorbid Cognitive, Emotional and Behavioral Status: Unable to Assess. The patient has no family present to discuss his baseline status. Behavioral Reactions of Patient and Family/Support System: Unable to Assess. No family present. Emotional/Behavioral Status of Patient and Family/Support System: Unable to Assess. Pertinent issues, if appropriate to this patients clinical care, are described in detail above. Maximizing acute care outcome It is recommended that the patient be monitored for emergent behavioral impulsivity as the medical condition evolves. This patients neuropathological challenges may limit their rehabilitation potential going forward, and these challenges will require specialized therapeutic skills to maximize outcome. Anticipated Problems Ongoing areas of concern will include behavioral impulsivity, lack of insight and judgment, which is expected to improve with time and treatment. Treatment Plan This clinician will continue to follow with you throughout the course of this patients rehabilitation treatment, and I will be available to meet with the patients family/support system to facilitate their understanding and the ongoing care of their family member. The goals of neuropsychological intervention shall be both educational and supportive to the family/support system as is deemed clinically appropriate. [facility] Level: III:Localized response-total assist Impression This patient has suffered a very severe traumatic brain injury with expected severe residual neurocognitive impairments. Diagnosis: (1) Major neurocognitive disorder as late effect of traumatic brain injury with behavioral disturbance Status: Acute Progress Note Narrative Ongoing follow-up of patient seen during daily trauma rounds. This is day 21 post injury. There has been no change in his neurobehavioral status, and he is off sedation and off respirator. He opens his eyes, but does not track but withdraws from pain, although nursing reports that he follows commands. This was not observed during my brief exam. He remains a Rancho III. He will require LTAC given the poor neurobehavioral prognosis. I will continue to follow. Hector Garrett PhD September 08, 2016 10:37
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
--- NOTE | 2016-09-08 11:54 | RADRPT ---
EXAM DATE/TIME: 09/08/2016 10:54 [facility] COMPARISON: No previous studies available for comparison. INDICATIONS : Follow up left tibia fractures. MEDICAL HISTORY : None. SURGICAL HISTORY : ORIF left tibia ENCOUNTER: Subsequent ACUITY: 3 weeks PAIN SCORE: Non-responsive. LOCATION: Left tibia FINDINGS: Three view examination left lower leg demonstrates the patient has an IM nail within the tibia with m ultiple distal interlocking screws. There is a lateral fixation plate across the distal fibula. The lateral fixation plate of the fibula ends just distal to the fibular transverse fracture. There is no visible complication. There is a small bone fragment associated with the proximal tibial nail. CONCLUSION: Fracture fixation as described above. The fibular plate begins just below the fibular shaft fracture . Esteban Crespo MD on September 08, 2016 at 11:13 Board Certified Radiologist. This report was verified electronically.
[2016-09-09] VITALS (14 sets, daily range): BP systolic 119–146; BP diastolic 69–89; PULSE 91–111; RESP 22–27; TEMP 98.8–99.9; O2SAT 93–96
[2016-09-09] MEDS: PROPRANOLOL HCL 10 MG TAB PO SCH ×3 (06:30→21:06)
[2016-09-09] MEDS: CHLORHEXIDINE GLUCONATE 2 % 1 PACK (2 CLOTHS) TOP SCH (06:45)
[2016-09-09] MEDS: CHLORHEXIDINE 0.12% (ORAL KIT) 15 ML CUP MT SCH ×2 (08:47→21:07)
[2016-09-09] MEDS: DOCUSATE SODIUM 100 MG CAP PO SCH ×2 (09:00→21:07)
[2016-09-09] MEDS: ASPIRIN 325 MG TAB PO SCH (09:32)
[2016-09-09] MEDS: FAMOTIDINE 20 MG TAB PO SCH ×2 (09:32→21:06)
[2016-09-09] MEDS: ENOXAPARIN SODIUM 40 MG/0.4 ML SYRINGE SQ SCH (09:32)
[2016-09-09] MEDS: SODIUM CHLORIDE 0.9% FLUSH 5 ML FLUSH IVF SCH ×2 (09:33→21:07)
[2016-09-09] MEDS: BACITRACIN TOP OINT 15 GM TUBE TOP SCH ×2 (09:33→21:07)
[2016-09-09] MEDS: MISCELLANEOUS NURSING INFORMATION SCH (10:22)
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
[2016-09-09] MEDS: RESP: ALBUTEROL 2.5 MG/IPRATROPIUM 0.5 MG NEB (PRN) NEB (20:53)
[2016-09-10] VITALS (14 sets, daily range): BP systolic 115–133; BP diastolic 74–84; PULSE 90–109; RESP 21–27; TEMP 98.6–99.5; O2SAT 94–98
[2016-09-10] MEDS: CHLORHEXIDINE GLUCONATE 2 % 1 PACK (2 CLOTHS) TOP SCH
[2016-09-10] MEDS: PROPRANOLOL HCL 10 MG TAB PO SCH ×3 (06:06→21:17)
[2016-09-10] MEDS: DOCUSATE SODIUM 100 MG CAP PO SCH ×2 (08:00→21:00)
[2016-09-10] MEDS: MISCELLANEOUS NURSING INFORMATION SCH ×2 (08:00→21:00)
[2016-09-10] MEDS: CHLORHEXIDINE 0.12% (ORAL KIT) 15 ML CUP MT SCH ×2 (08:00→21:16)
[2016-09-10] MEDS: ENOXAPARIN SODIUM 40 MG/0.4 ML SYRINGE SQ SCH (08:42)
[2016-09-10] MEDS: BACITRACIN TOP OINT 15 GM TUBE TOP SCH ×2 (08:42→21:00)
[2016-09-10] MEDS: SODIUM CHLORIDE 0.9% FLUSH 5 ML FLUSH IVF SCH ×2 (08:42→21:00)
[2016-09-10] MEDS: FAMOTIDINE 20 MG TAB PO SCH ×2 (08:42→21:17)
[2016-09-10] MEDS: ASPIRIN 325 MG TAB PO SCH (08:42)
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
[2016-09-11] VITALS (15 sets, daily range): BP systolic 109–146; BP diastolic 75–84; PULSE 90–111; RESP 17–26; TEMP 98.2–99; O2SAT 93–96
[2016-09-11] MEDS: CHLORHEXIDINE GLUCONATE 2 % 1 PACK (2 CLOTHS) TOP SCH (03:55)
[2016-09-11 04:39] LABS: HEMATOCRIT 36.7 % (39.0-51.0); MEAN CELL VOLUME 82.4 FL (80.0-100.0); MEAN CORPUSCULAR HEMOGLOBIN 26.6 PG (27.0-34.0); MEAN CORPUSCULAR HGB CONC 32.2 % (32.0-36.0); PLATELET COUNT 894 TH/MM3 (150-450); RED BLOOD COUNT 4.45 MIL/MM3 (4.50-5.90); RED CELL DISTRIBUTION WIDTH 14.9 % (11.6-17.2); REVIEW FLAG FINAL; WHITE BLOOD COUNT 16.3 TH/MM3 (4.0-11.0)
[2016-09-11 04:57] LABS: BICARBONATE 26.7 MEQ/L (21.0-32.0); MAGNESIUM 2.9 MG/DL (1.5-2.5)
[2016-09-11] MEDS: PROPRANOLOL HCL 10 MG TAB PO SCH ×3 (06:05→21:54)
[2016-09-11] MEDS: DOCUSATE SODIUM 100 MG CAP PO SCH ×2 (07:41→21:00)
[2016-09-11] MEDS: SODIUM CHLORIDE 0.9% FLUSH 5 ML FLUSH IVF SCH ×2 (08:12→21:00)
[2016-09-11] MEDS: ASPIRIN 325 MG TAB PO SCH (08:17)
[2016-09-11] MEDS: CHLORHEXIDINE 0.12% (ORAL KIT) 15 ML CUP MT SCH ×2 (08:17→20:00)
[2016-09-11] MEDS: FAMOTIDINE 20 MG TAB PO SCH ×2 (08:17→21:54)
[2016-09-11] MEDS: BACITRACIN TOP OINT 15 GM TUBE TOP SCH ×2 (08:18→21:00)
[2016-09-11] MEDS: MISCELLANEOUS NURSING INFORMATION SCH ×2 (09:00→21:00)
[2016-09-11] MEDS: ENOXAPARIN SODIUM 40 MG/0.4 ML SYRINGE SQ SCH (10:53)
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
[2016-09-12] VITALS (10 sets, daily range): BP systolic 108–133; BP diastolic 72–85; PULSE 88–104; RESP 17–20; TEMP 96.7–98.4; O2SAT 94–99
[2016-09-12] MEDS: CHLORHEXIDINE GLUCONATE 2 % 1 PACK (2 CLOTHS) TOP SCH (04:00)
[2016-09-12] MEDS: PROPRANOLOL HCL 10 MG TAB PO SCH ×3 (06:00→21:21)
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
[2016-09-12] MEDS: FAMOTIDINE 20 MG TAB PO SCH ×2 (10:28→21:00)
[2016-09-12] MEDS: ASPIRIN 325 MG TAB PO SCH (10:28)
[2016-09-12] MEDS: DOCUSATE SODIUM 100 MG CAP PO SCH ×2 (10:29→21:00)
[2016-09-12] MEDS: SODIUM CHLORIDE 0.9% FLUSH 5 ML FLUSH IVF SCH ×2 (10:32→21:00)
[2016-09-12] MEDS: BACITRACIN TOP OINT 15 GM TUBE TOP SCH ×2 (10:34→21:00)
[2016-09-12] MEDS: CHLORHEXIDINE 0.12% (ORAL KIT) 15 ML CUP MT SCH ×2 (10:34→20:00)
[2016-09-12] MEDS: MISCELLANEOUS NURSING INFORMATION SCH ×2 (10:45→21:00)
--- NOTE | 2016-09-12 11:07 | HHI.PR ---
Neuropsych Emotional Emotional: UnabletoAssess: Emotional, Anxious/Fearful, Depressed/Sad, Hostile/ Resentful, Irritable/Angry/Frustrate, Labile, Constricted/Blunted Behavior Behavior: Unable to Asses: Behavior, Coping/Acceptance, Cooperative w/ Treatment, Motivation, Frustration Tolerance/[place], Impulsive/Agitated, Suicidal/ Homicidal Risk Cognitive Cognitive: Unable to Asses: Cognitive, Attention/Concentration, Confused/ Orientation, Insight/Awareness, Judgement/Problem-Solving, Memory Progress Notes/Response to Tx Contents of Sessions: Level of Consciousness Time with Patient: 15 minutes Premorbid psychological status Premorbid Cognitive, Emotional and Behavioral Status: Unable to Assess. The patient has no family present to discuss his baseline status. Behavioral Reactions of Patient and Family/Support System: Unable to Assess. No family present. Emotional/Behavioral Status of Patient and Family/Support System: Unable to Assess. Pertinent issues, if appropriate to this patients clinical care, are described in detail above. Maximizing acute care outcome It is recommended that the patient be monitored for emergent behavioral impulsivity as the medical condition evolves. This patients neuropathological challenges may limit their rehabilitation potential going forward, and these challenges will require specialized therapeutic skills to maximize outcome. Anticipated Problems Ongoing areas of concern will include behavioral impulsivity, lack of insight and judgment, which is expected to improve with time and treatment. Treatment Plan This clinician will continue to follow with you throughout the course of this patients rehabilitation treatment, and I will be available to meet with the patients family/support system to facilitate their understanding and the ongoing care of their family member. The goals of neuropsychological intervention shall be both educational and supportive to the family/support system as is deemed clinically appropriate. [facility] Level: III:Localized response-total assist Impression This patient has suffered a very severe traumatic brain injury with expected severe residual neurocognitive impairments. Diagnosis: (1) Major neurocognitive disorder as late effect of traumatic brain injury with behavioral disturbance Status: Acute Progress Note Narrative Ongoing follow-up of patient seen during daily trauma rounds. This is day 25 post injury. The patient has made no neurobehavioral improvements, other than reports that he opens eyes and follows some commands. Trauma team consensus regarding behavioral management is that he remains on propranolol 10 q8H, although there have been no examples of agitation or restlessness in this patient. He remains at a [place] [facility]. I will continue to follow. Hector Garrett PhD September 12, 2016 11:07
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
[2016-09-12] MEDS: ENOXAPARIN SODIUM 40 MG/0.4 ML SYRINGE SQ SCH (13:49)
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
[2016-09-13] VITALS (10 sets, daily range): BP systolic 124–142; BP diastolic 35–89; PULSE 84–95; RESP 16–20; TEMP 96.2–97.8; O2SAT 96–99
[2016-09-13] MEDS: CHLORHEXIDINE GLUCONATE 2 % 1 PACK (2 CLOTHS) TOP SCH (04:00)
[2016-09-13] MEDS: PROPRANOLOL HCL 10 MG TAB PO SCH ×3 (05:45→21:08)
[2016-09-13] MEDS: MISCELLANEOUS NURSING INFORMATION SCH ×2 (09:25→21:00)
[2016-09-13] MEDS: DOCUSATE SODIUM 100 MG CAP PO SCH ×2 (09:38→21:00)
[2016-09-13] MEDS: ASPIRIN 325 MG TAB PO SCH (09:38)
[2016-09-13] MEDS: FAMOTIDINE 20 MG TAB PO SCH ×2 (09:38→21:00)
[2016-09-13] MEDS: SODIUM CHLORIDE 0.9% FLUSH 5 ML FLUSH IVF SCH ×2 (09:41→21:00)
[2016-09-13] MEDS: CHLORHEXIDINE 0.12% (ORAL KIT) 15 ML CUP MT SCH ×2 (09:45→20:00)
[2016-09-13] MEDS: BACITRACIN TOP OINT 15 GM TUBE TOP SCH ×2 (09:45→21:00)
[2016-09-13] MEDS: ENOXAPARIN SODIUM 40 MG/0.4 ML SYRINGE SQ SCH (11:30)
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
[2016-09-14] VITALS (7 sets, daily range): BP systolic 120–143; BP diastolic 78–90; PULSE 89–101; RESP 14–24; TEMP 96.1–98.2; O2SAT 96–99
[2016-09-14] MEDS: CHLORHEXIDINE GLUCONATE 2 % 1 PACK (2 CLOTHS) TOP SCH (04:00)
[2016-09-14] MEDS: PROPRANOLOL HCL 10 MG TAB PO SCH ×3 (05:26→21:36)
[2016-09-14] MEDS: CHLORHEXIDINE 0.12% (ORAL KIT) 15 ML CUP MT SCH ×2 (08:00→21:40)
[2016-09-14] MEDS: DOCUSATE SODIUM 100 MG CAP PO SCH ×2 (09:00→21:36)
[2016-09-14] MEDS: ENOXAPARIN SODIUM 40 MG/0.4 ML SYRINGE SQ SCH (09:39)
[2016-09-14] MEDS: SODIUM CHLORIDE 0.9% FLUSH 5 ML FLUSH IVF SCH ×2 (09:40→21:40)
[2016-09-14] MEDS: FAMOTIDINE 20 MG TAB PO SCH ×2 (09:41→21:36)
[2016-09-14] MEDS: BACITRACIN TOP OINT 15 GM TUBE TOP SCH ×2 (09:41→21:39)
[2016-09-14] MEDS: ASPIRIN 325 MG TAB PO SCH (09:41)
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
[2016-09-14 15:35] LABS: ALKALINE PHOSPHATASE 336 U/L (45-117); TOTAL BILIRUBIN ADULT 0.4 MG/DL (0.2-1.0)
[2016-09-14 15:51] LABS: ALT (GPT) 194 U/L (12-78); ANION GAP 9 MEQ/L (5-15); AST (GOT) 59 U/L (15-37); BICARBONATE 24.7 MEQ/L (21.0-32.0); BLOOD UREA NITROGEN 25 MG/DL (7-18); CHLORIDE 107 MEQ/L (98-107); GLOMERULAR FILTRATION RATE 121 ML/MIN (>89); POTASSIUM 4.4 MEQ/L (3.5-5.1); SODIUM (NA) 141 MEQ/L (136-145)
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
[2016-09-14] MEDS: AMANTADINE HCL SOLN 100 MG/10 ML UDC PO SCH (17:30)
[2016-09-14 18:36] LABS: AUTOMATED NEUTROPHIL # 12.4 TH/MM3 (1.8-7.7); BASOPHIL # 0.3 TH/MM3 (0-0.2); BASOPHIL % 1.6 % (0.0-2.0); EOSINOPHIL # 0.2 TH/MM3 (0-0.4); EOSINOPHIL % 1.3 % (0.0-4.0); HEMATOCRIT 37.2 % (39.0-51.0); HEMO FLAGS DIFF FINAL; LYMPH % 13.2 % (9.0-44.0); LYMPHOCYTE # 2.1 TH/MM3 (1.0-4.8); MEAN CELL VOLUME 83.2 FL (80.0-100.0); MEAN CORPUSCULAR HEMOGLOBIN 26.5 PG (27.0-34.0); MEAN CORPUSCULAR HGB CONC 31.8 % (32.0-36.0); MONO % 6.9 % (0.0-8.0); PLATELET COUNT 701 TH/MM3 (150-450); RED BLOOD COUNT 4.47 MIL/MM3 (4.50-5.90); RED CELL DISTRIBUTION WIDTH 14.7 % (11.6-17.2); WHITE BLOOD COUNT 16.1 TH/MM3 (4.0-11.0)
[2016-09-14] MEDS: MISCELLANEOUS NURSING INFORMATION SCH (21:00)
[2016-09-15] VITALS (7 sets, daily range): BP systolic 111–132; BP diastolic 76–84; PULSE 88–101; RESP 18–22; TEMP 96.3–97.8; O2SAT 96–100
[2016-09-15] MEDS: CHLORHEXIDINE GLUCONATE 2 % 1 PACK (2 CLOTHS) TOP SCH (04:00)
[2016-09-15] MEDS: PROPRANOLOL HCL 10 MG TAB PO SCH ×2 (06:08→21:02)
[2016-09-15] MEDS: CHLORHEXIDINE 0.12% (ORAL KIT) 15 ML CUP MT SCH ×2 (08:00→09:00)
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
[2016-09-15] MEDS: SODIUM CHLORIDE 0.9% FLUSH 5 ML FLUSH IVF SCH ×2 (09:00→21:00)
[2016-09-15] MEDS: DOCUSATE SODIUM 100 MG CAP PO SCH ×2 (09:39→21:01)
[2016-09-15] MEDS: ASPIRIN 325 MG TAB PO SCH (09:39)
[2016-09-15] MEDS: FAMOTIDINE 20 MG TAB PO SCH ×2 (09:39→21:01)
[2016-09-15] MEDS: AMANTADINE HCL SOLN 100 MG/10 ML UDC PO SCH (09:39)
[2016-09-15] MEDS: BACITRACIN TOP OINT 15 GM TUBE TOP SCH ×2 (09:40→21:00)
[2016-09-15] MEDS: ENOXAPARIN SODIUM 40 MG/0.4 ML SYRINGE SQ SCH (09:41)
[2016-09-15] MEDS: MISCELLANEOUS NURSING INFORMATION SCH ×2 (10:00→21:00)
--- NOTE | 2016-09-15 11:49 | HHI.PR ---
Neuropsych Emotional Emotional: UnabletoAssess: Emotional, Anxious/Fearful, Depressed/Sad, Hostile/ Resentful, Irritable/Angry/Frustrate, Labile, Constricted/Blunted Behavior Behavior: Unable to Asses: Behavior, Coping/Acceptance, Cooperative w/ Treatment, Motivation, Frustration Tolerance/[place], Impulsive/Agitated, Suicidal/ Homicidal Risk Cognitive Cognitive: Unable to Asses: Cognitive, Attention/Concentration, Confused/ Orientation, Insight/Awareness, Judgement/Problem-Solving, Memory Psychosocial Psychosocial: Intact: Psychosocial, Mild: Family/Other Adjustment, Severe: Realistic Expectation, Unable to Asses: Self-Esteem/Confidence Progress Notes/Response to Tx Contents of Sessions: Adjustment Time with Patient: 15 minutes Premorbid psychological status Premorbid Cognitive, Emotional and Behavioral Status: Unable to Assess. The patient has no family present to discuss his baseline status. Behavioral Reactions of Patient and Family/Support System: Unable to Assess. No family present. Emotional/Behavioral Status of Patient and Family/Support System: Unable to Assess. Pertinent issues, if appropriate to this patients clinical care, are described in detail above. Maximizing acute care outcome It is recommended that the patient be monitored for emergent behavioral impulsivity as the medical condition evolves. This patients neuropathological challenges may limit their rehabilitation potential going forward, and these challenges will require specialized therapeutic skills to maximize outcome. Anticipated Problems Ongoing areas of concern will include behavioral impulsivity, lack of insight and judgment, which is expected to improve with time and treatment. Treatment Plan This clinician will continue to follow with you throughout the course of this patients rehabilitation treatment, and I will be available to meet with the patients family/support system to facilitate their understanding and the ongoing care of their family member. The goals of neuropsychological intervention shall be both educational and supportive to the family/support system as is deemed clinically appropriate. [facility] Level: II:General response-total assist Impression This patient has suffered a very severe traumatic brain injury with expected severe residual neurocognitive impairments. Diagnosis: (1) Major neurocognitive disorder as late effect of traumatic brain injury with behavioral disturbance Status: Acute Progress Note Narrative Ongoing follow-up of patient seen during daily trauma rounds. This is day 38 post injury. The patient is awake, but does not follow and has no purposeful movements. He is trach and PEG. He was started on Amantadine 100 qam, with goal to increase to 100 q0700 and 1200 in three more days. Other medications included propranolol 10 q8H, which was discontinued today per trauma team consensus. The patient remains a [facility]. I will continue to follow. Hector Garrett PhD September 15, 2016 11:49
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
[2016-09-15] MEDS: LACTULOSE SYRUP 20 GM/30 ML CUP PO SCH (14:30)
[2016-09-15] MEDS: diphenhydrAMINE HCL 25 MG CAP PO PRN (21:02)
[2016-09-16] VITALS (9 sets, daily range): BP systolic 111–138; BP diastolic 73–87; PULSE 75–96; RESP 18–20; TEMP 96.3–97.7; O2SAT 97–100
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
[2016-09-16] MEDS: CHLORHEXIDINE GLUCONATE 2 % 1 PACK (2 CLOTHS) TOP SCH (00:46)
[2016-09-16] MEDS: AMANTADINE HCL SOLN 100 MG/10 ML UDC PO SCH (05:25)
[2016-09-16 08:40] LABS: AUTOMATED NEUTROPHIL # 8.4 TH/MM3 (1.8-7.7); BASOPHIL # 0.1 TH/MM3 (0-0.2); BASOPHIL % 0.9 % (0.0-2.0); EOSINOPHIL # 0.4 TH/MM3 (0-0.4); EOSINOPHIL % 3.5 % (0.0-4.0); HEMATOCRIT 38.5 % (39.0-51.0); HEMO FLAGS DIFF FINAL; LYMPH % 20.7 % (9.0-44.0); LYMPHOCYTE # 2.6 TH/MM3 (1.0-4.8); MEAN CELL VOLUME 83.6 FL (80.0-100.0); MEAN CORPUSCULAR HEMOGLOBIN 26.4 PG (27.0-34.0); MEAN CORPUSCULAR HGB CONC 31.5 % (32.0-36.0); MONO % 7.6 % (0.0-8.0); NEUT % 67.3 % (16.0-70.0); PLATELET COUNT 652 TH/MM3 (150-450); RED CELL DISTRIBUTION WIDTH 15.2 % (11.6-17.2); WHITE BLOOD COUNT 12.5 TH/MM3 (4.0-11.0)
[2016-09-16 08:49] LABS: PROTHROMBIN TIME - PATIENT 10.5 SEC (9.8-11.6)
[2016-09-16] MEDS: MISCELLANEOUS NURSING INFORMATION SCH (09:00)
[2016-09-16] MEDS: CHLORHEXIDINE 0.12% (ORAL KIT) 15 ML CUP MT SCH ×2 (09:00→20:00)
[2016-09-16 09:13] LABS: ALKALINE PHOSPHATASE 314 U/L (45-117); ALT (GPT) 162 U/L (12-78); ANION GAP 12 MEQ/L (5-15); AST (GOT) 51 U/L (15-37); BICARBONATE 25.5 MEQ/L (21.0-32.0); BLOOD UREA NITROGEN 26 MG/DL (7-18); CHLORIDE 102 MEQ/L (98-107); GLOMERULAR FILTRATION RATE 123 ML/MIN (>89); POTASSIUM 3.9 MEQ/L (3.5-5.1); SODIUM (NA) 139 MEQ/L (136-145); TOTAL BILIRUBIN ADULT 0.5 MG/DL (0.2-1.0)
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
[2016-09-16] MEDS: SODIUM CHLORIDE 0.9% FLUSH 5 ML FLUSH IVF SCH ×2 (12:34→22:30)
[2016-09-16] MEDS: DOCUSATE SODIUM 100 MG CAP PO SCH ×2 (12:35→21:00)
[2016-09-16] MEDS: ASPIRIN 325 MG TAB PO SCH (12:35)
[2016-09-16] MEDS: PROPRANOLOL HCL 10 MG TAB PO SCH ×2 (12:35→22:29)
[2016-09-16] MEDS: LACTULOSE SYRUP 20 GM/30 ML CUP PO SCH (12:36)
[2016-09-16] MEDS: BACITRACIN TOP OINT 15 GM TUBE TOP SCH ×2 (12:36→22:31)
[2016-09-16] MEDS: FAMOTIDINE 20 MG TAB PO SCH ×2 (12:36→22:29)
[2016-09-16] MEDS: ENOXAPARIN SODIUM 40 MG/0.4 ML SYRINGE SQ SCH (12:37)
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
[2016-09-16] MEDS: ACETAMINOPHEN 325 MG TAB PO PRN (22:29)
[2016-09-17] VITALS (8 sets, daily range): BP systolic 125–138; BP diastolic 80–90; PULSE 81–92; RESP 19–20; TEMP 96.5–97.3; O2SAT 98–100
[2016-09-17] MEDS: CHLORHEXIDINE GLUCONATE 2 % 1 PACK (2 CLOTHS) TOP SCH (04:00)
[2016-09-17] MEDS: AMANTADINE HCL SOLN 100 MG/10 ML UDC PO SCH (07:35)
[2016-09-17] MEDS: CHLORHEXIDINE 0.12% (ORAL KIT) 15 ML CUP MT SCH ×2 (08:00→20:00)
[2016-09-17] MEDS: DOCUSATE SODIUM 100 MG CAP PO SCH ×2 (09:00→23:00)
[2016-09-17] MEDS: LACTULOSE SYRUP 20 GM/30 ML CUP PO SCH (09:00)
[2016-09-17] MEDS: SODIUM CHLORIDE 0.9% FLUSH 5 ML FLUSH IVF SCH ×2 (09:00→23:01)
[2016-09-17] MEDS: BACITRACIN TOP OINT 15 GM TUBE TOP SCH ×2 (09:00→23:01)
[2016-09-17] MEDS: ASPIRIN 325 MG TAB PO SCH (10:21)
[2016-09-17] MEDS: FAMOTIDINE 20 MG TAB PO SCH ×2 (10:21→23:00)
[2016-09-17] MEDS: ENOXAPARIN SODIUM 40 MG/0.4 ML SYRINGE SQ SCH (10:22)
[2016-09-17] MEDS: PROPRANOLOL HCL 10 MG TAB PO SCH ×2 (10:22→23:00)
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
[2016-09-17] MEDS: ACETAMINOPHEN 325 MG TAB PO PRN (23:00)
[2016-09-18] VITALS (8 sets, daily range): BP systolic 118–132; BP diastolic 76–83; PULSE 80–103; RESP 20; TEMP 95.9–98.2; O2SAT 99–100
[2016-09-18] MEDS: CHLORHEXIDINE GLUCONATE 2 % 1 PACK (2 CLOTHS) TOP SCH (04:00)
[2016-09-18] MEDS: ACETAMINOPHEN 325 MG TAB PO PRN ×2 (05:49→23:23)
[2016-09-18] MEDS: AMANTADINE HCL SOLN 100 MG/10 ML UDC PO SCH (05:49)
[2016-09-18] MEDS: CHLORHEXIDINE 0.12% (ORAL KIT) 15 ML CUP MT SCH ×2 (08:00→20:00)
[2016-09-18] MEDS: SODIUM CHLORIDE 0.9% FLUSH 5 ML FLUSH IVF SCH ×2 (09:00→23:24)
[2016-09-18] MEDS: LACTULOSE SYRUP 20 GM/30 ML CUP PO SCH (09:47)
[2016-09-18] MEDS: ASPIRIN 325 MG TAB PO SCH (09:47)
[2016-09-18] MEDS: FAMOTIDINE 20 MG TAB PO SCH ×2 (09:47→23:24)
[2016-09-18] MEDS: DOCUSATE SODIUM 100 MG CAP PO SCH ×2 (09:47→21:00)
[2016-09-18] MEDS: PROPRANOLOL HCL 10 MG TAB PO SCH ×2 (09:47→23:24)
[2016-09-18] MEDS: BACITRACIN TOP OINT 15 GM TUBE TOP SCH ×2 (09:48→23:24)
[2016-09-18] MEDS: ENOXAPARIN SODIUM 40 MG/0.4 ML SYRINGE SQ SCH (11:33)
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
[2016-09-19] VITALS (8 sets, daily range): BP systolic 119–129; BP diastolic 78–85; PULSE 78–93; RESP 20; TEMP 96.9–98.3; O2SAT 99–100
[2016-09-19] MEDS: CHLORHEXIDINE GLUCONATE 2 % 1 PACK (2 CLOTHS) TOP SCH (03:31)
[2016-09-19] MEDS: AMANTADINE HCL SOLN 100 MG/10 ML UDC PO SCH ×2 (05:40→21:29)
[2016-09-19] MEDS: ACETAMINOPHEN 325 MG TAB PO PRN (05:40)
[2016-09-19] MEDS: CHLORHEXIDINE 0.12% (ORAL KIT) 15 ML CUP MT SCH ×2 (08:00→20:00)
[2016-09-19] MEDS: PROPRANOLOL HCL 10 MG TAB PO SCH ×2 (08:29→21:29)
[2016-09-19] MEDS: FAMOTIDINE 20 MG TAB PO SCH ×2 (08:29→21:29)
[2016-09-19] MEDS: SODIUM CHLORIDE 0.9% FLUSH 5 ML FLUSH IVF SCH ×2 (08:29→21:00)
[2016-09-19] MEDS: ASPIRIN 325 MG TAB PO SCH (08:29)
[2016-09-19] MEDS: DOCUSATE SODIUM 100 MG CAP PO SCH ×2 (08:29→21:29)
[2016-09-19] MEDS: BACITRACIN TOP OINT 15 GM TUBE TOP SCH ×2 (08:30→21:00)
[2016-09-19 09:43] LABS: HEMATOCRIT 38.9 % (39.0-51.0); MEAN CELL VOLUME 82.8 FL (80.0-100.0); MEAN CORPUSCULAR HEMOGLOBIN 26.2 PG (27.0-34.0); MEAN CORPUSCULAR HGB CONC 31.7 % (32.0-36.0); PLATELET COUNT 477 TH/MM3 (150-450); RED CELL DISTRIBUTION WIDTH 15.6 % (11.6-17.2); WHITE BLOOD COUNT 11.3 TH/MM3 (4.0-11.0)
[2016-09-19 09:48] LABS: HEMO FLAGS AUTO DIFF
[2016-09-19 10:13] LABS: ALKALINE PHOSPHATASE 268 U/L (45-117); ALT (GPT) 110 U/L (12-78); ANION GAP 7 MEQ/L (5-15); AST (GOT) 46 U/L (15-37); BLOOD UREA NITROGEN 19 MG/DL (7-18); CHLORIDE 105 MEQ/L (98-107); GLOMERULAR FILTRATION RATE 115 ML/MIN (>89); SODIUM (NA) 142 MEQ/L (136-145); TOTAL BILIRUBIN ADULT 0.4 MG/DL (0.2-1.0)
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
[2016-09-19 10:48] LABS: BANDS 3 % (0-6); BASOPHILS 3 % (0-2); EOSINOPHILS 2 % (0-4); NEUTROPHIL # MANUAL DIFF 8.6 TH/MM3 (1.8-7.7); PLATELET ESTIMATE SMEAR HIGH (NORMAL); PLATELET MORPHOLOGY NORMAL (NORMAL); POLYS (SEG NEUTROPHILS) 73 % (16-70); WBC DIFF SAMPLE 100
[2016-09-19 10:49] LABS: SCAN/DIFF FINAL DIFF MANUAL
[2016-09-19] MEDS: ENOXAPARIN SODIUM 40 MG/0.4 ML SYRINGE SQ SCH (13:06)
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
[2016-09-19] MEDS: MISCELLANEOUS NURSING INFORMATION SCH (21:00)
[2016-09-20] VITALS (9 sets, daily range): BP systolic 116–134; BP diastolic 79–88; PULSE 86–93; RESP 18–20; TEMP 97–97.7; O2SAT 96–100
[2016-09-20] MEDS: SODIUM CHLORIDE 0.9% FLUSH 5 ML FLUSH IVF SCH ×2 (08:59→21:00)
[2016-09-20] MEDS: FAMOTIDINE 20 MG TAB PO SCH ×2 (08:59→21:00)
[2016-09-20] MEDS: BACITRACIN TOP OINT 15 GM TUBE TOP SCH ×2 (08:59→21:00)
[2016-09-20] MEDS: AMANTADINE HCL SOLN 100 MG/10 ML UDC PO SCH (08:59)
[2016-09-20] MEDS: ASPIRIN 325 MG TAB PO SCH (08:59)
[2016-09-20] MEDS: CHLORHEXIDINE 0.12% (ORAL KIT) 15 ML CUP MT SCH ×2 (08:59→20:00)
[2016-09-20] MEDS: PROPRANOLOL HCL 10 MG TAB PO SCH ×2 (08:59→21:00)
[2016-09-20] MEDS: DOCUSATE SODIUM 100 MG CAP PO SCH ×2 (08:59→21:00)
[2016-09-20] MEDS: MISCELLANEOUS NURSING INFORMATION SCH ×2 (09:01→21:00)
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
[2016-09-20] MEDS: ENOXAPARIN SODIUM 40 MG/0.4 ML SYRINGE SQ SCH (10:58)
--- NOTE | 2016-09-20 13:14 | HHI.PR ---
Neuropsych Emotional Emotional: UnabletoAssess: Emotional, Anxious/Fearful, Depressed/Sad, Hostile/ Resentful, Irritable/Angry/Frustrate, Labile, Constricted/Blunted Behavior Behavior: Unable to Asses: Behavior, Coping/Acceptance, Cooperative w/ Treatment, Motivation, Frustration Tolerance/[place], Impulsive/Agitated, Suicidal/ Homicidal Risk Cognitive Cognitive: Unable to Asses: Cognitive, Attention/Concentration, Confused/ Orientation, Insight/Awareness, Judgement/Problem-Solving, Memory Progress Notes/Response to Tx Contents of Sessions: Adjustment, Level of Consciousness Time with Patient: 15 minutes Premorbid psychological status Premorbid Cognitive, Emotional and Behavioral Status: Unable to Assess. The patient has no family present to discuss his baseline status. Behavioral Reactions of Patient and Family/Support System: Unable to Assess. No family present. Emotional/Behavioral Status of Patient and Family/Support System: Unable to Assess. Pertinent issues, if appropriate to this patients clinical care, are described in detail above. Maximizing acute care outcome It is recommended that the patient be monitored for emergent behavioral impulsivity as the medical condition evolves. This patients neuropathological challenges may limit their rehabilitation potential going forward, and these challenges will require specialized therapeutic skills to maximize outcome. Anticipated Problems Ongoing areas of concern will include behavioral impulsivity, lack of insight and judgment, which is expected to improve with time and treatment. Treatment Plan This clinician will continue to follow with you throughout the course of this patients rehabilitation treatment, and I will be available to meet with the patients family/support system to facilitate their understanding and the ongoing care of their family member. The goals of neuropsychological intervention shall be both educational and supportive to the family/support system as is deemed clinically appropriate. [facility] Level: II:General response-total assist Impression This patient has suffered a very severe traumatic brain injury with expected severe residual neurocognitive impairments. Diagnosis: (1) Major neurocognitive disorder as late effect of traumatic brain injury with behavioral disturbance Status: Acute Progress Note Narrative Ongoing follow-up of patient seen during daily trauma rounds. This is day 33 post injury. The patient is awake but non-verbal, with no neurobehavioral improvements. He was being placed in a cardiac chair on arrival for exam. He is prescribed amantadine BID, with the trauma team recommendation to schedule this medication at 0700 and 1200 in order to optimize it's effectiveness. The patient remains at a [facility] II. I will continue to follow. Hector Garrett PhD September 20, 2016 13:13
[2016-09-20] MEDS: AMANTADINE HCL 100 MG CAP PO SCH (13:37)
[2016-09-21] VITALS (8 sets, daily range): BP systolic 120–137; BP diastolic 73–86; PULSE 82–97; RESP 16–22; TEMP 95.8–98.9; O2SAT 96–100
[2016-09-21] MEDS ORDERED: AMANTADINE HCL 100 MG CAP PO SCH (07:00)
[2016-09-21] MEDS: DOCUSATE SODIUM 100 MG CAP PO SCH ×2 (09:59→21:10)
[2016-09-21] MEDS: FAMOTIDINE 20 MG TAB PO SCH ×2 (09:59→21:10)
[2016-09-21] MEDS: LACTULOSE SYRUP 20 GM/30 ML CUP PO SCH (10:00)
[2016-09-21] MEDS: BACITRACIN TOP OINT 15 GM TUBE TOP SCH ×2 (10:00→21:00)
[2016-09-21] MEDS: PROPRANOLOL HCL 10 MG TAB PO SCH ×2 (10:00→21:10)
[2016-09-21] MEDS: ASPIRIN 325 MG TAB PO SCH (10:00)
[2016-09-21] MEDS: CHLORHEXIDINE 0.12% (ORAL KIT) 15 ML CUP MT SCH ×2 (10:01→20:00)
[2016-09-21] MEDS: SODIUM CHLORIDE 0.9% FLUSH 5 ML FLUSH IVF SCH ×2 (10:01→21:00)
[2016-09-21] MEDS: MISCELLANEOUS NURSING INFORMATION SCH ×2 (10:01→21:00)
[2016-09-21] MEDS: ENOXAPARIN SODIUM 40 MG/0.4 ML SYRINGE SQ SCH (10:01)
[2016-09-21] MEDS: AMANTADINE HCL 100 MG CAP PO SCH (11:51)
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
[2016-09-22] VITALS (8 sets, daily range): BP systolic 112–136; BP diastolic 63–81; PULSE 82–123; RESP 18–22; TEMP 96.1–99.3; O2SAT 98–100
[2016-09-22] MEDS: AMANTADINE HCL SOLN 100 MG/10 ML UDC PO SCH ×2 (05:54→11:06)
[2016-09-22] MEDS: CHLORHEXIDINE 0.12% (ORAL KIT) 15 ML CUP MT SCH ×2 (08:00→21:15)
[2016-09-22] MEDS: DOCUSATE SODIUM 100 MG CAP PO SCH ×2 (08:23→21:15)
[2016-09-22] MEDS: MISCELLANEOUS NURSING INFORMATION SCH (08:23)
[2016-09-22] MEDS: LACTULOSE SYRUP 20 GM/30 ML CUP PO SCH (08:23)
[2016-09-22] MEDS: PROPRANOLOL HCL 10 MG TAB PO SCH ×2 (08:23→21:12)
[2016-09-22] MEDS: SODIUM CHLORIDE 0.9% FLUSH 5 ML FLUSH IVF SCH ×2 (08:23→21:15)
[2016-09-22] MEDS: ASPIRIN 325 MG TAB PO SCH (08:23)
[2016-09-22] MEDS: FAMOTIDINE 20 MG TAB PO SCH ×2 (08:23→21:12)
[2016-09-22] MEDS: BACITRACIN TOP OINT 15 GM TUBE TOP SCH ×2 (08:24→21:15)
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
[2016-09-22] MEDS: ENOXAPARIN SODIUM 40 MG/0.4 ML SYRINGE SQ SCH (11:05)
[2016-09-22] MEDS ORDERED: HYOSCYAMINE 0.125 MG TAB PO PRN (14:30)
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
[2016-09-22] MEDS: diphenhydrAMINE HCL 25 MG CAP PO PRN (21:12)
[2016-09-23] VITALS (8 sets, daily range): BP systolic 102–148; BP diastolic 76–122; PULSE 79–120; RESP 17–19; TEMP 96.7–98.8; O2SAT 94–100
[2016-09-23] MEDS: AMANTADINE HCL SOLN 100 MG/10 ML UDC PO SCH ×2 (06:30→12:16)
[2016-09-23] MEDS: MISCELLANEOUS NURSING INFORMATION SCH ×2 (07:28→20:47)
[2016-09-23] MEDS: CHLORHEXIDINE 0.12% (ORAL KIT) 15 ML CUP MT SCH ×2 (08:00→20:00)
[2016-09-23] MEDS: SODIUM CHLORIDE 0.9% FLUSH 5 ML FLUSH IVF SCH ×2 (09:00→20:46)
[2016-09-23] MEDS: BACITRACIN TOP OINT 15 GM TUBE TOP SCH ×2 (09:00→20:46)
[2016-09-23] MEDS: DOCUSATE SODIUM 100 MG CAP PO SCH (09:56)
[2016-09-23] MEDS: LACTULOSE SYRUP 20 GM/30 ML CUP PO SCH (09:56)
[2016-09-23] MEDS: ASPIRIN 325 MG TAB PO SCH (09:56)
[2016-09-23] MEDS: FAMOTIDINE 20 MG TAB PO SCH ×2 (09:56→20:46)
[2016-09-23] MEDS: ENOXAPARIN SODIUM 40 MG/0.4 ML SYRINGE SQ SCH (09:58)
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
[2016-09-24] VITALS (8 sets, daily range): BP systolic 114–146; BP diastolic 59–92; PULSE 88–102; RESP 18–20; TEMP 97.5–99; O2SAT 97–100
[2016-09-24] MEDS: AMANTADINE HCL SOLN 100 MG/10 ML UDC PO SCH ×2 (06:06→12:26)
[2016-09-24] MEDS: ASPIRIN 325 MG TAB PO SCH (10:11)
[2016-09-24] MEDS: CHLORHEXIDINE 0.12% (ORAL KIT) 15 ML CUP MT SCH (10:11)
[2016-09-24] MEDS: SODIUM CHLORIDE 0.9% FLUSH 5 ML FLUSH IVF SCH ×2 (10:11→20:46)
[2016-09-24] MEDS: FAMOTIDINE 20 MG TAB PO SCH ×2 (10:12→20:46)
[2016-09-24] MEDS: BACITRACIN TOP OINT 15 GM TUBE TOP SCH ×2 (10:12→20:46)
[2016-09-24] MEDS: MISCELLANEOUS NURSING INFORMATION SCH (10:13)
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
[2016-09-24] MEDS ORDERED: cefTRIAXone 250 MG VIAL IM ONE (13:30)
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
[2016-09-24] MEDS: ENOXAPARIN SODIUM 40 MG/0.4 ML SYRINGE SQ SCH (15:08)
[2016-09-24] MEDS: SODIUM CHLOR 0.9% 1000 ML INJ 1,000 ML IV SCH (23:45)
[2016-09-25] VITALS (8 sets, daily range): BP systolic 106–141; BP diastolic 59–97; PULSE 79–102; RESP 18–20; TEMP 97.5–98.5; O2SAT 94–100
[2016-09-25] MEDS: AMANTADINE HCL SOLN 100 MG/10 ML UDC PO SCH ×2 (08:44→12:45)
[2016-09-25] MEDS: MISCELLANEOUS NURSING INFORMATION SCH ×3 (08:45→21:00)
[2016-09-25] MEDS: FAMOTIDINE 20 MG TAB PO SCH ×2 (08:45→21:00)
[2016-09-25] MEDS: SODIUM CHLORIDE 0.9% FLUSH 5 ML FLUSH IVF SCH ×2 (08:45→21:00)
[2016-09-25] MEDS: CHLORHEXIDINE 0.12% (ORAL KIT) 15 ML CUP MT SCH ×3 (08:45→20:00)
[2016-09-25] MEDS: BACITRACIN TOP OINT 15 GM TUBE TOP SCH ×2 (08:45→22:00)
[2016-09-25] MEDS: ASPIRIN 325 MG TAB PO SCH (08:45)
[2016-09-25] MEDS: SODIUM CHLOR 0.9% 1000 ML INJ 1,000 ML IV SCH (12:46)
[2016-09-25] MEDS: ENOXAPARIN SODIUM 40 MG/0.4 ML SYRINGE SQ SCH (13:21)
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
[2016-09-25] MEDS ORDERED: METOPROLOL TARTRATE 25 MG TAB PO PRN (21:00)
[2016-09-25] MEDS ORDERED: POVIDONE IODINE 5% (ANTISEPSIS KIT) 4 APPLICATIONS EACH NARE PRN (21:00)
[2016-09-25] MEDS ORDERED: SODIUM CHLORID 0.9% 500 ML IV PRN (21:00)
[2016-09-25] MEDS ORDERED: LACTATED RINGER'S 1000 ML IV PRN (21:00)
[2016-09-25] MEDS ORDERED: CHLORHEXIDINE GLUCONATE 2 % 1 PACK (2 CLOTHS) TOPICAL PRN (21:00)
[2016-09-25] MEDS ORDERED: INSULIN HUMAN REGULAR 1,000 UNITS/10 ML VIAL SQ PRN (21:00)
[2016-09-26] VITALS (8 sets, daily range): BP systolic 109–138; BP diastolic 70–84; PULSE 73–101; RESP 18–20; TEMP 98.2–99.5; O2SAT 98–100
[2016-09-26] MEDS: SODIUM CHLOR 0.9% 1000 ML INJ 1,000 ML IV SCH ×2 (00:45→12:43)
[2016-09-26] MEDS: AMANTADINE HCL SOLN 100 MG/10 ML UDC PO SCH ×2 (07:00→12:00)
[2016-09-26] MEDS: CHLORHEXIDINE 0.12% (ORAL KIT) 15 ML CUP MT SCH ×2 (08:00→20:00)
[2016-09-26] MEDS: SODIUM CHLORIDE 0.9% FLUSH 5 ML FLUSH IVF SCH ×2 (08:26→21:00)
[2016-09-26] MEDS: FAMOTIDINE 20 MG TAB PO SCH ×2 (08:27→21:00)
[2016-09-26] MEDS: ASPIRIN 325 MG TAB PO SCH (08:27)
[2016-09-26] MEDS: BACITRACIN TOP OINT 15 GM TUBE TOP SCH ×2 (08:27→21:00)
[2016-09-26] MEDS ORDERED: ceFAZolin INJ 1,000 MG VIAL IV ONE (10:41)
[2016-09-26] MEDS ORDERED: PROPOFOL 200 MG/20 ML AMP IV PUSH ONE (11:07)
[2016-09-26] MEDS ORDERED: *LABETALOL HCL 100 MG/20 ML VIAL PERIprocedural Use ONLY ONE (11:34)
[2016-09-26] MEDS ORDERED: DO NOT ADM ANY ANTICOAGULANT DRUGS PRN (11:45)
--- NOTE | 2016-09-26 12:09 | HHI.PR ---
Neuropsych Emotional Emotional: UnabletoAssess: Emotional, Anxious/Fearful, Depressed/Sad, Hostile/ Resentful, Irritable/Angry/Frustrate, Labile, Constricted/Blunted Behavior Behavior: Moderate: Impulsive/Agitated, Unable to Asses: Behavior Cognitive Cognitive: Severe: Cognitive, Attention/Concentration, Confused/Orientation, Insight/Awareness, Judgement/Problem-Solving, Memory Progress Notes/Response to Tx Contents of Sessions: Adjustment, Level of Consciousness Time with Patient: 15 minutes Premorbid psychological status Premorbid Cognitive, Emotional and Behavioral Status: Unable to Assess. The patient has no family present to discuss his baseline status. Behavioral Reactions of Patient and Family/Support System: Unable to Assess. No family present. Emotional/Behavioral Status of Patient and Family/Support System: Unable to Assess. Pertinent issues, if appropriate to this patients clinical care, are described in detail above. Maximizing acute care outcome It is recommended that the patient be monitored for emergent behavioral impulsivity as the medical condition evolves. This patients neuropathological challenges may limit their rehabilitation potential going forward, and these challenges will require specialized therapeutic skills to maximize outcome. Anticipated Problems Ongoing areas of concern will include behavioral impulsivity, lack of insight and judgment, which is expected to improve with time and treatment. Treatment Plan This clinician will continue to follow with you throughout the course of this patients rehabilitation treatment, and I will be available to meet with the patients family/support system to facilitate their understanding and the ongoing care of their family member. The goals of neuropsychological intervention shall be both educational and supportive to the family/support system as is deemed clinically appropriate. [facility] Level: IV:Confused/Agitated-maximal assist Impression This patient has suffered a very severe traumatic brain injury with expected severe residual neurocognitive impairments. Diagnosis: (1) Major neurocognitive disorder as late effect of traumatic brain injury with behavioral disturbance Status: Acute Progress Note Narrative Ongoing follow-up of patient seen during daily trauma rounds. This is day 39 post injury. The patient pulled his NGT despite being placed in restraints, and is now awake and alert, and reportedly vocalizing somewhat. It is note that this patient has been receiving Amantadine 150 mg @ 0700 and 1200 (not the past two days however). Neurobehaviorally, these restless and agitated behaviors are an improvement, and he has now progressed to [place] IV. I will continue to follow. Hector Garrett PhD Sep 26, 2016 12:09
[2016-09-26] MEDS: ENOXAPARIN SODIUM 40 MG/0.4 ML SYRINGE SQ SCH (12:40)
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
[2016-09-26] MEDS: MISCELLANEOUS NURSING INFORMATION SCH (21:00)
[2016-09-27] VITALS (9 sets, daily range): BP systolic 93–137; BP diastolic 55–82; PULSE 48–92; RESP 18–20; TEMP 97.3–99; O2SAT 95–100
[2016-09-27] MEDS: SODIUM CHLOR 0.9% 1000 ML INJ 1,000 ML IV SCH ×2 (01:45→14:59)
[2016-09-27] MEDS: AMANTADINE HCL SOLN 100 MG/10 ML UDC PO SCH ×2 (05:57→11:30)
[2016-09-27] MEDS: CHLORHEXIDINE 0.12% (ORAL KIT) 15 ML CUP MT SCH ×2 (08:00→20:00)
[2016-09-27] MEDS: FAMOTIDINE 20 MG TAB PO SCH ×2 (08:44→21:00)
[2016-09-27] MEDS: ASPIRIN 325 MG TAB PO SCH (08:44)
[2016-09-27] MEDS: SODIUM CHLORIDE 0.9% FLUSH 5 ML FLUSH IVF SCH ×2 (08:45→21:00)
[2016-09-27] MEDS: BACITRACIN TOP OINT 15 GM TUBE TOP SCH ×2 (08:45→21:00)
[2016-09-27] MEDS: MISCELLANEOUS NURSING INFORMATION SCH ×2 (09:00→21:00)
[2016-09-27 09:08] LABS: AUTOMATED NEUTROPHIL # 8.4 TH/MM3 (1.8-7.7); BASOPHIL # 0.1 TH/MM3 (0-0.2); BASOPHIL % 0.9 % (0.0-2.0); EOSINOPHIL # 0.3 TH/MM3 (0-0.4); EOSINOPHIL % 2.4 % (0.0-4.0); HEMATOCRIT 35.9 % (39.0-51.0); HEMO FLAGS DIFF FINAL; LYMPH % 16.7 % (9.0-44.0); LYMPHOCYTE # 1.9 TH/MM3 (1.0-4.8); MEAN CELL VOLUME 82.8 FL (80.0-100.0); MEAN CORPUSCULAR HEMOGLOBIN 26.5 PG (27.0-34.0); PLATELET COUNT 335 TH/MM3 (150-450); RED BLOOD COUNT 4.34 MIL/MM3 (4.50-5.90); RED CELL DISTRIBUTION WIDTH 15.2 % (11.6-17.2); WHITE BLOOD COUNT 11.4 TH/MM3 (4.0-11.0)
[2016-09-27 09:41] LABS: BICARBONATE 27.6 MEQ/L (21.0-32.0)
[2016-09-27] MEDS: ENOXAPARIN SODIUM 40 MG/0.4 ML SYRINGE SQ SCH (11:29)
--- NOTE | 2016-09-27 11:31 | HHI.PR ---
Neuropsych Emotional Emotional: UnabletoAssess: Emotional, Anxious/Fearful, Depressed/Sad, Hostile/ Resentful, Irritable/Angry/Frustrate, Labile, Constricted/Blunted Behavior Behavior: Moderate: Impulsive/Agitated Cognitive Cognitive: Severe: Cognitive, Attention/Concentration, Confused/Orientation, Insight/Awareness, Judgement/Problem-Solving, Memory Progress Notes/Response to Tx Contents of Sessions: Adjustment, Level of Consciousness Time with Patient: 30 minutes Premorbid psychological status Premorbid Cognitive, Emotional and Behavioral Status: Unable to Assess. The patient has no family present to discuss his baseline status. Behavioral Reactions of Patient and Family/Support System: Unable to Assess. No family present. Emotional/Behavioral Status of Patient and Family/Support System: Unable to Assess. Pertinent issues, if appropriate to this patients clinical care, are described in detail above. Maximizing acute care outcome It is recommended that the patient be monitored for emergent behavioral impulsivity as the medical condition evolves. This patients neuropathological challenges may limit their rehabilitation potential going forward, and these challenges will require specialized therapeutic skills to maximize outcome. Anticipated Problems Ongoing areas of concern will include behavioral impulsivity, lack of insight and judgment, which is expected to improve with time and treatment. Treatment Plan This clinician will continue to follow with you throughout the course of this patients rehabilitation treatment, and I will be available to meet with the patients family/support system to facilitate their understanding and the ongoing care of their family member. The goals of neuropsychological intervention shall be both educational and supportive to the family/support system as is deemed clinically appropriate. [facility] Level: IV:Confused/Agitated-maximal assist Impression This patient has suffered a very severe traumatic brain injury with expected severe residual neurocognitive impairments. Diagnosis: (1) Major neurocognitive disorder as late effect of traumatic brain injury with behavioral disturbance Status: Acute Progress Note Narrative Ongoing follow-up of patient seen during daily trauma rounds. This is day 40 post injury. He is s/p PEG placement given his increased restlessness and impulsivity resulted in his pulling his NG tube despite restraints. Today, he was seen OOB in a chair. He was awake, alert, following some commands but not consistently. Nursing reported that he is more restless than agitated, which was consistent with my observations today. He remains a Rancho IV. I will continue to follow. Hector Garrett PhD Sep 27, 2016 11:31
[2016-09-27] MEDS ORDERED: POTASSIUM CHLORIDE 25 MEQ EFFERVESCENT TAB PO ONE (13:00)
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
[2016-09-28] VITALS (9 sets, daily range): BP systolic 96–134; BP diastolic 53–86; PULSE 50–95; RESP 16–20; TEMP 96.4–98.8; O2SAT 92–100
[2016-09-28] MEDS: SODIUM CHLOR 0.9% 1000 ML INJ 1,000 ML IV SCH ×2 (02:45→11:34)
[2016-09-28] MEDS: AMANTADINE HCL SOLN 100 MG/10 ML UDC PO SCH ×2 (06:25→12:01)
[2016-09-28] MEDS: CHLORHEXIDINE 0.12% (ORAL KIT) 15 ML CUP MT SCH ×2 (08:00→20:00)
[2016-09-28] MEDS: SODIUM CHLORIDE 0.9% FLUSH 5 ML FLUSH IVF SCH ×2 (08:36→21:00)
[2016-09-28] MEDS: MISCELLANEOUS NURSING INFORMATION SCH (08:44)
[2016-09-28] MEDS: FAMOTIDINE 20 MG TAB PO SCH ×2 (08:53→21:00)
[2016-09-28] MEDS: ENOXAPARIN SODIUM 40 MG/0.4 ML SYRINGE SQ SCH (08:54)
[2016-09-28] MEDS: ASPIRIN 325 MG TAB PO SCH (08:54)
[2016-09-28] MEDS: BACITRACIN TOP OINT 15 GM TUBE TOP SCH ×2 (08:54→21:00)
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
[2016-09-29] VITALS (8 sets, daily range): BP systolic 100–121; BP diastolic 58–80; PULSE 82–100; RESP 16–20; TEMP 97.2–99.5; O2SAT 95–100
[2016-09-29] MEDS: AMANTADINE HCL SOLN 100 MG/10 ML UDC PO SCH ×2 (07:24→11:21)
[2016-09-29] MEDS: MISCELLANEOUS NURSING INFORMATION SCH (07:38)
[2016-09-29] MEDS: CHLORHEXIDINE 0.12% (ORAL KIT) 15 ML CUP MT SCH ×2 (08:00→20:00)
[2016-09-29] MEDS: FAMOTIDINE 20 MG TAB PO SCH ×2 (08:34→20:05)
[2016-09-29] MEDS: SODIUM CHLORIDE 0.9% FLUSH 5 ML FLUSH IVF SCH ×2 (08:34→20:05)
[2016-09-29] MEDS: ASPIRIN 325 MG TAB PO SCH (08:35)
[2016-09-29] MEDS: BACITRACIN TOP OINT 15 GM TUBE TOP SCH ×2 (08:35→20:06)
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
[2016-09-29] MEDS: ENOXAPARIN SODIUM 40 MG/0.4 ML SYRINGE SQ SCH (11:20)
[2016-09-30] VITALS (8 sets, daily range): BP systolic 130–149; BP diastolic 75–84; PULSE 68–90; RESP 20; TEMP 96.5–99.4; O2SAT 96–99
[2016-09-30] MEDS: AMANTADINE HCL SOLN 100 MG/10 ML UDC PO SCH ×2 (05:35→11:01)
[2016-09-30] MEDS: CHLORHEXIDINE 0.12% (ORAL KIT) 15 ML CUP MT SCH ×2 (08:00→20:00)
[2016-09-30] MEDS: SODIUM CHLORIDE 0.9% FLUSH 5 ML FLUSH IVF SCH ×2 (09:00→21:27)
[2016-09-30] MEDS: BACITRACIN TOP OINT 15 GM TUBE TOP SCH ×2 (09:00→21:28)
[2016-09-30] MEDS: FAMOTIDINE 20 MG TAB PO SCH ×2 (11:01→21:27)
[2016-09-30] MEDS: ENOXAPARIN SODIUM 40 MG/0.4 ML SYRINGE SQ SCH (11:01)
[2016-09-30] MEDS: ASPIRIN 325 MG TAB PO SCH (11:02)
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
--- NOTE | 2016-09-30 18:53 | RADRPT ---
EXAM DATE/TIME: 09/30/2016 13:51 [place] COMPARISON: CT THORAX W CONTRAST, August 18, 2016, 6:20. INDICATIONS : Cough. MEDICAL HISTORY : None. SURGICAL HISTORY : None. ENCOUNTER: Initial ACUITY: 1 day PAIN SCORE: Non-responsive. LOCATION: Bilateral chest FINDINGS: A single view of the chest demonstrates tracheostomy in satisfactory position. Minimal basal atelecta sis. No effusion. No pneumothorax. Again seen are bilateral subacute scapular fractures. CONCLUSION: 1. Tracheostomy of the fracture position. Minimal basal atelectasis. Chon Callejas MD on September 30, 2016 at 18:49 Board Certified Radiologist. This report was verified electronically.
[2016-09-30] MEDS: ACETAMINOPHEN 325 MG TAB PO PRN (21:26)
[2016-10-01] VITALS (10 sets, daily range): BP systolic 123–137; BP diastolic 73–87; PULSE 80–91; RESP 18–20; TEMP 97–98.9; O2SAT 97–100
[2016-10-01] MEDS: AMANTADINE HCL SOLN 100 MG/10 ML UDC PO SCH ×2 (06:35→12:41)
[2016-10-01] MEDS: CHLORHEXIDINE 0.12% (ORAL KIT) 15 ML CUP MT SCH ×2 (08:00→20:00)
[2016-10-01] MEDS: BACITRACIN TOP OINT 15 GM TUBE TOP SCH ×2 (09:31→21:00)
[2016-10-01] MEDS: ASPIRIN 325 MG TAB PO SCH (09:31)
[2016-10-01] MEDS: FAMOTIDINE 20 MG TAB PO SCH ×2 (09:31→22:47)
[2016-10-01] MEDS: SODIUM CHLORIDE 0.9% FLUSH 5 ML FLUSH IVF SCH ×2 (09:38→21:00)
[2016-10-01 10:11] LABS: AUTOMATED NEUTROPHIL # 7.8 TH/MM3 (1.8-7.7); BASOPHIL # 0.1 TH/MM3 (0-0.2); BASOPHIL % 0.9 % (0.0-2.0); EOSINOPHIL # 0.3 TH/MM3 (0-0.4); EOSINOPHIL % 3.3 % (0.0-4.0); HEMATOCRIT 37.4 % (39.0-51.0); HEMO FLAGS DIFF FINAL; LYMPH % 12.8 % (9.0-44.0); LYMPHOCYTE # 1.3 TH/MM3 (1.0-4.8); MEAN CELL VOLUME 83.5 FL (80.0-100.0); MEAN CORPUSCULAR HEMOGLOBIN 25.9 PG (27.0-34.0); MONO % 6.5 % (0.0-8.0); NEUT % 76.5 % (16.0-70.0); PLATELET COUNT 350 TH/MM3 (150-450); RED BLOOD COUNT 4.48 MIL/MM3 (4.50-5.90); RED CELL DISTRIBUTION WIDTH 14.6 % (11.6-17.2); WHITE BLOOD COUNT 10.2 TH/MM3 (4.0-11.0)
[2016-10-01 10:30] LABS: ANION GAP 12 MEQ/L (5-15); AST (GOT) 38 U/L (15-37); BICARBONATE 25.8 MEQ/L (21.0-32.0); BLOOD UREA NITROGEN 10 MG/DL (7-18); CHLORIDE 105 MEQ/L (98-107); GLOMERULAR FILTRATION RATE 172 ML/MIN (>89); POTASSIUM 3.5 MEQ/L (3.5-5.1); SODIUM (NA) 143 MEQ/L (136-145)
[2016-10-01 10:31] LABS: ALT (GPT) 81 U/L (12-78)
[2016-10-01 10:34] LABS: ALKALINE PHOSPHATASE 165 U/L (45-117); TOTAL BILIRUBIN ADULT 0.2 MG/DL (0.2-1.0)
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
[2016-10-01] MEDS: ENOXAPARIN SODIUM 40 MG/0.4 ML SYRINGE SQ SCH (12:40)
[2016-10-01] MEDS: LACTULOSE SYRUP 20 GM/30 ML CUP PO SCH ×2 (16:40→22:48)
[2016-10-01] MEDS: MISCELLANEOUS NURSING INFORMATION SCH (21:00)
[2016-10-01] MEDS: DOCUSATE SODIUM 100 MG/10 ML UDC PO SCH (22:47)
[2016-10-02] VITALS (9 sets, daily range): BP systolic 104–133; BP diastolic 79–94; PULSE 87–103; RESP 16–20; TEMP 98.3–99; O2SAT 96–100
[2016-10-02] MEDS: AMANTADINE HCL SOLN 100 MG/10 ML UDC PO SCH ×2 (06:50→14:40)
[2016-10-02] MEDS: CHLORHEXIDINE 0.12% (ORAL KIT) 15 ML CUP MT SCH ×2 (08:00→20:00)
[2016-10-02] MEDS: SODIUM CHLORIDE 0.9% FLUSH 5 ML FLUSH IVF SCH ×2 (09:00→20:41)
[2016-10-02] MEDS: LACTULOSE SYRUP 20 GM/30 ML CUP PO SCH ×2 (10:22→20:40)
[2016-10-02] MEDS: FAMOTIDINE 20 MG TAB PO SCH ×2 (10:22→20:40)
[2016-10-02] MEDS: DOCUSATE SODIUM 100 MG/10 ML UDC PO SCH ×2 (10:22→20:40)
[2016-10-02] MEDS: ASPIRIN 325 MG TAB PO SCH (10:22)
[2016-10-02] MEDS: BACITRACIN TOP OINT 15 GM TUBE TOP SCH ×2 (10:31→20:41)
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
[2016-10-02] MEDS: ENOXAPARIN SODIUM 40 MG/0.4 ML SYRINGE SQ SCH (14:40)
[2016-10-02] MEDS: MISCELLANEOUS NURSING INFORMATION SCH (20:28)
[2016-10-02] MEDS: ACETAMINOPHEN 325 MG TAB PO PRN (20:41)
[2016-10-03] VITALS (12 sets, daily range): BP systolic 113–141; BP diastolic 76–87; PULSE 74–101; RESP 16–18; TEMP 96–99.2; O2SAT 95–100
[2016-10-03] MEDS: AMANTADINE HCL SOLN 100 MG/10 ML UDC PO SCH ×2 (05:27→11:58)
[2016-10-03] MEDS: SODIUM CHLORIDE 0.9% FLUSH 5 ML FLUSH IVF SCH ×2 (10:01→22:13)
[2016-10-03] MEDS: DOCUSATE SODIUM 100 MG/10 ML UDC PO SCH ×2 (10:01→22:14)
[2016-10-03] MEDS: CHLORHEXIDINE 0.12% (ORAL KIT) 15 ML CUP MT SCH ×2 (10:01→22:14)
[2016-10-03] MEDS: LACTULOSE SYRUP 20 GM/30 ML CUP PO SCH ×2 (10:01→22:13)
[2016-10-03] MEDS: MISCELLANEOUS NURSING INFORMATION SCH (10:01)
[2016-10-03] MEDS: ASPIRIN 325 MG TAB PO SCH (10:01)
[2016-10-03] MEDS: BACITRACIN TOP OINT 15 GM TUBE TOP SCH ×2 (10:02→22:14)
[2016-10-03] MEDS: FAMOTIDINE 20 MG TAB PO SCH ×2 (10:02→22:04)
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
[2016-10-03] MEDS: ENOXAPARIN SODIUM 40 MG/0.4 ML SYRINGE SQ SCH (11:58)
--- NOTE | 2016-10-03 13:53 | HHI.PR ---
Neuropsych Behavior Behavior: Mild: Cooperative w/ Treatment, Moderate: Behavior Cognitive Cognitive: Severe: Cognitive, Attention/Concentration, Confused/Orientation, Insight/Awareness, Judgement/Problem-Solving, Memory Progress Notes/Response to Tx Contents of Sessions: Adjustment Time with Patient: 30 minutes Premorbid psychological status Premorbid Cognitive, Emotional and Behavioral Status: Unable to Assess. The patient has no family present to discuss his baseline status. Behavioral Reactions of Patient and Family/Support System: Unable to Assess. No family present. Emotional/Behavioral Status of Patient and Family/Support System: Unable to Assess. Pertinent issues, if appropriate to this patients clinical care, are described in detail above. Maximizing acute care outcome It is recommended that the patient be monitored for emergent behavioral impulsivity as the medical condition evolves. This patients neuropathological challenges may limit their rehabilitation potential going forward, and these challenges will require specialized therapeutic skills to maximize outcome. Anticipated Problems Ongoing areas of concern will include behavioral impulsivity, lack of insight and judgment, which is expected to improve with time and treatment. Treatment Plan This clinician will continue to follow with you throughout the course of this patients rehabilitation treatment, and I will be available to meet with the patients family/support system to facilitate their understanding and the ongoing care of their family member. The goals of neuropsychological intervention shall be both educational and supportive to the family/support system as is deemed clinically appropriate. [facility] Level: V:Confused-non agitated Impression This patient has suffered a very severe traumatic brain injury with expected severe residual neurocognitive impairments. Diagnosis: (1) Major neurocognitive disorder as late effect of traumatic brain injury with behavioral disturbance Status: Acute Progress Note Narrative Ongoing follow-up of patient seen during daily trauma rounds. This is day 46 post injury. The patient was sitting in a chair, in restraints, but much more awake and alert. He initiated conversation with me asking me to put him back in bed, and this is a considerable improvement. The patient remains on Amantadine 150 q0700 and 1200. This patient appears to be at [place] I will continue to follow. Hector Garrett PhD Oct 03, 2016 13:53
[2016-10-04] VITALS (9 sets, daily range): BP systolic 115–137; BP diastolic 77–85; PULSE 84–96; RESP 17–19; TEMP 95.7–98.4; O2SAT 96–100
[2016-10-04] MEDS: AMANTADINE HCL SOLN 100 MG/10 ML UDC PO SCH ×2 (06:06→12:38)
[2016-10-04] MEDS: LACTULOSE SYRUP 20 GM/30 ML CUP PO SCH ×2 (09:12→21:00)
[2016-10-04] MEDS: CHLORHEXIDINE 0.12% (ORAL KIT) 15 ML CUP MT SCH ×2 (09:12→20:00)
[2016-10-04] MEDS: BACITRACIN TOP OINT 15 GM TUBE TOP SCH ×2 (09:12→21:00)
[2016-10-04] MEDS: FAMOTIDINE 20 MG TAB PO SCH ×2 (09:12→21:00)
[2016-10-04] MEDS: SODIUM CHLORIDE 0.9% FLUSH 5 ML FLUSH IVF SCH ×2 (09:12→21:00)
[2016-10-04] MEDS: DOCUSATE SODIUM 100 MG/10 ML UDC PO SCH ×2 (09:12→21:00)
[2016-10-04] MEDS: ASPIRIN 325 MG TAB PO SCH (09:12)
[2016-10-04] MEDS: MISCELLANEOUS NURSING INFORMATION SCH (09:36)
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
--- NOTE | 2016-10-04 10:26 | RADRPT ---
EXAM DATE/TIME: 10/04/2016 09:52 [facility] COMPARISON: CHEST SINGLE AP, September 30, 2016, 13:51. INDICATIONS : Post op surgery MEDICAL HISTORY : None. SURGICAL HISTORY : left tib/fib surgery ENCOUNTER: Initial ACUITY: 1 month PAIN SCORE: Non-responsive. LOCATION: Left tib/fib FINDINGS: The examination demonstrates rodding of the patient's distal tibial fracture. As plate across the dis slime fibula. Note is made of fracture immediately above the plate within the fibula. CONCLUSION: 1. Patient's tibial fracture post rodding. 2. There is a plate on the fibula. There is a fracture immediately above it. Cristian Mendenhall MD on October 04, 2016 at 10:23 Board Certified Radiologist. This report was verified electronically.
--- NOTE | 2016-10-04 10:26 | RADRPT ---
EXAM DATE/TIME: 10/04/2016 09:58 [facility] COMPARISON: TIBIA/FIBULA LEFT (AP/LAT), October 04, 2016, 9:52. INDICATIONS : Fracture. MEDICAL HISTORY : None. SURGICAL HISTORY : None. ENCOUNTER: Initial ACUITY: 1 month PAIN SCORE: Non-responsive. LOCATION: Left shoulder FINDINGS: Multiple view examination of the left shoulder demonstrates no evidence of fracture or dislocation. The glenohumeral and acromioclavicular joints are maintained. There is normal range of motion betwee n internal and external rotation. Bony mineralization is normal. CONCLUSION: 1. No acute bony abnormality is identified. Cristian Mendenhall MD on October 04, 2016 at 10:24 Board Certified Radiologist. This report was verified electronically.
--- NOTE | 2016-10-04 10:27 | RADRPT ---
EXAM DATE/TIME: 10/04/2016 10:05 [facility] COMPARISON: SHOULDER LEFT COMPLETE (>2VWS), October 04, 2016, 9:58. INDICATIONS : Fracture. MEDICAL HISTORY : None. SURGICAL HISTORY : None. ENCOUNTER: Initial ACUITY: 1 month PAIN SCORE: Non-responsive. LOCATION: Bilateral pelvis FINDINGS: The examination demonstrates minimally displaced fractures involving the superior and inferior ischia l ramus on the left. The remainder of the osseous structures visualized appear intact. CONCLUSION: 1. Fracture of the superior and inferior ischial ramus on the left. Cristian Mendenhall MD on October 04, 2016 at 10:25 Board Certified Radiologist. This report was verified electronically.
[2016-10-04] MEDS: ENOXAPARIN SODIUM 40 MG/0.4 ML SYRINGE SQ SCH (12:38)
--- NOTE | 2016-10-04 12:38 | HHI.PR ---
Neuropsych Emotional Emotional: Intact: Anxious/Fearful, Depressed/Sad, UnabletoAssess: Emotional Behavior Behavior: Mild: Cooperative w/ Treatment Cognitive Cognitive: Severe: Cognitive, Attention/Concentration, Confused/Orientation, Insight/Awareness, Judgement/Problem-Solving, Memory Progress Notes/Response to Tx Contents of Sessions: Adjustment Time with Patient: 15 minutes Premorbid psychological status Premorbid Cognitive, Emotional and Behavioral Status: Unable to Assess. The patient has no family present to discuss his baseline status. Behavioral Reactions of Patient and Family/Support System: Unable to Assess. No family present. Emotional/Behavioral Status of Patient and Family/Support System: Unable to Assess. Pertinent issues, if appropriate to this patients clinical care, are described in detail above. Maximizing acute care outcome It is recommended that the patient be monitored for emergent behavioral impulsivity as the medical condition evolves. This patients neuropathological challenges may limit their rehabilitation potential going forward, and these challenges will require specialized therapeutic skills to maximize outcome. Anticipated Problems Ongoing areas of concern will include behavioral impulsivity, lack of insight and judgment, which is expected to improve with time and treatment. Treatment Plan This clinician will continue to follow with you throughout the course of this patients rehabilitation treatment, and I will be available to meet with the patients family/support system to facilitate their understanding and the ongoing care of their family member. The goals of neuropsychological intervention shall be both educational and supportive to the family/support system as is deemed clinically appropriate. [facility] Level: V:Confused-non agitated Impression This patient has suffered a very severe traumatic brain injury with expected severe residual neurocognitive impairments. Diagnosis: (1) Major neurocognitive disorder as late effect of traumatic brain injury with behavioral disturbance Status: Acute Progress Note Narrative Ongoing follow-up of patient seen during daily trauma rounds. This is day 47 post injury. The patient continues to show improvement, mouthing words occasionally to direct self-cares. The patient remains on Amantadine 150 q0700 and 1200. He is presently at [facility]. I will continue to follow. Hector Garrett PhD Oct 04, 2016 12:38
[2016-10-05] VITALS (8 sets, daily range): BP systolic 134–159; BP diastolic 73–92; PULSE 81–101; RESP 17–20; TEMP 97.2–98.2; O2SAT 96–100
[2016-10-05] MEDS: AMANTADINE HCL SOLN 100 MG/10 ML UDC PO SCH ×2 (06:08→16:24)
[2016-10-05] MEDS: CHLORHEXIDINE 0.12% (ORAL KIT) 15 ML CUP MT SCH ×2 (08:00→20:00)
[2016-10-05] MEDS: ASPIRIN 325 MG TAB PO SCH (08:19)
[2016-10-05] MEDS: DOCUSATE SODIUM 100 MG/10 ML UDC PO SCH ×2 (08:20→21:00)
[2016-10-05] MEDS: FAMOTIDINE 20 MG TAB PO SCH ×2 (08:20→21:39)
[2016-10-05] MEDS: SODIUM CHLORIDE 0.9% FLUSH 5 ML FLUSH IVF SCH ×2 (08:22→21:00)
[2016-10-05] MEDS: BACITRACIN TOP OINT 15 GM TUBE TOP SCH ×2 (08:22→21:00)
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
[2016-10-05] MEDS: ENOXAPARIN SODIUM 40 MG/0.4 ML SYRINGE SQ SCH (16:24)
[2016-10-06] VITALS (9 sets, daily range): BP systolic 106–117; BP diastolic 68–83; PULSE 58–107; RESP 20; TEMP 97.4–98.6; O2SAT 96–98
[2016-10-06] MEDS: AMANTADINE HCL SOLN 100 MG/10 ML UDC PO SCH ×2 (06:01→12:37)
[2016-10-06] MEDS: CHLORHEXIDINE 0.12% (ORAL KIT) 15 ML CUP MT SCH ×2 (08:00→20:00)
[2016-10-06] MEDS: BACITRACIN TOP OINT 15 GM TUBE TOP SCH ×2 (09:00→22:25)
[2016-10-06] MEDS: SODIUM CHLORIDE 0.9% FLUSH 5 ML FLUSH IVF SCH ×2 (09:00→21:00)
[2016-10-06] MEDS: ASPIRIN 325 MG TAB PO SCH (10:51)
[2016-10-06] MEDS: FAMOTIDINE 20 MG TAB PO SCH ×2 (10:51→22:23)
[2016-10-06] MEDS: DOCUSATE SODIUM 100 MG/10 ML UDC PO SCH ×2 (10:51→22:23)
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
[2016-10-06] MEDS: ZINC OXIDE 20% OINT 30 GM TUBE TOPICAL SCH ×2 (12:30→22:36)
[2016-10-06] MEDS: ENOXAPARIN SODIUM 40 MG/0.4 ML SYRINGE SQ SCH (12:37)
[2016-10-06] MEDS: RESP: ALBUTEROL 2.5 MG/IPRATROPIUM 0.5 MG NEB (PRN) NEB ×2 (14:13→18:39)
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
--- NOTE | 2016-10-06 15:28 | HHI.PR ---
Neuropsych Progress Notes/Response to Tx Contents of Sessions: Adjustment, Level of Consciousness Time with Patient: 15 minutes Premorbid psychological status Premorbid Cognitive, Emotional and Behavioral Status: Unable to Assess. The patient has no family present to discuss his baseline status. Behavioral Reactions of Patient and Family/Support System: Unable to Assess. No family present. Emotional/Behavioral Status of Patient and Family/Support System: Unable to Assess. Pertinent issues, if appropriate to this patients clinical care, are described in detail above. Maximizing acute care outcome It is recommended that the patient be monitored for emergent behavioral impulsivity as the medical condition evolves. This patients neuropathological challenges may limit their rehabilitation potential going forward, and these challenges will require specialized therapeutic skills to maximize outcome. Anticipated Problems Ongoing areas of concern will include behavioral impulsivity, lack of insight and judgment, which is expected to improve with time and treatment. Treatment Plan This clinician will continue to follow with you throughout the course of this patients rehabilitation treatment, and I will be available to meet with the patients family/support system to facilitate their understanding and the ongoing care of their family member. The goals of neuropsychological intervention shall be both educational and supportive to the family/support system as is deemed clinically appropriate. [facility] Level: V:Confused-non agitated Impression This patient has suffered a very severe traumatic brain injury with expected severe residual neurocognitive impairments. Diagnosis: (1) Major neurocognitive disorder as late effect of traumatic brain injury with behavioral disturbance Status: Acute Progress Note Narrative Ongoing follow-up of patient seen during daily trauma rounds. This is day 49 post injury. This patient has made significant neurobehavioral improvement, and is now awake, interactive and requesting to be allowed to smoke. He remains on Amantadine 150 q0700 and 1200. He is now a [place]. I will continue to follow. Hector Garrett PhD Oct 06, 2016 3:28 pm
[2016-10-06] MEDS: MISCELLANEOUS NURSING INFORMATION SCH (21:00)
[2016-10-07] VITALS (9 sets, daily range): BP systolic 110–153; BP diastolic 59–89; PULSE 85–114; RESP 18–20; TEMP 95.9–98; O2SAT 94–99
[2016-10-07] MEDS: AMANTADINE HCL SOLN 100 MG/10 ML UDC PO SCH ×2 (06:31→12:13)
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
[2016-10-07] MEDS: MISCELLANEOUS NURSING INFORMATION SCH ×2 (09:00→21:00)
[2016-10-07] MEDS: SODIUM CHLORIDE 0.9% FLUSH 5 ML FLUSH IVF SCH ×2 (09:00→21:00)
[2016-10-07] MEDS: ASPIRIN 325 MG TAB PO SCH (10:04)
[2016-10-07] MEDS: DOCUSATE SODIUM 100 MG/10 ML UDC PO SCH ×2 (10:04→23:37)
[2016-10-07] MEDS: FAMOTIDINE 20 MG TAB PO SCH ×2 (10:04→23:37)
[2016-10-07] MEDS: ZINC OXIDE 20% OINT 30 GM TUBE TOPICAL SCH ×2 (10:04→23:38)
[2016-10-07] MEDS: BACITRACIN TOP OINT 15 GM TUBE TOP SCH ×2 (10:05→23:38)
[2016-10-07] MEDS: CHLORHEXIDINE 0.12% (ORAL KIT) 15 ML CUP MT SCH ×2 (10:06→20:00)
[2016-10-07] MEDS: ENOXAPARIN SODIUM 40 MG/0.4 ML SYRINGE SQ SCH (12:13)
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
[2016-10-08] VITALS (9 sets, daily range): BP systolic 103–130; BP diastolic 63–86; PULSE 51–96; RESP 18–20; TEMP 96.7–98.7; O2SAT 95–100
[2016-10-08] MEDS: AMANTADINE HCL SOLN 100 MG/10 ML UDC PO SCH ×2 (05:28→11:49)
[2016-10-08] MEDS: CHLORHEXIDINE 0.12% (ORAL KIT) 15 ML CUP MT SCH ×2 (08:00→20:00)
[2016-10-08] MEDS: MISCELLANEOUS NURSING INFORMATION SCH ×2 (09:00→21:00)
[2016-10-08] MEDS: BACITRACIN TOP OINT 15 GM TUBE TOP SCH ×2 (09:00→21:05)
[2016-10-08] MEDS: SODIUM CHLORIDE 0.9% FLUSH 5 ML FLUSH IVF SCH ×2 (09:00→21:00)
[2016-10-08] MEDS: DOCUSATE SODIUM 100 MG/10 ML UDC PO SCH ×2 (09:53→21:04)
[2016-10-08] MEDS: FAMOTIDINE 20 MG TAB PO SCH ×2 (09:53→21:04)
[2016-10-08] MEDS: ASPIRIN 325 MG TAB PO SCH (09:53)
[2016-10-08] MEDS: ZINC OXIDE 20% OINT 30 GM TUBE TOPICAL SCH ×2 (09:54→21:00)
[2016-10-08] MEDS: ENOXAPARIN SODIUM 40 MG/0.4 ML SYRINGE SQ SCH (11:49)
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
[2016-10-08] MEDS: ACETAMINOPHEN 325 MG TAB PO PRN (16:00)
[2016-10-09] VITALS (9 sets, daily range): BP systolic 112–136; BP diastolic 80–83; PULSE 87–97; RESP 18–22; TEMP 97–99; O2SAT 97–100
[2016-10-09] MEDS: AMANTADINE HCL SOLN 100 MG/10 ML UDC PO SCH ×2 (05:44→12:20)
[2016-10-09] MEDS: CHLORHEXIDINE 0.12% (ORAL KIT) 15 ML CUP MT SCH ×2 (08:00→20:00)
[2016-10-09] MEDS: MISCELLANEOUS NURSING INFORMATION SCH ×2 (09:00→21:00)
[2016-10-09] MEDS: SODIUM CHLORIDE 0.9% FLUSH 5 ML FLUSH IVF SCH ×2 (09:00→21:00)
[2016-10-09] MEDS: DOCUSATE SODIUM 100 MG/10 ML UDC PO SCH ×2 (09:06→21:16)
[2016-10-09] MEDS: ASPIRIN 325 MG TAB PO SCH (09:07)
[2016-10-09] MEDS: FAMOTIDINE 20 MG TAB PO SCH ×2 (09:07→21:16)
[2016-10-09] MEDS: BACITRACIN TOP OINT 15 GM TUBE TOP SCH ×2 (09:09→21:15)
[2016-10-09] MEDS: ZINC OXIDE 20% OINT 30 GM TUBE TOPICAL SCH ×2 (09:09→21:15)
[2016-10-09 09:24] LABS: AUTOMATED NEUTROPHIL # 7.7 TH/MM3 (1.8-7.7); BASOPHIL % 0.5 % (0.0-2.0); EOSINOPHIL # 0.2 TH/MM3 (0-0.4); EOSINOPHIL % 2.1 % (0.0-4.0); HEMATOCRIT 39.6 % (39.0-51.0); HEMO FLAGS DIFF FINAL; LYMPH % 13.9 % (9.0-44.0); LYMPHOCYTE # 1.4 TH/MM3 (1.0-4.8); MEAN CELL VOLUME 81.8 FL (80.0-100.0); MEAN CORPUSCULAR HGB CONC 31.7 % (32.0-36.0); MONO % 6.4 % (0.0-8.0); NEUT % 77.1 % (16.0-70.0); PLATELET COUNT 424 TH/MM3 (150-450); RED BLOOD COUNT 4.84 MIL/MM3 (4.50-5.90); RED CELL DISTRIBUTION WIDTH 15.1 % (11.6-17.2)
[2016-10-09 09:48] LABS: BICARBONATE 29.5 MEQ/L (21.0-32.0); POTASSIUM 3.7 MEQ/L (3.5-5.1)
[2016-10-09] MEDS: ENOXAPARIN SODIUM 40 MG/0.4 ML SYRINGE SQ SCH (12:20)
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
[2016-10-10] VITALS (9 sets, daily range): BP systolic 109–134; BP diastolic 74–86; PULSE 48–97; RESP 18–20; TEMP 96.1–98.3; O2SAT 96–100
[2016-10-10] MEDS: AMANTADINE HCL SOLN 100 MG/10 ML UDC PO SCH ×2 (05:51→11:57)
[2016-10-10] MEDS: CHLORHEXIDINE 0.12% (ORAL KIT) 15 ML CUP MT SCH ×2 (08:00→20:00)
[2016-10-10] MEDS: SODIUM CHLORIDE 0.9% FLUSH 5 ML FLUSH IVF SCH ×2 (09:00→21:00)
[2016-10-10] MEDS: MISCELLANEOUS NURSING INFORMATION SCH (09:00)
[2016-10-10] MEDS: BACITRACIN TOP OINT 15 GM TUBE TOP SCH ×2 (09:34→21:00)
[2016-10-10] MEDS: ZINC OXIDE 20% OINT 30 GM TUBE TOPICAL SCH ×2 (09:35→21:00)
[2016-10-10] MEDS: ASPIRIN 325 MG TAB PO SCH (09:35)
[2016-10-10] MEDS: FAMOTIDINE 20 MG TAB PO SCH ×2 (09:35→23:01)
[2016-10-10] MEDS: DOCUSATE SODIUM 100 MG/10 ML UDC PO SCH ×2 (09:35→23:01)
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
[2016-10-10] MEDS: ENOXAPARIN SODIUM 40 MG/0.4 ML SYRINGE SQ SCH (11:56)
--- NOTE | 2016-10-10 12:56 | HHI.PR ---
Neuropsych Progress Notes/Response to Tx Contents of Sessions: Level of Consciousness Time with Patient: 15 minutes Premorbid psychological status Premorbid Cognitive, Emotional and Behavioral Status: Unable to Assess. The patient has no family present to discuss his baseline status. Behavioral Reactions of Patient and Family/Support System: Unable to Assess. No family present. Emotional/Behavioral Status of Patient and Family/Support System: Unable to Assess. Pertinent issues, if appropriate to this patients clinical care, are described in detail above. Maximizing acute care outcome It is recommended that the patient be monitored for emergent behavioral impulsivity as the medical condition evolves. This patients neuropathological challenges may limit their rehabilitation potential going forward, and these challenges will require specialized therapeutic skills to maximize outcome. Anticipated Problems Ongoing areas of concern will include behavioral impulsivity, lack of insight and judgment, which is expected to improve with time and treatment. Treatment Plan This clinician will continue to follow with you throughout the course of this patients rehabilitation treatment, and I will be available to meet with the patients family/support system to facilitate their understanding and the ongoing care of their family member. The goals of neuropsychological intervention shall be both educational and supportive to the family/support system as is deemed clinically appropriate. [facility] Level: IV:Confused/Agitated-maximal assist Impression This patient has suffered a very severe traumatic brain injury with expected severe residual neurocognitive impairments. Diagnosis: (1) Major neurocognitive disorder as late effect of traumatic brain injury with behavioral disturbance Status: Acute Progress Note Narrative Ongoing follow-up of patient seen during daily trauma rounds. This is day53 post injury. The patient is stable, awake, alert and following commands. He does not vocalize his responses but rather pantomimes for communication. He is a [place] V. I will continue to follow. Hector Garrett PhD Oct 10, 2016 12:56 pm
[2016-10-11] VITALS (10 sets, daily range): BP systolic 103–130; BP diastolic 74–91; PULSE 74–94; RESP 18–22; TEMP 97–98.3; O2SAT 95–99
[2016-10-11] MEDS: AMANTADINE HCL SOLN 100 MG/10 ML UDC PO SCH ×2 (05:05→12:13)
[2016-10-11] MEDS: CHLORHEXIDINE 0.12% (ORAL KIT) 15 ML CUP MT SCH ×2 (08:00→22:02)
--- NOTE | 2016-10-11 08:17 | HHI.PR ---
Neuropsych Behavior Behavior: Moderate: Impulsive/Agitated Cognitive Cognitive: Severe: Cognitive, Attention/Concentration, Confused/Orientation, Insight/Awareness, Judgement/Problem-Solving, Memory Progress Notes/Response to Tx Contents of Sessions: Adjustment, Level of Consciousness Time with Patient: 15 minutes Premorbid psychological status Premorbid Cognitive, Emotional and Behavioral Status: Unable to Assess. The patient has no family present to discuss his baseline status. Behavioral Reactions of Patient and Family/Support System: Unable to Assess. No family present. Emotional/Behavioral Status of Patient and Family/Support System: Unable to Assess. Pertinent issues, if appropriate to this patients clinical care, are described in detail above. Maximizing acute care outcome It is recommended that the patient be monitored for emergent behavioral impulsivity as the medical condition evolves. This patients neuropathological challenges may limit their rehabilitation potential going forward, and these challenges will require specialized therapeutic skills to maximize outcome. Anticipated Problems Ongoing areas of concern will include behavioral impulsivity, lack of insight and judgment, which is expected to improve with time and treatment. Treatment Plan This clinician will continue to follow with you throughout the course of this patients rehabilitation treatment, and I will be available to meet with the patients family/support system to facilitate their understanding and the ongoing care of their family member. The goals of neuropsychological intervention shall be both educational and supportive to the family/support system as is deemed clinically appropriate. [facility] Level: V:Confused-non agitated Impression This patient has suffered a very severe traumatic brain injury with expected severe residual neurocognitive impairments. Diagnosis: (1) Major neurocognitive disorder as late effect of traumatic brain injury with behavioral disturbance Status: Acute Progress Note Narrative Ongoing follow-up of patient seen during daily trauma rounds. This is day 54 post injury. The patient is awake, alert and follows commands, although he has impaired insight, awareness and judgment with behavioral impulsivity requiring the continued use of restraints to prevent him from pulling his tubes etc. We are working on d/cing his restraints depending on his level of impulsivity. He is oriented x 4. He remains on Amantadine 150 q0700 and 1200. He is a [place] V. I will continue to follow. Hector Garrett PhD Oct 11, 2016 8:17 am
[2016-10-11] MEDS: MISCELLANEOUS NURSING INFORMATION SCH ×2 (08:28→21:00)
[2016-10-11] MEDS: SODIUM CHLORIDE 0.9% FLUSH 5 ML FLUSH IVF SCH ×2 (09:00→21:00)
[2016-10-11] MEDS: DOCUSATE SODIUM 100 MG/10 ML UDC PO SCH ×2 (10:17→22:00)
[2016-10-11] MEDS: ASPIRIN 325 MG TAB PO SCH (10:18)
[2016-10-11] MEDS: FAMOTIDINE 20 MG TAB PO SCH ×2 (10:18→22:00)
[2016-10-11] MEDS: ZINC OXIDE 20% OINT 30 GM TUBE TOPICAL SCH ×2 (10:19→22:03)
[2016-10-11] MEDS: BACITRACIN TOP OINT 15 GM TUBE TOP SCH ×2 (10:19→22:02)
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
[2016-10-11] MEDS: ENOXAPARIN SODIUM 40 MG/0.4 ML SYRINGE SQ SCH (11:26)
[2016-10-11] MEDS: ACETAMINOPHEN 325 MG TAB PO PRN (22:00)
[2016-10-12] VITALS (8 sets, daily range): BP systolic 101–108; BP diastolic 67–76; PULSE 81–91; RESP 18–20; TEMP 97.3–99.8; O2SAT 93–99
[2016-10-12] MEDS: AMANTADINE HCL SOLN 100 MG/10 ML UDC PO SCH ×2 (05:58→12:56)
--- NOTE | 2016-10-12 08:12 | HHI.PR ---
Neuropsych Behavior Behavior: Mild: Cooperative w/ Treatment, Motivation, Moderate: Impulsive/ Agitated Cognitive Cognitive: Severe: Cognitive, Attention/Concentration, Confused/Orientation, Insight/Awareness, Judgement/Problem-Solving, Memory Progress Notes/Response to Tx Contents of Sessions: Adjustment, Level of Consciousness Time with Patient: 15 minutes Premorbid psychological status Premorbid Cognitive, Emotional and Behavioral Status: Unable to Assess. The patient has no family present to discuss his baseline status. Behavioral Reactions of Patient and Family/Support System: Unable to Assess. No family present. Emotional/Behavioral Status of Patient and Family/Support System: Unable to Assess. Pertinent issues, if appropriate to this patients clinical care, are described in detail above. Maximizing acute care outcome It is recommended that the patient be monitored for emergent behavioral impulsivity as the medical condition evolves. This patients neuropathological challenges may limit their rehabilitation potential going forward, and these challenges will require specialized therapeutic skills to maximize outcome. Anticipated Problems Ongoing areas of concern will include behavioral impulsivity, lack of insight and judgment, which is expected to improve with time and treatment. Treatment Plan This clinician will continue to follow with you throughout the course of this patients rehabilitation treatment, and I will be available to meet with the patients family/support system to facilitate their understanding and the ongoing care of their family member. The goals of neuropsychological intervention shall be both educational and supportive to the family/support system as is deemed clinically appropriate. [place] Level: V:Confused-non agitated Impression This patient has suffered a very severe traumatic brain injury with expected severe residual neurocognitive impairments. Diagnosis: (1) Major neurocognitive disorder as late effect of traumatic brain injury with behavioral disturbance Status: Acute Progress Note Narrative Ongoing follow-up of patient seen during daily trauma rounds. This is day 55 post injury. The patient is awake and oriented x 3, yet his ability to follow commands is questionable, as he shrugs his shoulders to essentially all questions presented to him. He is awaiting Medicaid. He is on Amantadine 150 q0700 and 1200 with excellent results. He is a [place]. The next step is trial runs at removing his restraints on balance with his level of impulsivity ( eg., pulling tubes, etc). I will continue to follow. Hector Garrett PhD Oct 12, 2016 8:12 am
[2016-10-12] MEDS: FAMOTIDINE 20 MG TAB PO SCH ×2 (08:23→22:12)
[2016-10-12] MEDS: ASPIRIN 325 MG TAB PO SCH (08:23)
[2016-10-12] MEDS: DOCUSATE SODIUM 100 MG/10 ML UDC PO SCH ×2 (08:23→22:12)
[2016-10-12] MEDS: SODIUM CHLORIDE 0.9% FLUSH 5 ML FLUSH IVF SCH ×2 (08:29→22:13)
[2016-10-12] MEDS: ZINC OXIDE 20% OINT 30 GM TUBE TOPICAL SCH ×2 (08:31→22:14)
[2016-10-12] MEDS: BACITRACIN TOP OINT 15 GM TUBE TOP SCH ×2 (08:31→22:13)
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
[2016-10-12] MEDS: ENOXAPARIN SODIUM 40 MG/0.4 ML SYRINGE SQ SCH (12:56)
[2016-10-13] VITALS (9 sets, daily range): BP systolic 108–122; BP diastolic 72–84; PULSE 78–90; RESP 16–20; TEMP 97.6–98.6; O2SAT 94–98
[2016-10-13] MEDS: AMANTADINE HCL SOLN 100 MG/10 ML UDC PO SCH ×2 (06:24→12:11)
[2016-10-13] MEDS: CHLORHEXIDINE 0.12% (ORAL KIT) 15 ML CUP MT SCH ×3 (06:24→20:00)
[2016-10-13] MEDS: ASPIRIN 325 MG TAB PO SCH (10:01)
[2016-10-13] MEDS: FAMOTIDINE 20 MG TAB PO SCH ×2 (10:01→22:06)
[2016-10-13] MEDS: DOCUSATE SODIUM 100 MG/10 ML UDC PO SCH ×2 (10:02→22:06)
[2016-10-13] MEDS: ENOXAPARIN SODIUM 40 MG/0.4 ML SYRINGE SQ SCH (10:02)
[2016-10-13] MEDS: BACITRACIN TOP OINT 15 GM TUBE TOP SCH ×2 (10:02→21:00)
[2016-10-13] MEDS: ZINC OXIDE 20% OINT 30 GM TUBE TOPICAL SCH ×2 (10:02→21:00)
[2016-10-13] MEDS: SODIUM CHLORIDE 0.9% FLUSH 5 ML FLUSH IVF SCH ×2 (10:03→21:00)
--- NOTE | 2016-10-13 11:48 | HHI.PR ---
Neuropsych Behavior Behavior: Intact: Coping/Acceptance, Cooperative w/ Treatment, Impulsive/ Agitated Cognitive Cognitive: Severe: Cognitive, Attention/Concentration, Confused/Orientation, Insight/Awareness, Judgement/Problem-Solving, Memory Progress Notes/Response to Tx Contents of Sessions: Adjustment Time with Patient: 15 minutes Premorbid psychological status Premorbid Cognitive, Emotional and Behavioral Status: Unable to Assess. The patient has no family present to discuss his baseline status. Behavioral Reactions of Patient and Family/Support System: Unable to Assess. No family present. Emotional/Behavioral Status of Patient and Family/Support System: Unable to Assess. Pertinent issues, if appropriate to this patients clinical care, are described in detail above. Maximizing acute care outcome It is recommended that the patient be monitored for emergent behavioral impulsivity as the medical condition evolves. This patients neuropathological challenges may limit their rehabilitation potential going forward, and these challenges will require specialized therapeutic skills to maximize outcome. Anticipated Problems Ongoing areas of concern will include behavioral impulsivity, lack of insight and judgment, which is expected to improve with time and treatment. Treatment Plan This clinician will continue to follow with you throughout the course of this patients rehabilitation treatment, and I will be available to meet with the patients family/support system to facilitate their understanding and the ongoing care of their family member. The goals of neuropsychological intervention shall be both educational and supportive to the family/support system as is deemed clinically appropriate. [place] Level: V:Confused-non agitated Impression This patient has suffered a very severe traumatic brain injury with expected severe residual neurocognitive impairments. Diagnosis: (1) Major neurocognitive disorder as late effect of traumatic brain injury with behavioral disturbance Status: Acute Progress Note Narrative Ongoing follow-up of patient seen during daily trauma rounds. This is day 56 post injury. The patient is awake, alert and follows. We are working to d/c restraints in light of his improved Rancho level. He wishes to go home, but has no insight or awareness of the challenges he would face. He is a [place] V. I will continue to follow. Hector Garrett PhD Oct 13, 2016 11:48 am
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
[2016-10-14] VITALS (10 sets, daily range): BP systolic 92–136; BP diastolic 49–85; PULSE 76–88; RESP 16–20; TEMP 96.3–98.5; O2SAT 95–98
[2016-10-14] MEDS: AMANTADINE HCL SOLN 100 MG/10 ML UDC PO SCH ×2 (06:16→11:46)
[2016-10-14] MEDS: CHLORHEXIDINE 0.12% (ORAL KIT) 15 ML CUP MT SCH ×2 (08:00→20:00)
--- NOTE | 2016-10-14 08:18 | HHI.PR ---
Neuropsych Behavior Behavior: Intact: Coping/Acceptance, Cooperative w/ Treatment, Motivation, Impulsive/Agitated Cognitive Cognitive: Intact: Confused/Orientation, Severe: Cognitive, Attention/ Concentration, Insight/Awareness, Judgement/Problem-Solving, Memory Progress Notes/Response to Tx Contents of Sessions: Adjustment Premorbid psychological status Premorbid Cognitive, Emotional and Behavioral Status: Unable to Assess. The patient has no family present to discuss his baseline status. Behavioral Reactions of Patient and Family/Support System: Unable to Assess. No family present. Emotional/Behavioral Status of Patient and Family/Support System: Unable to Assess. Pertinent issues, if appropriate to this patients clinical care, are described in detail above. Maximizing acute care outcome It is recommended that the patient be monitored for emergent behavioral impulsivity as the medical condition evolves. This patients neuropathological challenges may limit their rehabilitation potential going forward, and these challenges will require specialized therapeutic skills to maximize outcome. Anticipated Problems Ongoing areas of concern will include behavioral impulsivity, lack of insight and judgment, which is expected to improve with time and treatment. Treatment Plan This clinician will continue to follow with you throughout the course of this patients rehabilitation treatment, and I will be available to meet with the patients family/support system to facilitate their understanding and the ongoing care of their family member. The goals of neuropsychological intervention shall be both educational and supportive to the family/support system as is deemed clinically appropriate. [facility] Level: V:Confused-non agitated Impression This patient has suffered a very severe traumatic brain injury with expected severe residual neurocognitive impairments. Diagnosis: (1) Major neurocognitive disorder as late effect of traumatic brain injury with behavioral disturbance Status: Acute Progress Note Narrative Ongoing follow-up of patient seen during daily trauma rounds. This is day 57 post injury. The patient is awake, alert, and oriented with consistent efforts toward communication of his wishes. We are attempting to d/c his restraints depending on his level of impulsivity. He is taking Amantadine 150 mg q0700 and 1200, with excellent response. He remains a [place]. I will continue to follow. Hector Garrett PhD Oct 14, 2016 08:18
[2016-10-14] MEDS: BACITRACIN TOP OINT 15 GM TUBE TOP SCH ×2 (09:00→21:00)
[2016-10-14] MEDS: SODIUM CHLORIDE 0.9% FLUSH 5 ML FLUSH IVF SCH ×2 (09:00→21:00)
[2016-10-14] MEDS: ZINC OXIDE 20% OINT 30 GM TUBE TOPICAL SCH ×2 (09:00→21:00)
[2016-10-14] MEDS: DOCUSATE SODIUM 100 MG/10 ML UDC PO SCH ×2 (09:11→22:37)
[2016-10-14] MEDS: ASPIRIN 325 MG TAB PO SCH (09:11)
[2016-10-14] MEDS: FAMOTIDINE 20 MG TAB PO SCH ×2 (09:11→22:37)
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
[2016-10-14] MEDS: ENOXAPARIN SODIUM 40 MG/0.4 ML SYRINGE SQ SCH (11:46)
[2016-10-14] MEDS: RESP: ALBUTEROL 2.5 MG/IPRATROPIUM 0.5 MG NEB (PRN) NEB (21:59)
[2016-10-15] VITALS (11 sets, daily range): BP systolic 90–132; BP diastolic 52–82; PULSE 80–104; RESP 18–20; TEMP 97.7–99.2; O2SAT 94–98
[2016-10-15] MEDS: AMANTADINE HCL SOLN 100 MG/10 ML UDC PO SCH ×2 (06:03→10:49)
[2016-10-15] MEDS: CHLORHEXIDINE 0.12% (ORAL KIT) 15 ML CUP MT SCH ×2 (08:00→20:00)
[2016-10-15] MEDS: SODIUM CHLORIDE 0.9% FLUSH 5 ML FLUSH IVF SCH ×2 (08:39→21:00)
[2016-10-15] MEDS: ZINC OXIDE 20% OINT 30 GM TUBE TOPICAL SCH ×2 (08:40→21:00)
[2016-10-15] MEDS: ASPIRIN 325 MG TAB PO SCH (08:40)
[2016-10-15] MEDS: BACITRACIN TOP OINT 15 GM TUBE TOP SCH ×2 (08:40→21:00)
[2016-10-15] MEDS: FAMOTIDINE 20 MG TAB PO SCH ×2 (08:40→21:31)
[2016-10-15] MEDS: DOCUSATE SODIUM 100 MG/10 ML UDC PO SCH ×2 (08:40→21:31)
[2016-10-15] MEDS: ENOXAPARIN SODIUM 40 MG/0.4 ML SYRINGE SQ SCH (10:49)
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
[2016-10-16] VITALS (10 sets, daily range): BP systolic 85–133; BP diastolic 60–83; PULSE 84–109; RESP 18–20; TEMP 96.6–99.3; O2SAT 10–95
[2016-10-16] MEDS: AMANTADINE HCL SOLN 100 MG/10 ML UDC PO SCH ×2 (06:41→11:20)
[2016-10-16] MEDS: CHLORHEXIDINE 0.12% (ORAL KIT) 15 ML CUP MT SCH ×2 (07:40→20:00)
[2016-10-16] MEDS: DOCUSATE SODIUM 100 MG/10 ML UDC PO SCH ×2 (08:40→20:44)
[2016-10-16] MEDS: ASPIRIN 325 MG TAB PO SCH (08:40)
[2016-10-16] MEDS: FAMOTIDINE 20 MG TAB PO SCH ×2 (08:40→20:44)
[2016-10-16] MEDS: SODIUM CHLORIDE 0.9% FLUSH 5 ML FLUSH IVF SCH ×2 (08:41→20:44)
[2016-10-16] MEDS: ZINC OXIDE 20% OINT 30 GM TUBE TOPICAL SCH ×2 (08:43→20:44)
[2016-10-16] MEDS: BACITRACIN TOP OINT 15 GM TUBE TOP SCH ×2 (08:43→20:44)
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
[2016-10-16] MEDS: ENOXAPARIN SODIUM 40 MG/0.4 ML SYRINGE SQ SCH (11:20)
[2016-10-16] MEDS ORDERED: MEGESTROL ACETATE 40 MG TAB PO SCH (11:30)
[2016-10-16] MEDS: MEGESTROL ACETATE SUSP 400 MG/10 ML CUP PO SCH (11:43)
[2016-10-17] VITALS (10 sets, daily range): BP systolic 98–139; BP diastolic 66–91; PULSE 85–102; RESP 18–21; TEMP 98–98.8; O2SAT 93–97
[2016-10-17] MEDS: AMANTADINE HCL SOLN 100 MG/10 ML UDC PO SCH ×2 (06:21→13:05)
[2016-10-17] MEDS: CHLORHEXIDINE 0.12% (ORAL KIT) 15 ML CUP MT SCH ×2 (08:00→20:00)
[2016-10-17] MEDS: MEGESTROL ACETATE SUSP 400 MG/10 ML CUP PO SCH (08:34)
[2016-10-17] MEDS: ASPIRIN 325 MG TAB PO SCH (08:34)
[2016-10-17] MEDS: DOCUSATE SODIUM 100 MG/10 ML UDC PO SCH ×2 (08:34→21:14)
[2016-10-17] MEDS: SODIUM CHLORIDE 0.9% FLUSH 5 ML FLUSH IVF SCH ×2 (08:34→21:00)
[2016-10-17] MEDS: FAMOTIDINE 20 MG TAB PO SCH ×2 (08:34→21:14)
[2016-10-17] MEDS: ZINC OXIDE 20% OINT 30 GM TUBE TOPICAL SCH ×2 (08:35→21:23)
[2016-10-17] MEDS: BACITRACIN TOP OINT 15 GM TUBE TOP SCH ×2 (08:35→21:00)
[2016-10-17 09:19] LABS: AUTOMATED NEUTROPHIL # 6.3 TH/MM3 (1.8-7.7); BASOPHIL # 0.1 TH/MM3 (0-0.2); BASOPHIL % 0.8 % (0.0-2.0); EOSINOPHIL # 0.2 TH/MM3 (0-0.4); EOSINOPHIL % 2.4 % (0.0-4.0); HEMATOCRIT 38.8 % (39.0-51.0); HEMO FLAGS DIFF FINAL; LYMPH % 19.4 % (9.0-44.0); LYMPHOCYTE # 1.7 TH/MM3 (1.0-4.8); MEAN CELL VOLUME 80.4 FL (80.0-100.0); MEAN CORPUSCULAR HEMOGLOBIN 26.2 PG (27.0-34.0); MEAN CORPUSCULAR HGB CONC 32.5 % (32.0-36.0); MONO % 7.1 % (0.0-8.0); NEUT % 70.3 % (16.0-70.0); PLATELET COUNT 413 TH/MM3 (150-450); RED BLOOD COUNT 4.82 MIL/MM3 (4.50-5.90); RED CELL DISTRIBUTION WIDTH 15.1 % (11.6-17.2); WHITE BLOOD COUNT 8.9 TH/MM3 (4.0-11.0)
[2016-10-17 09:49] LABS: ANION GAP 10 MEQ/L (5-15); AST (GOT) 18 U/L (15-37); BICARBONATE 25.6 MEQ/L (21.0-32.0); BLOOD UREA NITROGEN 13 MG/DL (7-18); CHLORIDE 102 MEQ/L (98-107); GLOMERULAR FILTRATION RATE 121 ML/MIN (>89); POTASSIUM 3.6 MEQ/L (3.5-5.1); SODIUM (NA) 138 MEQ/L (136-145)
[2016-10-17 09:50] LABS: ALT (GPT) 46 U/L (12-78)
[2016-10-17 09:52] LABS: ALKALINE PHOSPHATASE 166 U/L (45-117); TOTAL BILIRUBIN ADULT 0.3 MG/DL (0.2-1.0)
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
--- NOTE | 2016-10-17 11:24 | HHI.PR ---
Neuropsych Progress Notes/Response to Tx Contents of Sessions: Adjustment Time with Patient: 15 minutes Premorbid psychological status Premorbid Cognitive, Emotional and Behavioral Status: Unable to Assess. The patient has no family present to discuss his baseline status. Behavioral Reactions of Patient and Family/Support System: Unable to Assess. No family present. Emotional/Behavioral Status of Patient and Family/Support System: Unable to Assess. Pertinent issues, if appropriate to this patients clinical care, are described in detail above. Maximizing acute care outcome It is recommended that the patient be monitored for emergent behavioral impulsivity as the medical condition evolves. This patients neuropathological challenges may limit their rehabilitation potential going forward, and these challenges will require specialized therapeutic skills to maximize outcome. Anticipated Problems Ongoing areas of concern will include behavioral impulsivity, lack of insight and judgment, which is expected to improve with time and treatment. Treatment Plan This clinician will continue to follow with you throughout the course of this patients rehabilitation treatment, and I will be available to meet with the patients family/support system to facilitate their understanding and the ongoing care of their family member. The goals of neuropsychological intervention shall be both educational and supportive to the family/support system as is deemed clinically appropriate. [facility] Level: V:Confused-non agitated Impression This patient has suffered a very severe traumatic brain injury with expected severe residual neurocognitive impairments. Diagnosis: (1) Major neurocognitive disorder as late effect of traumatic brain injury with behavioral disturbance Status: Acute Progress Note Narrative Ongoing follow-up of patient seen during daily trauma rounds. This is day 60 post injury. The patient is stable, wanting to go home, demonstrates limited insight and awareness. He remains on Amantadine 150 q0700 and 1200 with good results. He remains a [place]. I will continue to follow. Hector Garrett PhD Oct 17, 2016 11:24 am
[2016-10-17] MEDS: ENOXAPARIN SODIUM 40 MG/0.4 ML SYRINGE SQ SCH (13:05)
[2016-10-18] VITALS (9 sets, daily range): BP systolic 112–137; BP diastolic 76–91; PULSE 85–103; RESP 14–20; TEMP 98–99.4; O2SAT 94–97
[2016-10-18] MEDS: AMANTADINE HCL SOLN 100 MG/10 ML UDC PO SCH ×2 (06:10→12:20)
[2016-10-18] MEDS: ASPIRIN 325 MG TAB PO SCH (07:59)
[2016-10-18] MEDS: DOCUSATE SODIUM 100 MG/10 ML UDC PO SCH ×2 (07:59→21:43)
[2016-10-18] MEDS: SODIUM CHLORIDE 0.9% FLUSH 5 ML FLUSH IVF SCH ×2 (07:59→21:00)
[2016-10-18] MEDS: FAMOTIDINE 20 MG TAB PO SCH ×2 (07:59→21:43)
[2016-10-18] MEDS: MEGESTROL ACETATE SUSP 400 MG/10 ML CUP PO SCH (07:59)
[2016-10-18] MEDS: CHLORHEXIDINE 0.12% (ORAL KIT) 15 ML CUP MT SCH ×2 (08:00→20:00)
--- NOTE | 2016-10-18 08:06 | HHI.PR ---
Neuropsych Behavior Behavior: Intact: Cooperative w/ Treatment, Motivation, Moderate: Frustration Tolerance/[place] Cognitive Cognitive: Intact: Confused/Orientation, Moderate: Cognitive, Attention/ Concentration, Insight/Awareness, Judgement/Problem-Solving, Memory Progress Notes/Response to Tx Time with Patient: 15 minutes Premorbid psychological status Premorbid Cognitive, Emotional and Behavioral Status: Unable to Assess. The patient has no family present to discuss his baseline status. Behavioral Reactions of Patient and Family/Support System: Unable to Assess. No family present. Emotional/Behavioral Status of Patient and Family/Support System: Unable to Assess. Pertinent issues, if appropriate to this patients clinical care, are described in detail above. Maximizing acute care outcome It is recommended that the patient be monitored for emergent behavioral impulsivity as the medical condition evolves. This patients neuropathological challenges may limit their rehabilitation potential going forward, and these challenges will require specialized therapeutic skills to maximize outcome. Anticipated Problems Ongoing areas of concern will include behavioral impulsivity, lack of insight and judgment, which is expected to improve with time and treatment. Treatment Plan This clinician will continue to follow with you throughout the course of this patients rehabilitation treatment, and I will be available to meet with the patients family/support system to facilitate their understanding and the ongoing care of their family member. The goals of neuropsychological intervention shall be both educational and supportive to the family/support system as is deemed clinically appropriate. [place] Level: V:Confused-non agitated Impression This patient has suffered a very severe traumatic brain injury with expected severe residual neurocognitive impairments. Diagnosis: (1) Major neurocognitive disorder as late effect of traumatic brain injury with behavioral disturbance Status: Acute Progress Note Narrative Ongoing follow-up of patient seen during daily trauma rounds. This is day 61 post injury. The patient is stable, making great progress from a neurobehavioral standpoint, consistent with a [place]. Remains on Amantadine 150 q0700 and 1200. Trauma team consensus is to d/c restraints as they are no longer needed on balance with his continued impulsivity (pulling tubes, etc), which has improved as well. His po intake is still poor. I will continue to follow. Hector Garrett PhD Oct 18, 2016 8:06 am
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
[2016-10-18] MEDS: ENOXAPARIN SODIUM 40 MG/0.4 ML SYRINGE SQ SCH (12:20)
[2016-10-18] MEDS: BACITRACIN TOP OINT 15 GM TUBE TOP SCH ×2 (12:22→21:43)
[2016-10-18] MEDS: ZINC OXIDE 20% OINT 30 GM TUBE TOPICAL SCH ×2 (12:23→21:44)
[2016-10-19] VITALS (9 sets, daily range): BP systolic 105–141; BP diastolic 74–90; PULSE 80–95; RESP 16–20; TEMP 98.1–99.5; O2SAT 95–100
[2016-10-19] MEDS: AMANTADINE HCL SOLN 100 MG/10 ML UDC PO SCH ×2 (06:00→11:58)
[2016-10-19] MEDS: ASPIRIN 325 MG TAB PO SCH (08:38)
[2016-10-19] MEDS: FAMOTIDINE 20 MG TAB PO SCH ×2 (08:38→20:38)
[2016-10-19] MEDS: DOCUSATE SODIUM 100 MG/10 ML UDC PO SCH ×2 (08:38→20:38)
[2016-10-19] MEDS: MEGESTROL ACETATE SUSP 400 MG/10 ML CUP PO SCH (08:38)
[2016-10-19] MEDS: SODIUM CHLORIDE 0.9% FLUSH 5 ML FLUSH IVF SCH ×2 (08:39→20:38)
[2016-10-19] MEDS: BACITRACIN TOP OINT 15 GM TUBE TOP SCH ×2 (08:39→20:40)
[2016-10-19] MEDS: ZINC OXIDE 20% OINT 30 GM TUBE TOPICAL SCH ×2 (08:40→20:40)
[2016-10-19] MEDS: ENOXAPARIN SODIUM 40 MG/0.4 ML SYRINGE SQ SCH (11:58)
--- NOTE | 2016-10-19 12:59 | HHI.PR ---
Neuropsych Behavior Behavior: Intact: Coping/Acceptance, Cooperative w/ Treatment, Motivation Cognitive Cognitive: Severe: Cognitive, Attention/Concentration, Confused/Orientation, Insight/Awareness, Judgement/Problem-Solving, Memory Progress Notes/Response to Tx Time with Patient: 15 minutes Premorbid psychological status Premorbid Cognitive, Emotional and Behavioral Status: Unable to Assess. The patient has no family present to discuss his baseline status. Behavioral Reactions of Patient and Family/Support System: Unable to Assess. No family present. Emotional/Behavioral Status of Patient and Family/Support System: Unable to Assess. Pertinent issues, if appropriate to this patients clinical care, are described in detail above. Maximizing acute care outcome It is recommended that the patient be monitored for emergent behavioral impulsivity as the medical condition evolves. This patients neuropathological challenges may limit their rehabilitation potential going forward, and these challenges will require specialized therapeutic skills to maximize outcome. Anticipated Problems Ongoing areas of concern will include behavioral impulsivity, lack of insight and judgment, which is expected to improve with time and treatment. Treatment Plan This clinician will continue to follow with you throughout the course of this patients rehabilitation treatment, and I will be available to meet with the patients family/support system to facilitate their understanding and the ongoing care of their family member. The goals of neuropsychological intervention shall be both educational and supportive to the family/support system as is deemed clinically appropriate. [facility] Level: :Confused-appropriate Impression This patient has suffered a very severe traumatic brain injury with expected severe residual neurocognitive impairments. Diagnosis: (1) Major neurocognitive disorder as late effect of traumatic brain injury with behavioral disturbance Status: Acute Progress Note Narrative Ongoing follow-up of patient seen during daily trauma rounds. This is day 62 post injury. The patient is continuing to improve, is awake, alert, oriented and eating. He wants to go home, but accepts our decision that he must stay for right now. The patient has improved neurobehaviorally, and is now considered a [place] . I will continue to follow. Hector Garrett PhD Oct 19, 2016 12:59 pm
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
[2016-10-19] MEDS: CHLORHEXIDINE 0.12% (ORAL KIT) 15 ML CUP MT SCH (20:00)
[2016-10-20] VITALS (13 sets, daily range): BP systolic 86–130; BP diastolic 59–85; PULSE 70–95; RESP 16–18; TEMP 96.3–99.3; O2SAT 94–100
[2016-10-20] MEDS: AMANTADINE HCL SOLN 100 MG/10 ML UDC PO SCH ×2 (06:16→13:53)
[2016-10-20] MEDS: CHLORHEXIDINE 0.12% (ORAL KIT) 15 ML CUP MT SCH ×2 (08:00→20:00)
[2016-10-20] MEDS: SODIUM CHLORIDE 0.9% FLUSH 5 ML FLUSH IVF SCH ×2 (09:00→20:39)
[2016-10-20] MEDS: MEGESTROL ACETATE SUSP 400 MG/10 ML CUP PO SCH (09:56)
[2016-10-20] MEDS: FAMOTIDINE 20 MG TAB PO SCH ×2 (09:56→20:38)
[2016-10-20] MEDS: DOCUSATE SODIUM 100 MG/10 ML UDC PO SCH ×2 (09:56→20:39)
[2016-10-20] MEDS: ASPIRIN 325 MG TAB PO SCH (09:57)
[2016-10-20] MEDS: ZINC OXIDE 20% OINT 30 GM TUBE TOPICAL SCH ×2 (09:59→20:39)
[2016-10-20] MEDS: BACITRACIN TOP OINT 15 GM TUBE TOP SCH ×2 (09:59→21:00)
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
[2016-10-20] MEDS: ENOXAPARIN SODIUM 40 MG/0.4 ML SYRINGE SQ SCH (13:53)
[2016-10-21] VITALS (7 sets, daily range): BP systolic 107–127; BP diastolic 66–83; PULSE 74–83; RESP 16–20; TEMP 96.3–98.8; O2SAT 95–98
[2016-10-21] MEDS: AMANTADINE HCL SOLN 100 MG/10 ML UDC PO SCH ×2 (05:34→12:23)
[2016-10-21] MEDS: CHLORHEXIDINE 0.12% (ORAL KIT) 15 ML CUP MT SCH ×2 (08:00→20:00)
[2016-10-21] MEDS: SODIUM CHLORIDE 0.9% FLUSH 5 ML FLUSH IVF SCH ×2 (09:00→20:31)
[2016-10-21] MEDS: DOCUSATE SODIUM 100 MG/10 ML UDC PO SCH ×2 (09:28→20:29)
[2016-10-21] MEDS: MEGESTROL ACETATE SUSP 400 MG/10 ML CUP PO SCH (09:28)
[2016-10-21] MEDS: FAMOTIDINE 20 MG TAB PO SCH ×2 (09:29→20:28)
[2016-10-21] MEDS: ASPIRIN 325 MG TAB PO SCH (09:29)
[2016-10-21] MEDS: BACITRACIN TOP OINT 15 GM TUBE TOP SCH ×2 (09:36→20:30)
[2016-10-21] MEDS: ZINC OXIDE 20% OINT 30 GM TUBE TOPICAL SCH ×2 (09:37→20:30)
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
[2016-10-21] MEDS: ENOXAPARIN SODIUM 40 MG/0.4 ML SYRINGE SQ SCH (12:25)
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
[2016-10-21] MEDS ORDERED: LACTULOSE SYRUP 20 GM/30 ML CUP PO ONE (13:45)
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
[2016-10-22] VITALS (7 sets, daily range): BP systolic 101–134; BP diastolic 59–82; PULSE 73–85; RESP 18; TEMP 96.1–97.7; O2SAT 92–99
[2016-10-22] MEDS: AMANTADINE HCL SOLN 100 MG/10 ML UDC PO SCH ×2 (05:56→12:04)
[2016-10-22] MEDS: CHLORHEXIDINE 0.12% (ORAL KIT) 15 ML CUP MT SCH ×2 (10:08→20:00)
[2016-10-22] MEDS: MEGESTROL ACETATE SUSP 400 MG/10 ML CUP PO SCH (10:08)
[2016-10-22] MEDS: SODIUM CHLORIDE 0.9% FLUSH 5 ML FLUSH IVF SCH ×2 (10:08→21:00)
[2016-10-22] MEDS: DOCUSATE SODIUM 100 MG/10 ML UDC PO SCH ×2 (10:09→21:31)
[2016-10-22] MEDS: ENOXAPARIN SODIUM 40 MG/0.4 ML SYRINGE SQ SCH (10:09)
[2016-10-22] MEDS: ASPIRIN 325 MG TAB PO SCH (10:09)
[2016-10-22] MEDS: ZINC OXIDE 20% OINT 30 GM TUBE TOPICAL SCH ×2 (10:09→21:31)
[2016-10-22] MEDS: BACITRACIN TOP OINT 15 GM TUBE TOP SCH ×2 (10:09→21:31)
[2016-10-22] MEDS: FAMOTIDINE 20 MG TAB PO SCH ×2 (10:09→21:00)
[2016-10-22] MEDS ORDERED: LACTULOSE SYRUP 20 GM/30 ML CUP PO ONE (12:30)
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
[2016-10-22] MEDS ORDERED: ACETAMINOPHEN 325 MG TAB PO PRN (12:45)
[2016-10-23] VITALS (8 sets, daily range): BP systolic 81–132; BP diastolic 57–81; PULSE 57–114; RESP 18–20; TEMP 95.9–97.5; O2SAT 96–97
[2016-10-23] MEDS: AMANTADINE HCL SOLN 100 MG/10 ML UDC PO SCH ×2 (06:00→12:41)
[2016-10-23] MEDS: DOCUSATE SODIUM 100 MG/10 ML UDC PO SCH ×2 (09:40→23:13)
[2016-10-23] MEDS: SODIUM CHLORIDE 0.9% FLUSH 5 ML FLUSH IVF SCH ×2 (09:40→21:00)
[2016-10-23] MEDS: ASPIRIN 325 MG TAB PO SCH (09:40)
[2016-10-23] MEDS: CHLORHEXIDINE 0.12% (ORAL KIT) 15 ML CUP MT SCH ×2 (09:40→20:00)
[2016-10-23] MEDS: ZINC OXIDE 20% OINT 30 GM TUBE TOPICAL SCH ×2 (09:41→23:15)
[2016-10-23] MEDS: FAMOTIDINE 20 MG TAB PO SCH ×2 (09:41→21:00)
[2016-10-23] MEDS: ENOXAPARIN SODIUM 40 MG/0.4 ML SYRINGE SQ SCH (09:41)
[2016-10-23] MEDS: BACITRACIN TOP OINT 15 GM TUBE TOP SCH ×2 (09:41→23:14)
[2016-10-23] MEDS: MEGESTROL ACETATE SUSP 400 MG/10 ML CUP PO SCH (09:41)
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
[2016-10-24] VITALS: BP 107/82; PULSE 75; RESP 18; TEMP 98; O2SAT 100
[2016-10-24 04:00] VITALS: BP 111/70; PULSE 86; RESP 18; TEMP 96.8; O2SAT 97
[2016-10-24] MEDS: AMANTADINE HCL SOLN 100 MG/10 ML UDC PO SCH ×2 (06:38→14:55)
[2016-10-24] MEDS: CHLORHEXIDINE 0.12% (ORAL KIT) 15 ML CUP MT SCH ×2 (08:00→19:58)
[2016-10-24] MEDS: SODIUM CHLORIDE 0.9% FLUSH 5 ML FLUSH IVF SCH ×2 (09:00→19:58)
[2016-10-24 09:18] VITALS: BP 108/71; PULSE 85; RESP 16; TEMP 96.9; O2SAT 95
[2016-10-24] MEDS: DOCUSATE SODIUM 100 MG/10 ML UDC PO SCH ×2 (10:38→20:00)
[2016-10-24] MEDS: FAMOTIDINE 20 MG TAB PO SCH ×2 (10:39→20:00)
[2016-10-24] MEDS: ASPIRIN 325 MG TAB PO SCH (10:39)
[2016-10-24] MEDS: MEGESTROL ACETATE SUSP 400 MG/10 ML CUP PO SCH (10:39)
[2016-10-24] MEDS: BACITRACIN TOP OINT 15 GM TUBE TOP SCH ×2 (10:41→20:02)
[2016-10-24] MEDS: ZINC OXIDE 20% OINT 30 GM TUBE TOPICAL SCH ×2 (10:42→20:02)
[2016-10-24 12:46] VITALS: BP 126/86; PULSE 83; RESP 17; TEMP 97; O2SAT 98
--- NOTE | 2016-10-24 12:57 | HHI.PR ---
Neuropsych Behavior Behavior: Moderate: Behavior, Coping/Acceptance, Cooperative w/ Treatment, Motivation, Frustration Tolerance/[place], Impulsive/Agitated Cognitive Cognitive: Moderate: Cognitive, Attention/Concentration, Confused/Orientation, Insight/Awareness, Judgement/Problem-Solving, Memory Psychosocial Psychosocial: Intact: Psychosocial Progress Notes/Response to Tx Contents of Sessions: Adjustment Time with Patient: 15 minutes Premorbid psychological status Premorbid Cognitive, Emotional and Behavioral Status: Unable to Assess. The patient has no family present to discuss his baseline status. Behavioral Reactions of Patient and Family/Support System: Unable to Assess. No family present. Emotional/Behavioral Status of Patient and Family/Support System: Unable to Assess. Pertinent issues, if appropriate to this patients clinical care, are described in detail above. Maximizing acute care outcome It is recommended that the patient be monitored for emergent behavioral impulsivity as the medical condition evolves. This patients neuropathological challenges may limit their rehabilitation potential going forward, and these challenges will require specialized therapeutic skills to maximize outcome. Anticipated Problems Ongoing areas of concern will include behavioral impulsivity, lack of insight and judgment, which is expected to improve with time and treatment. Treatment Plan This clinician will continue to follow with you throughout the course of this patients rehabilitation treatment, and I will be available to meet with the patients family/support system to facilitate their understanding and the ongoing care of their family member. The goals of neuropsychological intervention shall be both educational and supportive to the family/support system as is deemed clinically appropriate. Impression This patient has suffered a very severe traumatic brain injury with expected severe residual neurocognitive impairments. Diagnosis: (1) Major neurocognitive disorder as late effect of traumatic brain injury with behavioral disturbance Status: Acute Progress Note Narrative Ongoing follow-up of patient seen during daily trauma rounds. This is day 67 post injury. This patient has improved significantly, and is likely to the point where he can be safely discharged into the care of his sister in order to take him home to [place]. He is awake, alert, oriented, follows and communicates effectively, as well as motivated and cooperative with treatment. He is a [place] . I will continue to follow. Hector Garrett PhD Oct 24, 2016 12:57 pm
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
[2016-10-24] MEDS: ENOXAPARIN SODIUM 40 MG/0.4 ML SYRINGE SQ SCH (14:54)
[2016-10-24 17:18] VITALS: BP 113/77; PULSE 88; RESP 17; TEMP 96.4; O2SAT 94
[2016-10-24 20:47] VITALS: BP 107/77; PULSE 53; RESP 20; TEMP 96.6; O2SAT 96
[2016-10-25 01:29] VITALS: BP 133/81; PULSE 95; RESP 20; TEMP 97.3; O2SAT 96
[2016-10-25 05:39] VITALS: BP 112/82; PULSE 79; RESP 20; TEMP 100.8; O2SAT 97
[2016-10-25] MEDS: AMANTADINE HCL SOLN 100 MG/10 ML UDC PO SCH ×2 (06:29→10:29)
[2016-10-25 08:00] VITALS: BP 111/88; PULSE 73; RESP 19; TEMP 97.6; O2SAT 95
[2016-10-25] MEDS: CHLORHEXIDINE 0.12% (ORAL KIT) 15 ML CUP MT SCH ×2 (08:00→20:00)
[2016-10-25] MEDS: SODIUM CHLORIDE 0.9% FLUSH 5 ML FLUSH IVF SCH ×2 (09:00→21:00)
[2016-10-25] MEDS: BACITRACIN TOP OINT 15 GM TUBE TOP SCH ×2 (09:00→21:00)
[2016-10-25] MEDS: ZINC OXIDE 20% OINT 30 GM TUBE TOPICAL SCH ×2 (09:00→21:00)
[2016-10-25] MEDS: ASPIRIN 325 MG TAB PO SCH (10:30)
[2016-10-25] MEDS: DOCUSATE SODIUM 100 MG/10 ML UDC PO SCH ×2 (10:30→21:00)
[2016-10-25] MEDS: FAMOTIDINE 20 MG TAB PO SCH ×2 (10:31→22:17)
[2016-10-25] MEDS: MEGESTROL ACETATE SUSP 400 MG/10 ML CUP PO SCH (10:31)
[2016-10-25] MEDS: ENOXAPARIN SODIUM 40 MG/0.4 ML SYRINGE SQ SCH (10:32)
[2016-10-25 12:00] VITALS: BP 106/79; PULSE 89; RESP 19; TEMP 96.7; O2SAT 95
--- NOTE | 2016-10-25 14:09 | HHI.PR ---
Neuropsych Behavior Behavior: Intact: Coping/Acceptance, Cooperative w/ Treatment, Motivation Cognitive Cognitive: Severe: Cognitive, Attention/Concentration, Confused/Orientation, Insight/Awareness, Judgement/Problem-Solving, Memory Psychosocial Psychosocial: Intact: Psychosocial Progress Notes/Response to Tx Contents of Sessions: Adjustment Time with Patient: 30 minutes Premorbid psychological status Premorbid Cognitive, Emotional and Behavioral Status: Unable to Assess. The patient has no family present to discuss his baseline status. Behavioral Reactions of Patient and Family/Support System: Unable to Assess. No family present. Emotional/Behavioral Status of Patient and Family/Support System: Unable to Assess. Pertinent issues, if appropriate to this patients clinical care, are described in detail above. Maximizing acute care outcome It is recommended that the patient be monitored for emergent behavioral impulsivity as the medical condition evolves. This patients neuropathological challenges may limit their rehabilitation potential going forward, and these challenges will require specialized therapeutic skills to maximize outcome. Anticipated Problems Ongoing areas of concern will include behavioral impulsivity, lack of insight and judgment, which is expected to improve with time and treatment. Treatment Plan This clinician will continue to follow with you throughout the course of this patients rehabilitation treatment, and I will be available to meet with the patients family/support system to facilitate their understanding and the ongoing care of their family member. The goals of neuropsychological intervention shall be both educational and supportive to the family/support system as is deemed clinically appropriate. [facility] Level: :Confused-appropriate Impression This patient has suffered a very severe traumatic brain injury with expected severe residual neurocognitive impairments. Diagnosis: (1) Major neurocognitive disorder as late effect of traumatic brain injury with behavioral disturbance Status: Acute Progress Note Narrative Ongoing follow-up of patient seen during daily trauma rounds. This is day 68 post injury. The patient is stable, wants to go home. Discussed his readiness for discharge with the patient's sister, who lives in [place], and will need to come here to retrieve patient. Discussed the neuropsychological, neurocognitive and neurobehavioral challenges this patient will face going forward, and that the challenges are considered permanent in nature. Recommended a follow-up with a neuropsychologist once in [place]. The patient is currently a [place] and is improving physically. I will continue to follow. Hector Garrett PhD Oct 25, 2016 14:09
[2016-10-25 16:00] VITALS: BP 105/74; PULSE 86; RESP 18; TEMP 97.8; O2SAT 97
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
[2016-10-25 21:30] VITALS: BP 108/71; PULSE 85; RESP 19; TEMP 98; O2SAT 97
[2016-10-26 04:40] VITALS: BP 105/75; PULSE 76; RESP 20; TEMP 98.8; O2SAT 96
[2016-10-26] MEDS: AMANTADINE HCL SOLN 100 MG/10 ML UDC PO SCH ×2 (07:19→11:15)
[2016-10-26 08:00] VITALS: BP 110/84; PULSE 89; RESP 18; TEMP 97.4; O2SAT 96
[2016-10-26] MEDS: CHLORHEXIDINE 0.12% (ORAL KIT) 15 ML CUP MT SCH ×2 (08:00→20:00)
[2016-10-26] MEDS: BACITRACIN TOP OINT 15 GM TUBE TOP SCH ×2 (09:00→22:35)
[2016-10-26] MEDS: SODIUM CHLORIDE 0.9% FLUSH 5 ML FLUSH IVF SCH ×2 (09:00→21:00)
[2016-10-26] MEDS: ZINC OXIDE 20% OINT 30 GM TUBE TOPICAL SCH ×2 (09:00→22:35)
[2016-10-26] MEDS: ASPIRIN 325 MG TAB PO SCH (10:07)
[2016-10-26] MEDS: FAMOTIDINE 20 MG TAB PO SCH ×2 (10:07→22:34)
[2016-10-26] MEDS: MEGESTROL ACETATE SUSP 400 MG/10 ML CUP PO SCH (10:08)
[2016-10-26] MEDS: DOCUSATE SODIUM 100 MG/10 ML UDC PO SCH ×2 (10:08→22:34)
--- NOTE | 2016-10-26 11:10 | PD.CAR.PN ---
CVT Progress Note Subjective/Hospital Course: Patient stable nothing to add to care from trauma point Patient remains in the hospital as a border because there is no place to go and he remains disposition problem Bilateral good breath sounds Abdomen soft active bowel sounds No other medical or clinical issues 10/26/16 Patient is stable Remains in the hospital as a border due to disposition problems Bilateral breath sounds hemodynamically patient is intact No other clinical issues to attend from surgical trauma point Objective: Vital Signs Date Time Temp Pulse Resp B/P Pulse Ox O2 Delivery O2 Flow Rate FiO2 10/26/16 08:00 97.4 89 18 110/84 96 10/26/16 04:40 98.8 76 20 105/75 96 10/25/16 21:30 98.0 85 19 108/71 97 10/25/16 16:00 97.8 86 18 105/74 97 10/25/16 12:00 96.7 89 19 106/79 95 Mook Stephenson MD Oct 26, 2016 11:10
[2016-10-26] MEDS: ENOXAPARIN SODIUM 40 MG/0.4 ML SYRINGE SQ SCH (11:15)
[2016-10-26 12:00] VITALS: BP 108/80; PULSE 71; RESP 17; TEMP 96.8; O2SAT 95
--- NOTE | 2016-10-26 14:27 | HHI.PR ---
Progress Notes/Response to Tx Premorbid psychological status Premorbid Cognitive, Emotional and Behavioral Status: Unable to Assess. The patient has no family present to discuss his baseline status. Behavioral Reactions of Patient and Family/Support System: Unable to Assess. No family present. Emotional/Behavioral Status of Patient and Family/Support System: Unable to Assess. Pertinent issues, if appropriate to this patients clinical care, are described in detail above. Maximizing acute care outcome It is recommended that the patient be monitored for emergent behavioral impulsivity as the medical condition evolves. This patients neuropathological challenges may limit their rehabilitation potential going forward, and these challenges will require specialized therapeutic skills to maximize outcome. Anticipated Problems Ongoing areas of concern will include behavioral impulsivity, lack of insight and judgment, which is expected to improve with time and treatment. Treatment Plan This clinician will continue to follow with you throughout the course of this patients rehabilitation treatment, and I will be available to meet with the patients family/support system to facilitate their understanding and the ongoing care of their family member. The goals of neuropsychological intervention shall be both educational and supportive to the family/support system as is deemed clinically appropriate. Diagnosis: (1) Major neurocognitive disorder as late effect of traumatic brain injury with behavioral disturbance Status: Acute Progress Note Narrative No change in neurocognitive status noted. Patient resting comfortably. Staff reports decrease in call flores use, indicating stabilized mood. Caty Moses PhD Oct 26, 2016 14:27
--- NOTE | 2016-10-26 14:45 | HHI.PR ---
Progress Notes/Response to Tx Premorbid psychological status Premorbid Cognitive, Emotional and Behavioral Status: Unable to Assess. The patient has no family present to discuss his baseline status. Behavioral Reactions of Patient and Family/Support System: Unable to Assess. No family present. Emotional/Behavioral Status of Patient and Family/Support System: Unable to Assess. Pertinent issues, if appropriate to this patients clinical care, are described in detail above. Maximizing acute care outcome It is recommended that the patient be monitored for emergent behavioral impulsivity as the medical condition evolves. This patients neuropathological challenges may limit their rehabilitation potential going forward, and these challenges will require specialized therapeutic skills to maximize outcome. Anticipated Problems Ongoing areas of concern will include behavioral impulsivity, lack of insight and judgment, which is expected to improve with time and treatment. Treatment Plan This clinician will continue to follow with you throughout the course of this patients rehabilitation treatment, and I will be available to meet with the patients family/support system to facilitate their understanding and the ongoing care of their family member. The goals of neuropsychological intervention shall be both educational and supportive to the family/support system as is deemed clinically appropriate. Diagnosis: (1) Major neurocognitive disorder as late effect of traumatic brain injury with behavioral disturbance Status: Acute Progress Note Narrative Dr. Moses covering for Dr. Garrett: No significant change in neurocognitive status noted in the past 24 hours per staff. Patient resting comfortably. Staff reports decrease in call flores use, indicating stabilized mood with the patient becoming less anxious and more skilled at self soothing without calling people into the room. The patient is pleasant and engaged. He does not demonstrate spontaneous initiation in terms of communication. However, he is responsive to queries. Caty Moses PhD Oct 26, 2016 14:45
[2016-10-26 16:00] VITALS: BP 116/63; PULSE 76; RESP 18; TEMP 97.9; O2SAT 96
[2016-10-26 20:00] VITALS: BP 109/72; PULSE 70; RESP 18; TEMP 98.6; O2SAT 97
[2016-10-27] VITALS: BP 135/91; PULSE 86; RESP 18; TEMP 97.8; O2SAT 98
[2016-10-27 04:00] VITALS: BP 112/71; PULSE 83; RESP 18; TEMP 97.9; O2SAT 96
[2016-10-27] MEDS: AMANTADINE HCL SOLN 100 MG/10 ML UDC PO SCH ×2 (06:08→11:46)
[2016-10-27 07:19] LABS: AUTOMATED NEUTROPHIL # 6.5 TH/MM3 (1.8-7.7); BASOPHIL # 0.1 TH/MM3 (0-0.2); BASOPHIL % 1.1 % (0.0-2.0); EOSINOPHIL # 0.2 TH/MM3 (0-0.4); EOSINOPHIL % 1.8 % (0.0-4.0); HEMATOCRIT 42.2 % (39.0-51.0); HEMO FLAGS DIFF FINAL; LYMPH % 23.9 % (9.0-44.0); LYMPHOCYTE # 2.4 TH/MM3 (1.0-4.8); MEAN CORPUSCULAR HEMOGLOBIN 26.5 PG (27.0-34.0); MEAN CORPUSCULAR HGB CONC 32.6 % (32.0-36.0); NEUT % 65.2 % (16.0-70.0); PLATELET COUNT 427 TH/MM3 (150-450); RED CELL DISTRIBUTION WIDTH 15.2 % (11.6-17.2); WHITE BLOOD COUNT 9.9 TH/MM3 (4.0-11.0)
[2016-10-27 07:35] LABS: ANION GAP 10 MEQ/L (5-15); AST (GOT) 12 U/L (15-37); BICARBONATE 23.8 MEQ/L (21.0-32.0); BLOOD UREA NITROGEN 16 MG/DL (7-18); CHLORIDE 104 MEQ/L (98-107); GLOMERULAR FILTRATION RATE 115 ML/MIN (>89); POTASSIUM 3.5 MEQ/L (3.5-5.1); SODIUM (NA) 138 MEQ/L (136-145)
[2016-10-27 07:36] LABS: ALT (GPT) 47 U/L (12-78)
[2016-10-27 07:38] LABS: ALKALINE PHOSPHATASE 159 U/L (45-117); TOTAL BILIRUBIN ADULT 0.2 MG/DL (0.2-1.0)
[2016-10-27] MEDS: CHLORHEXIDINE 0.12% (ORAL KIT) 15 ML CUP MT SCH ×2 (08:00→20:00)
[2016-10-27 08:08] VITALS: BP 95/65; PULSE 85; RESP 17; TEMP 98.4; O2SAT 96
[2016-10-27] MEDS: SODIUM CHLORIDE 0.9% FLUSH 5 ML FLUSH IVF SCH ×2 (08:56→20:34)
[2016-10-27] MEDS: ASPIRIN 325 MG TAB PO SCH (08:56)
[2016-10-27] MEDS: MEGESTROL ACETATE SUSP 400 MG/10 ML CUP PO SCH (08:57)
[2016-10-27] MEDS: BACITRACIN TOP OINT 15 GM TUBE TOP SCH ×2 (08:57→20:33)
[2016-10-27] MEDS: FAMOTIDINE 20 MG TAB PO SCH ×2 (08:57→20:32)
[2016-10-27] MEDS: DOCUSATE SODIUM 100 MG/10 ML UDC PO SCH ×2 (08:58→20:33)
[2016-10-27] MEDS: LACTULOSE SYRUP 20 GM/30 ML CUP PO SCH (08:58)
[2016-10-27] MEDS: ZINC OXIDE 20% OINT 30 GM TUBE TOPICAL SCH ×2 (08:59→20:33)
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
[2016-10-27] MEDS: ENOXAPARIN SODIUM 40 MG/0.4 ML SYRINGE SQ SCH (11:46)
[2016-10-27 12:37] VITALS: BP 95/70; PULSE 80; RESP 17; TEMP 96; O2SAT 97
[2016-10-27 16:06] VITALS: BP 95/66; PULSE 84; RESP 17; TEMP 97.1; O2SAT 98
[2016-10-27 20:00] VITALS: BP 120/97; PULSE 108; RESP 20; TEMP 96.1; O2SAT 100
[2016-10-27] MEDS: MAGNESIUM HYDROXIDE SUSP 30 ML CUP PO SCH (20:34)
[2016-10-27] MEDS: ACETAMINOPHEN 325 MG TAB PO PRN (20:41)
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
[2016-10-28] VITALS (7 sets, daily range): BP systolic 91–127; BP diastolic 66–83; PULSE 66–84; RESP 17–20; TEMP 96.5–98.4; O2SAT 95–97
[2016-10-28] MEDS: AMANTADINE HCL SOLN 100 MG/10 ML UDC PO SCH ×2 (05:52→11:48)
[2016-10-28] MEDS: CHLORHEXIDINE 0.12% (ORAL KIT) 15 ML CUP MT SCH ×2 (08:00→20:00)
[2016-10-28] MEDS ORDERED: BISACODYL EC 5 MG TABEC PO ONE (08:30)
[2016-10-28] MEDS ORDERED: BISACODYL 10 MG SUPP RECTAL ONE (08:30)
[2016-10-28] MEDS: SODIUM CHLORIDE 0.9% FLUSH 5 ML FLUSH IVF SCH ×2 (08:39→21:00)
[2016-10-28] MEDS: ASPIRIN 325 MG TAB PO SCH (08:41)
[2016-10-28] MEDS: LACTULOSE SYRUP 20 GM/30 ML CUP PO SCH (08:41)
[2016-10-28] MEDS: DOCUSATE SODIUM 100 MG/10 ML UDC PO SCH ×2 (08:41→21:09)
[2016-10-28] MEDS: FAMOTIDINE 20 MG TAB PO SCH ×2 (08:41→21:09)
[2016-10-28] MEDS: MEGESTROL ACETATE SUSP 400 MG/10 ML CUP PO SCH (08:41)
[2016-10-28] MEDS: BACITRACIN TOP OINT 15 GM TUBE TOP SCH ×2 (08:43→21:00)
[2016-10-28] MEDS: ZINC OXIDE 20% OINT 30 GM TUBE TOPICAL SCH ×2 (08:43→21:00)
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
[2016-10-28] MEDS: ENOXAPARIN SODIUM 40 MG/0.4 ML SYRINGE SQ SCH (11:48)
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
[2016-10-28] MEDS: MAGNESIUM HYDROXIDE SUSP 30 ML CUP PO SCH (21:09)
[2016-10-29 00:26] VITALS: BP 119/76; PULSE 79; RESP 18; TEMP 96.5; O2SAT 96
[2016-10-29 04:40] VITALS: BP 126/68; PULSE 83; RESP 17; TEMP 97.5; O2SAT 95
[2016-10-29] MEDS: AMANTADINE HCL SOLN 100 MG/10 ML UDC PO SCH ×2 (06:17→11:40)
[2016-10-29 07:41] VITALS: BP 112/76; PULSE 78; RESP 16; TEMP 97.6; O2SAT 96
[2016-10-29] MEDS: CHLORHEXIDINE 0.12% (ORAL KIT) 15 ML CUP MT SCH ×2 (08:00→20:00)
[2016-10-29] MEDS: ASPIRIN 325 MG TAB PO SCH (08:41)
[2016-10-29] MEDS: LACTULOSE SYRUP 20 GM/30 ML CUP PO SCH (08:41)
[2016-10-29] MEDS: FAMOTIDINE 20 MG TAB PO SCH ×2 (08:42→21:52)
[2016-10-29] MEDS: MEGESTROL ACETATE SUSP 400 MG/10 ML CUP PO SCH (08:42)
[2016-10-29] MEDS: SODIUM CHLORIDE 0.9% FLUSH 5 ML FLUSH IVF SCH ×2 (08:42→21:00)
[2016-10-29] MEDS: DOCUSATE SODIUM 100 MG/10 ML UDC PO SCH ×2 (08:42→21:52)
[2016-10-29] MEDS: ZINC OXIDE 20% OINT 30 GM TUBE TOPICAL SCH ×2 (08:45→21:53)
[2016-10-29] MEDS: BACITRACIN TOP OINT 15 GM TUBE TOP SCH ×2 (08:45→21:53)
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
[2016-10-29 11:35] VITALS: BP 112/78; PULSE 86; RESP 17; TEMP 97.5; O2SAT 97
[2016-10-29] MEDS: ENOXAPARIN SODIUM 40 MG/0.4 ML SYRINGE SQ SCH (11:40)
[2016-10-29 15:37] VITALS: BP 114/82; PULSE 85; RESP 17; TEMP 97; O2SAT 96
[2016-10-29 20:30] VITALS: BP 135/82; PULSE 82; RESP 16; TEMP 97.8; O2SAT 97
[2016-10-29] MEDS: MAGNESIUM HYDROXIDE SUSP 30 ML CUP PO SCH (21:52)
[2016-10-30] VITALS (7 sets, daily range): BP systolic 97–117; BP diastolic 67–81; PULSE 71–98; RESP 17–20; TEMP 96–100.3; O2SAT 94–98
[2016-10-30] MEDS: AMANTADINE HCL SOLN 100 MG/10 ML UDC PO SCH ×2 (06:30→11:57)
[2016-10-30] MEDS: CHLORHEXIDINE 0.12% (ORAL KIT) 15 ML CUP MT SCH (08:00)
[2016-10-30] MEDS: SODIUM CHLORIDE 0.9% FLUSH 5 ML FLUSH IVF SCH (08:09)
[2016-10-30] MEDS: MEGESTROL ACETATE SUSP 400 MG/10 ML CUP PO SCH (08:09)
[2016-10-30] MEDS: DOCUSATE SODIUM 100 MG/10 ML UDC PO SCH ×2 (08:09→20:57)
[2016-10-30] MEDS: LACTULOSE SYRUP 20 GM/30 ML CUP PO SCH (08:09)
[2016-10-30] MEDS: ASPIRIN 325 MG TAB PO SCH (08:09)
[2016-10-30] MEDS: FAMOTIDINE 20 MG TAB PO SCH ×2 (08:09→20:57)
[2016-10-30] MEDS: ZINC OXIDE 20% OINT 30 GM TUBE TOPICAL SCH ×2 (08:09→20:58)
[2016-10-30] MEDS: BACITRACIN TOP OINT 15 GM TUBE TOP SCH ×2 (08:09→20:58)
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
[2016-10-30] MEDS: ENOXAPARIN SODIUM 40 MG/0.4 ML SYRINGE SQ SCH (11:57)
[2016-10-30] MEDS: MAGNESIUM HYDROXIDE SUSP 30 ML CUP PO SCH (20:57)
[2016-10-31 04:00] VITALS: BP 103/71; PULSE 70; RESP 20; TEMP 97.7; O2SAT 97
[2016-10-31] MEDS: AMANTADINE HCL SOLN 100 MG/10 ML UDC PO SCH ×2 (06:28→11:22)
[2016-10-31 08:00] VITALS: BP 128/83; PULSE 73; RESP 18; TEMP 96.4; O2SAT 96
[2016-10-31] MEDS: MEGESTROL ACETATE SUSP 400 MG/10 ML CUP PO SCH (08:28)
[2016-10-31] MEDS: LACTULOSE SYRUP 20 GM/30 ML CUP PO SCH (08:28)
[2016-10-31] MEDS: ASPIRIN 325 MG TAB PO SCH (08:28)
[2016-10-31] MEDS: FAMOTIDINE 20 MG TAB PO SCH ×2 (08:29→21:02)
[2016-10-31] MEDS: DOCUSATE SODIUM 100 MG/10 ML UDC PO SCH ×2 (08:29→21:02)
[2016-10-31] MEDS: BACITRACIN TOP OINT 15 GM TUBE TOP SCH ×2 (08:33→21:00)
[2016-10-31] MEDS: ZINC OXIDE 20% OINT 30 GM TUBE TOPICAL SCH ×2 (08:34→21:00)
[2016-10-31] MEDS: ENOXAPARIN SODIUM 40 MG/0.4 ML SYRINGE SQ SCH (11:22)
[2016-10-31 12:00] VITALS: BP 107/75; PULSE 74; RESP 20; TEMP 97.5; O2SAT 96
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
[2016-10-31] MEDS: ACETAMINOPHEN 325 MG TAB PO PRN ×2 (15:28→21:02)
--- NOTE | 2016-10-31 16:40 | HHI.PR ---
Progress Notes/Response to Tx Premorbid psychological status Premorbid Cognitive, Emotional and Behavioral Status: Unable to Assess. The patient has no family present to discuss his baseline status. Behavioral Reactions of Patient and Family/Support System: Unable to Assess. No family present. Emotional/Behavioral Status of Patient and Family/Support System: Unable to Assess. Pertinent issues, if appropriate to this patients clinical care, are described in detail above. Maximizing acute care outcome It is recommended that the patient be monitored for emergent behavioral impulsivity as the medical condition evolves. This patients neuropathological challenges may limit their rehabilitation potential going forward, and these challenges will require specialized therapeutic skills to maximize outcome. Anticipated Problems Ongoing areas of concern will include behavioral impulsivity, lack of insight and judgment, which is expected to improve with time and treatment. Treatment Plan This clinician will continue to follow with you throughout the course of this patients rehabilitation treatment, and I will be available to meet with the patients family/support system to facilitate their understanding and the ongoing care of their family member. The goals of neuropsychological intervention shall be both educational and supportive to the family/support system as is deemed clinically appropriate. Diagnosis: (1) Major neurocognitive disorder as late effect of traumatic brain injury with behavioral disturbance Status: Acute Progress Note Narrative The patient was verbal and responsive to queries. However he remains very confused. He remains a high risk for elopement and has delusional content to his thinking. He has been without restraints throughout the day but I would advise continued supervision, as he has a history of wandering, aggressive exit seeking, physical aggression, and elopement. Having been taken out AMA and without medication compliance during his time away from the hospital before being re-admitted, the patient will gradually become more neuropsychologically stabilized as his medication is administered properly and he has appropriate externally imposed boundaries. Caty Moses PhD Oct 31, 2016 16:40
[2016-10-31 17:30] VITALS: BP 104/76; PULSE 85; RESP 22; TEMP 97.2; O2SAT 97
[2016-10-31 20:00] VITALS: BP 99/67; PULSE 74; RESP 18; TEMP 97.4; O2SAT 96
[2016-10-31] MEDS: MAGNESIUM HYDROXIDE SUSP 30 ML CUP PO SCH (21:02)
[2016-11-01] VITALS (7 sets, daily range): BP systolic 95–126; BP diastolic 61–85; PULSE 66–80; RESP 18–21; TEMP 95.7–98.1; O2SAT 94–98
[2016-11-01] MEDS: AMANTADINE HCL SOLN 100 MG/10 ML UDC PO SCH ×2 (07:09→11:38)
[2016-11-01] MEDS: MEGESTROL ACETATE SUSP 400 MG/10 ML CUP PO SCH (07:59)
[2016-11-01] MEDS: DOCUSATE SODIUM 100 MG/10 ML UDC PO SCH ×2 (07:59→20:56)
[2016-11-01] MEDS: FAMOTIDINE 20 MG TAB PO SCH ×2 (08:01→20:56)
[2016-11-01] MEDS: ASPIRIN 325 MG TAB PO SCH (08:01)
[2016-11-01] MEDS: ZINC OXIDE 20% OINT 30 GM TUBE TOPICAL SCH ×2 (08:04→21:00)
[2016-11-01] MEDS: LACTULOSE SYRUP 20 GM/30 ML CUP PO SCH (08:05)
[2016-11-01] MEDS: BACITRACIN TOP OINT 15 GM TUBE TOP SCH ×2 (09:00→21:01)
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
--- NOTE | 2016-11-01 11:32 | HHI.HCPN ---
Met with Mr. Vinson for follow- up palliative care support. Mr. Vinson is currently sitting in bedside chair watching t.v. He is alert and able to make his needs known. Denies any pain, discomfort, questions or concerns at this time. Appeasr to have impaired judgement and insight into situation. Verbalizes plan to discharge home by himself. Reports he has friends that live close that will assist him with grocery shopping, daily living, etc. Reports his sister will be coming into town from [place] sometime next week. Confirms she wishes for him to move back to [place] with her but he declines wanting to go to [place] with her at this time. Confirmed he has palliative care contact information. Will attempt to touch base with sister when shes in town next week. Palliative care will be available as needed throughout hospitalization. Michelle Gimenez, BINDER CHAINSTITCH Nov 01, 2016 11:32
[2016-11-01] MEDS: ENOXAPARIN SODIUM 40 MG/0.4 ML SYRINGE SQ SCH (11:38)
[2016-11-01] MEDS: MAGNESIUM HYDROXIDE SUSP 30 ML CUP PO SCH (20:56)
[2016-11-02] MEDS: AMANTADINE HCL SOLN 100 MG/10 ML UDC PO SCH ×2 (06:02→12:14)
[2016-11-02 06:43] VITALS: BP 110/75; PULSE 75; RESP 18; TEMP 98.6; O2SAT 96
[2016-11-02] MEDS ORDERED: BISACODYL 10 MG SUPP RECTAL ONE (08:00)
[2016-11-02] MEDS ORDERED: BISACODYL EC 5 MG TABEC PO ONE (08:00)
[2016-11-02 08:09] VITALS: BP 113/89; PULSE 77; RESP 18; TEMP 97.7; O2SAT 97
[2016-11-02] MEDS: LACTULOSE SYRUP 20 GM/30 ML CUP PO SCH (09:18)
[2016-11-02] MEDS: MEGESTROL ACETATE SUSP 400 MG/10 ML CUP PO SCH (09:19)
[2016-11-02] MEDS: FAMOTIDINE 20 MG TAB PO SCH ×2 (09:19→20:19)
[2016-11-02] MEDS: ASPIRIN 325 MG TAB PO SCH (09:19)
[2016-11-02] MEDS: DOCUSATE SODIUM 100 MG/10 ML UDC PO SCH ×2 (09:19→20:19)
[2016-11-02] MEDS: BACITRACIN TOP OINT 15 GM TUBE TOP SCH ×2 (09:20→20:19)
[2016-11-02] MEDS: ZINC OXIDE 20% OINT 30 GM TUBE TOPICAL SCH ×2 (09:20→20:20)
[2016-11-02] MEDS: ENOXAPARIN SODIUM 40 MG/0.4 ML SYRINGE SQ SCH (11:01)
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
[2016-11-02] MEDS ORDERED: WALKER WHEELS/F1 MIS (12:18)
[2016-11-02] MEDS ORDERED: WHEEMIS3 (12:18)
[2016-11-02] MEDS ORDERED: COMMODE 3-IN-11 MIS (12:18)
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
[2016-11-02 12:25] VITALS: BP 105/77; PULSE 74; RESP 18; TEMP 97.2; O2SAT 97
--- NOTE | 2016-11-02 15:52 | HHI.PR ---
Progress Notes/Response to Tx Premorbid psychological status Premorbid Cognitive, Emotional and Behavioral Status: Unable to Assess. The patient has no family present to discuss his baseline status. Behavioral Reactions of Patient and Family/Support System: Unable to Assess. No family present. Emotional/Behavioral Status of Patient and Family/Support System: Unable to Assess. Pertinent issues, if appropriate to this patients clinical care, are described in detail above. Maximizing acute care outcome It is recommended that the patient be monitored for emergent behavioral impulsivity as the medical condition evolves. This patients neuropathological challenges may limit their rehabilitation potential going forward, and these challenges will require specialized therapeutic skills to maximize outcome. Anticipated Problems Ongoing areas of concern will include behavioral impulsivity, lack of insight and judgment, which is expected to improve with time and treatment. Treatment Plan This clinician will continue to follow with you throughout the course of this patients rehabilitation treatment, and I will be available to meet with the patients family/support system to facilitate their understanding and the ongoing care of their family member. The goals of neuropsychological intervention shall be both educational and supportive to the family/support system as is deemed clinically appropriate. Diagnosis: (1) Major neurocognitive disorder as late effect of traumatic brain injury with behavioral disturbance Status: Acute Progress Note Narrative Patient reports stable mood. Verbal, engaged, and responsive to queries. Caty Moses PhD Nov 02, 2016 15:52
[2016-11-02 16:17] VITALS: BP 133/86; PULSE 78; RESP 17; TEMP 97.8; O2SAT 98
[2016-11-02 20:00] VITALS: BP 119/83; PULSE 82; RESP 19; TEMP 98.1; O2SAT 98
[2016-11-02] MEDS: MAGNESIUM HYDROXIDE SUSP 30 ML CUP PO SCH (20:19)
[2016-11-03 00:10] VITALS: BP 120/75; PULSE 67; RESP 19; TEMP 98.8; O2SAT 99
[2016-11-03 04:15] VITALS: BP 115/69; PULSE 68; RESP 18; TEMP 98.8; O2SAT 96
[2016-11-03] MEDS: AMANTADINE HCL SOLN 100 MG/10 ML UDC PO SCH ×2 (06:11→11:20)
[2016-11-03] MEDS: ASPIRIN 325 MG TAB PO SCH (08:14)
[2016-11-03] MEDS: FAMOTIDINE 20 MG TAB PO SCH ×2 (08:14→20:45)
[2016-11-03] MEDS: MEGESTROL ACETATE SUSP 400 MG/10 ML CUP PO SCH (08:15)
[2016-11-03] MEDS: DOCUSATE SODIUM 100 MG/10 ML UDC PO SCH ×2 (08:15→20:46)
[2016-11-03] MEDS: LACTULOSE SYRUP 20 GM/30 ML CUP PO SCH (08:16)
[2016-11-03] MEDS: ZINC OXIDE 20% OINT 30 GM TUBE TOPICAL SCH ×2 (08:17→20:46)
[2016-11-03] MEDS: BACITRACIN TOP OINT 15 GM TUBE TOP SCH ×2 (08:17→20:45)
[2016-11-03 08:29] VITALS: BP 108/74; PULSE 74; RESP 18; TEMP 97.4; O2SAT 97
[2016-11-03] MEDS: ENOXAPARIN SODIUM 40 MG/0.4 ML SYRINGE SQ SCH (11:17)
[2016-11-03 11:48] LABS: HEMATOCRIT 43.4 % (39.0-51.0); MEAN CELL VOLUME 80.4 FL (80.0-100.0); MEAN CORPUSCULAR HEMOGLOBIN 25.1 PG (27.0-34.0); MEAN CORPUSCULAR HGB CONC 31.2 % (32.0-36.0); PLATELET COUNT 392 TH/MM3 (150-450); RED CELL DISTRIBUTION WIDTH 15.9 % (11.6-17.2); REVIEW FLAG FINAL; WHITE BLOOD COUNT 10.3 TH/MM3 (4.0-11.0)
[2016-11-03 12:23] VITALS: BP 102/64; PULSE 75; RESP 16; TEMP 98.4; O2SAT 98
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
[2016-11-03 16:21] VITALS: BP 108/69; PULSE 72; RESP 17; TEMP 98.3; O2SAT 96
[2016-11-03 17:20] LABS: BICARBONATE 22.4 MEQ/L (21.0-32.0)
--- NOTE | 2016-11-03 17:26 | HHI.PR ---
Progress Notes/Response to Tx Premorbid psychological status Premorbid Cognitive, Emotional and Behavioral Status: Unable to Assess. The patient has no family present to discuss his baseline status. Behavioral Reactions of Patient and Family/Support System: Unable to Assess. No family present. Emotional/Behavioral Status of Patient and Family/Support System: Unable to Assess. Pertinent issues, if appropriate to this patients clinical care, are described in detail above. Maximizing acute care outcome It is recommended that the patient be monitored for emergent behavioral impulsivity as the medical condition evolves. This patients neuropathological challenges may limit their rehabilitation potential going forward, and these challenges will require specialized therapeutic skills to maximize outcome. Anticipated Problems Ongoing areas of concern will include behavioral impulsivity, lack of insight and judgment, which is expected to improve with time and treatment. Treatment Plan This clinician will continue to follow with you throughout the course of this patients rehabilitation treatment, and I will be available to meet with the patients family/support system to facilitate their understanding and the ongoing care of their family member. The goals of neuropsychological intervention shall be both educational and supportive to the family/support system as is deemed clinically appropriate. Diagnosis: (1) Major neurocognitive disorder as late effect of traumatic brain injury with behavioral disturbance Status: Acute Progress Note Narrative No significant change in neuropsychological status Caty Moses PhD Nov 03, 2016 17:25
[2016-11-03 20:00] VITALS: BP 120/81; PULSE 71; RESP 18; TEMP 97.6; O2SAT 98
[2016-11-03] MEDS: MAGNESIUM HYDROXIDE SUSP 30 ML CUP PO SCH (20:46)
[2016-11-04] VITALS (7 sets, daily range): BP systolic 104–130; BP diastolic 63–82; PULSE 70–76; RESP 18–20; TEMP 96.4–97.8; O2SAT 93–99
[2016-11-04] MEDS: AMANTADINE HCL SOLN 100 MG/10 ML UDC PO SCH ×2 (06:10→11:16)
[2016-11-04] MEDS: LACTULOSE SYRUP 20 GM/30 ML CUP PO SCH (07:54)
[2016-11-04] MEDS: MEGESTROL ACETATE SUSP 400 MG/10 ML CUP PO SCH (07:54)
[2016-11-04] MEDS: DOCUSATE SODIUM 100 MG/10 ML UDC PO SCH ×2 (07:54→20:47)
[2016-11-04] MEDS: ASPIRIN 325 MG TAB PO SCH (07:55)
[2016-11-04] MEDS: FAMOTIDINE 20 MG TAB PO SCH ×2 (07:55→20:47)
[2016-11-04] MEDS: BACITRACIN TOP OINT 15 GM TUBE TOP SCH ×2 (07:56→20:50)
[2016-11-04] MEDS: ZINC OXIDE 20% OINT 30 GM TUBE TOPICAL SCH ×2 (07:56→20:50)
[2016-11-04] MEDS: ENOXAPARIN SODIUM 40 MG/0.4 ML SYRINGE SQ SCH (11:15)
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
[2016-11-04] MEDS: MAGNESIUM HYDROXIDE SUSP 30 ML CUP PO SCH (20:47)
[2016-11-05] VITALS: BP 110/73; PULSE 85; RESP 20; TEMP 97.5; O2SAT 96
[2016-11-05 04:00] VITALS: BP 113/69; PULSE 76; RESP 20; TEMP 97.6; O2SAT 97
[2016-11-05] MEDS: AMANTADINE HCL SOLN 100 MG/10 ML UDC PO SCH ×2 (06:40→11:30)
[2016-11-05 08:03] VITALS: BP 115/72; PULSE 67; RESP 16; TEMP 96.2; O2SAT 100
[2016-11-05] MEDS: FAMOTIDINE 20 MG TAB PO SCH ×2 (08:59→22:05)
[2016-11-05] MEDS: MEGESTROL ACETATE SUSP 400 MG/10 ML CUP PO SCH (08:59)
[2016-11-05] MEDS: ASPIRIN 325 MG TAB PO SCH (08:59)
[2016-11-05] MEDS: BACITRACIN TOP OINT 15 GM TUBE TOP SCH ×2 (08:59→21:00)
[2016-11-05] MEDS: ZINC OXIDE 20% OINT 30 GM TUBE TOPICAL SCH ×2 (08:59→21:00)
[2016-11-05] MEDS: LACTULOSE SYRUP 20 GM/30 ML CUP PO SCH (08:59)
[2016-11-05] MEDS: DOCUSATE SODIUM 100 MG/10 ML UDC PO SCH ×2 (08:59→22:05)
[2016-11-05] MEDS: ENOXAPARIN SODIUM 40 MG/0.4 ML SYRINGE SQ SCH (11:30)
[2016-11-05 12:09] VITALS: BP 112/74; PULSE 70; RESP 16; TEMP 96.3; O2SAT 100
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
[2016-11-05 16:00] VITALS: BP 99/74; PULSE 82; RESP 16; TEMP 97.4; O2SAT 98
[2016-11-05 20:50] VITALS: BP 118/80; PULSE 67; RESP 19; TEMP 97.7; O2SAT 96
[2016-11-05] MEDS: MAGNESIUM HYDROXIDE SUSP 30 ML CUP PO SCH (22:05)
[2016-11-06 05:30] VITALS: BP 120/76; PULSE 66; RESP 18; TEMP 98; O2SAT 97
[2016-11-06] MEDS: AMANTADINE HCL SOLN 100 MG/10 ML UDC PO SCH ×2 (06:39→11:23)
[2016-11-06 08:00] VITALS: BP 108/77; PULSE 78; RESP 18; TEMP 96.3; O2SAT 98
[2016-11-06] MEDS: MEGESTROL ACETATE SUSP 400 MG/10 ML CUP PO SCH (08:59)
[2016-11-06] MEDS: ASPIRIN 325 MG TAB PO SCH (08:59)
[2016-11-06] MEDS: DOCUSATE SODIUM 100 MG/10 ML UDC PO SCH ×2 (09:00→20:55)
[2016-11-06] MEDS: FAMOTIDINE 20 MG TAB PO SCH ×2 (09:00→20:55)
[2016-11-06] MEDS: LACTULOSE SYRUP 20 GM/30 ML CUP PO SCH (09:00)
[2016-11-06] MEDS: ZINC OXIDE 20% OINT 30 GM TUBE TOPICAL SCH ×2 (09:01→20:55)
[2016-11-06] MEDS: BACITRACIN TOP OINT 15 GM TUBE TOP SCH ×2 (09:02→20:55)
[2016-11-06] MEDS: ENOXAPARIN SODIUM 40 MG/0.4 ML SYRINGE SQ SCH (11:22)
[2016-11-06 12:00] VITALS: BP 108/68; PULSE 71; RESP 18; TEMP 96.6; O2SAT 98
[2016-11-06 16:00] VITALS: BP 104/77; PULSE 79; RESP 18; TEMP 97.4; O2SAT 99
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
[2016-11-06 20:47] VITALS: BP 112/81; PULSE 73; RESP 18; TEMP 97.8; O2SAT 100
[2016-11-06] MEDS: DOCUSATE SODIUM 50 MG/SENNA 8.6 MG TAB PO SCH (20:55)
[2016-11-06] MEDS: MAGNESIUM HYDROXIDE SUSP 30 ML CUP PO SCH (20:55)
[2016-11-07] VITALS (7 sets, daily range): BP systolic 111–125; BP diastolic 62–87; PULSE 68–83; RESP 17–20; TEMP 96–97.8; O2SAT 97–100
[2016-11-07] MEDS: AMANTADINE HCL SOLN 100 MG/10 ML UDC PO SCH ×2 (07:29→12:08)
[2016-11-07] MEDS: DOCUSATE SODIUM 100 MG/10 ML UDC PO SCH ×2 (08:26→22:12)
[2016-11-07] MEDS: MEGESTROL ACETATE SUSP 400 MG/10 ML CUP PO SCH (08:26)
[2016-11-07] MEDS: FAMOTIDINE 20 MG TAB PO SCH ×2 (08:27→22:11)
[2016-11-07] MEDS: LACTULOSE SYRUP 20 GM/30 ML CUP PO SCH (08:27)
[2016-11-07] MEDS: DOCUSATE SODIUM 50 MG/SENNA 8.6 MG TAB PO SCH ×2 (08:27→21:00)
[2016-11-07] MEDS: ASPIRIN 325 MG TAB PO SCH (08:27)
[2016-11-07] MEDS: BACITRACIN TOP OINT 15 GM TUBE TOP SCH ×2 (08:28→21:00)
[2016-11-07] MEDS: ZINC OXIDE 20% OINT 30 GM TUBE TOPICAL SCH ×2 (08:29→21:00)
[2016-11-07] MEDS: ENOXAPARIN SODIUM 40 MG/0.4 ML SYRINGE SQ SCH (12:08)
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
[2016-11-07] MEDS ORDERED: BISACODYL 10 MG SUPP RECTAL ONE (16:30)
[2016-11-07] MEDS: MAGNESIUM HYDROXIDE SUSP 30 ML CUP PO SCH (21:00)
[2016-11-08 04:14] VITALS: BP 135/73; PULSE 71; RESP 20; TEMP 97.7; O2SAT 97
[2016-11-08] MEDS: AMANTADINE HCL SOLN 100 MG/10 ML UDC PO SCH ×2 (06:18→11:32)
[2016-11-08 08:06] VITALS: BP 95/69; PULSE 76; RESP 18; TEMP 97.2; O2SAT 96
[2016-11-08] MEDS: LACTULOSE SYRUP 20 GM/30 ML CUP PO SCH (09:00)
[2016-11-08] MEDS: MEGESTROL ACETATE SUSP 400 MG/10 ML CUP PO SCH (09:23)
[2016-11-08] MEDS: FAMOTIDINE 20 MG TAB PO SCH ×2 (09:24→22:40)
[2016-11-08] MEDS: DOCUSATE SODIUM 100 MG/10 ML UDC PO SCH ×2 (09:24→21:00)
[2016-11-08] MEDS: DOCUSATE SODIUM 50 MG/SENNA 8.6 MG TAB PO SCH ×2 (09:24→22:40)
[2016-11-08] MEDS: ASPIRIN 325 MG TAB PO SCH (09:24)
[2016-11-08] MEDS: BACITRACIN TOP OINT 15 GM TUBE TOP SCH ×2 (09:32→22:47)
[2016-11-08] MEDS: ZINC OXIDE 20% OINT 30 GM TUBE TOPICAL SCH ×2 (09:33→22:47)
[2016-11-08] MEDS: ENOXAPARIN SODIUM 40 MG/0.4 ML SYRINGE SQ SCH (11:31)
[2016-11-08 12:00] VITALS: BP 103/74; PULSE 79; RESP 17; TEMP 98.2; O2SAT 97
--- NOTE | 2016-11-08 13:40 | HHI.PR ---
Neuropsych Emotional Emotional: Intact: Emotional, Anxious/Fearful, Depressed/Sad Behavior Behavior: Intact: Behavior, Coping/Acceptance, Cooperative w/ Treatment, Motivation, Impulsive/Agitated Cognitive Cognitive: Intact: Confused/Orientation, Mild: Insight/Awareness, Judgement/ Problem-Solving, Memory, Moderate: Cognitive, Attention/Concentration Psychosocial Psychosocial: Intact: Psychosocial, Family/Other Adjustment, Realistic Expectation, Self-Esteem/Confidence Progress Notes/Response to Tx Contents of Sessions: Adjustment Time with Patient: 15 minutes Premorbid psychological status Premorbid Cognitive, Emotional and Behavioral Status: Unable to Assess. The patient has no family present to discuss his baseline status. Behavioral Reactions of Patient and Family/Support System: Unable to Assess. No family present. Emotional/Behavioral Status of Patient and Family/Support System: Unable to Assess. Pertinent issues, if appropriate to this patients clinical care, are described in detail above. Maximizing acute care outcome It is recommended that the patient be monitored for emergent behavioral impulsivity as the medical condition evolves. This patients neuropathological challenges may limit their rehabilitation potential going forward, and these challenges will require specialized therapeutic skills to maximize outcome. Anticipated Problems Ongoing areas of concern will include behavioral impulsivity, lack of insight and judgment, which is expected to improve with time and treatment. Treatment Plan This clinician will continue to follow with you throughout the course of this patients rehabilitation treatment, and I will be available to meet with the patients family/support system to facilitate their understanding and the ongoing care of their family member. The goals of neuropsychological intervention shall be both educational and supportive to the family/support system as is deemed clinically appropriate. [facility] Level: VII:Automatic-appropriate Impression This patient has suffered a very severe traumatic brain injury with expected severe residual neurocognitive impairments. Diagnosis: (1) Major neurocognitive disorder as late effect of traumatic brain injury with behavioral disturbance Status: Acute Progress Note Narrative Ongoing follow-up of patient seen during daily trauma rounds. This is day 82 post injury. The patient is doing excellent, and is in the process of transferring to [place] to live with his sister. The patient is significantly improved in terms of neurobehaviorally and neurocognitively. He is alert, oriented, conversant with improved carryover, no agitation/ restlessness and a participant in his own care. He does continue to have residual neurocognitive deficit of some level, to be determined later by follow- up neuropsychological evaluation once he is at his new home. He is a [employer]. It is recommended that the Amantadine 150 BID be continued, unless medically contraindicated, with d/c determined by his follow-up physician. I will continue to follow until he is D/C from [place]. Hector Garrett PhD Nov 08, 2016 13:40
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
[2016-11-08 16:00] VITALS: BP 104/77; PULSE 80; RESP 17; TEMP 98.1; O2SAT 97
[2016-11-08 20:46] VITALS: BP 112/73; PULSE 72; RESP 18; TEMP 97.7; O2SAT 100
[2016-11-08] MEDS: MAGNESIUM HYDROXIDE SUSP 30 ML CUP PO SCH (21:00)
[2016-11-09] VITALS: BP 115/81; PULSE 88; RESP 18; TEMP 97.8; O2SAT 98
[2016-11-09 04:00] VITALS: BP 131/84; PULSE 81; RESP 18; TEMP 98; O2SAT 97
[2016-11-09] MEDS: AMANTADINE HCL SOLN 100 MG/10 ML UDC PO SCH ×2 (06:01→13:10)
[2016-11-09] MEDS: ASPIRIN 325 MG TAB PO SCH (07:51)
[2016-11-09] MEDS: FAMOTIDINE 20 MG TAB PO SCH (07:51)
[2016-11-09] MEDS: MEGESTROL ACETATE SUSP 400 MG/10 ML CUP PO SCH (07:51)
[2016-11-09] MEDS: DOCUSATE SODIUM 50 MG/SENNA 8.6 MG TAB PO SCH (07:51)
[2016-11-09] MEDS: DOCUSATE SODIUM 100 MG/10 ML UDC PO SCH (07:51)
[2016-11-09] MEDS: BACITRACIN TOP OINT 15 GM TUBE TOP SCH (07:52)
[2016-11-09] MEDS: ZINC OXIDE 20% OINT 30 GM TUBE TOPICAL SCH (07:52)
[2016-11-09 08:00] VITALS: BP 112/77; PULSE 84; RESP 17; TEMP 98.3; O2SAT 98
[2016-11-09] MEDS: LACTULOSE SYRUP 20 GM/30 ML CUP PO SCH (09:00)
[2016-11-09] MEDS: ENOXAPARIN SODIUM 40 MG/0.4 ML SYRINGE SQ SCH (11:30)
[2016-11-09 12:00] VITALS: BP 109/79; PULSE 77; RESP 17; TEMP 97.5; O2SAT 98
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
[2016-11-09 16:00] VITALS: BP 120/82; PULSE 73; RESP 17; TEMP 97.9; O2SAT 98
[2016-11-09] MEDS ORDERED: ASPI325T PO (17:21)
[2016-11-09] MEDS ORDERED: AMAN100T PO (17:21)
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
== END 2016-11-09 19:41 | disposition home or self-care (01) | DRG 3 ==
LOC: NEPI 05:52 → EDBD 06:08 → NEDA 06:08 → N03B 06:33 → N05A 09-12 04:54 → N05B 10-26 20:20
PROVIDERS: ADMIT Surgery; ATTEND Surgery
PROC: 00H032Z Insertion of Monitoring Device into Brain, Percutaneous Approach (ICD-10-PCS; principal; 2016-08-18)
PROC: 5A1955Z Respiratory Ventilation, Greater than 96 Consecutive Hours (ICD-10-PCS; 2016-08-18)
PROC: 0NSM04Z Reposition Right Zygomatic Bone with Internal Fixation Device, Open Approach (ICD-10-PCS; 2016-08-18)
PROC: 4A103BD Monitoring of Intracranial Pressure, Percutaneous Approach (ICD-10-PCS; 2016-08-18)
PROC: 0NSBXZZ Reposition Nasal Bone, External Approach (ICD-10-PCS; 2016-08-18)
PROC: 02HV33Z Insertion of Infusion Device into Superior Vena Cava, Percutaneous Approach (ICD-10-PCS; 2016-08-18)
PROC: 0BH17EZ Insertion of Endotracheal Airway into Trachea, Via Natural or Artificial Opening (ICD-10-PCS; 2016-08-18)
PROC: 0QSH06Z Reposition Left Tibia with Intramedullary Internal Fixation Device, Open Approach (ICD-10-PCS; 2016-08-19)
PROC: 00C30ZZ Extirpation of Matter from Intracranial Epidural Space, Open Approach (ICD-10-PCS; 2016-08-23)
PROC: 00U20JZ Supplement Dura Mater with Synthetic Substitute, Open Approach (ICD-10-PCS; 2016-08-23)
PROC: [UNRECOGNIZED PROCEDURE] (2016-08-23)
PROC: 0B113F4 Bypass Trachea to Cutaneous with Tracheostomy Device, Percutaneous Approach (ICD-10-PCS; 2016-08-30)
PROC: 0BJ08ZZ Inspection of Tracheobronchial Tree, Via Natural or Artificial Opening Endoscopic (ICD-10-PCS; 2016-08-30)
PROC: 0DH63UZ Insertion of Feeding Device into Stomach, Percutaneous Approach (ICD-10-PCS; 2016-08-31)
PROC: 0DH63UZ Insertion of Feeding Device into Stomach, Percutaneous Approach (ICD-10-PCS; 2016-09-26)
PROC: 0DP6XUZ Removal of Feeding Device from Stomach, External Approach (ICD-10-PCS; 2016-11-08)
DX: S06.4X9A Epidural hemorrhage with loss of consciousness of unspecified duration, initial encounter (principal); G93.40 Encephalopathy, unspecified; S36.112A Contusion of liver, initial encounter; S32.810A Multiple fractures of pelvis with stable disruption of pelvic ring, initial encounter for closed fracture; K22.2 Esophageal obstruction; S32.049A Unspecified fracture of fourth lumbar vertebra, initial encounter for closed fracture; F01.51 Vascular dementia, unspecified severity, with behavioral disturbance; J96.00 Acute respiratory failure, unspecified whether with hypoxia or hypercapnia; S82.202A Unspecified fracture of shaft of left tibia, initial encounter for closed fracture; S37.011A Minor contusion of right kidney, initial encounter; S37.812A Contusion of adrenal gland, initial encounter; S04.019 Injury of optic nerve, unspecified eye; S02.2XXA Fracture of nasal bones, initial encounter for closed fracture; S02.40EA Zygomatic fracture, right side, initial encounter for closed fracture; S02.31XA Fracture of orbital floor, right side, initial encounter for closed fracture; S02.40FA Zygomatic fracture, left side, initial encounter for closed fracture; S06.5X9A Traumatic subdural hemorrhage with loss of consciousness of unspecified duration, initial encounter; S82.402A Unspecified fracture of shaft of left fibula, initial encounter for closed fracture; S02.19XA Other fracture of base of skull, initial encounter for closed fracture; E87.6 Hypokalemia; S82.302A Unspecified fracture of lower end of left tibia, initial encounter for closed fracture; S82.832A Other fracture of upper and lower end of left fibula, initial encounter for closed fracture; S02.40CA Maxillary fracture, right side, initial encounter for closed fracture; R40.2431 Glasgow coma scale score 3-8, in the field [EMT or ambulance]; S42.102A Fracture of unspecified part of scapula, left shoulder, initial encounter for closed fracture; S42.101A Fracture of unspecified part of scapula, right shoulder, initial encounter for closed fracture; S06.2X9A Diffuse traumatic brain injury with loss of consciousness of unspecified duration, initial encounter; H52.31 Anisometropia; F17.210 Nicotine dependence, cigarettes, uncomplicated; K59.00 Constipation, unspecified; R47.02 Dysphasia; R13.10 Dysphagia, unspecified; Z51.5 Encounter for palliative care; Z78.1 Physical restraint status; V23.4XXA Motorcycle driver injured in collision with car, pick-up truck or van in traffic accident, initial encounter; Y92.410 Unspecified street and highway as the place of occurrence of the external cause
CPT/HCPCS: 31500; 36430; 36556; 36600; 36620; 61210; 70450; 70486; 71010; 71260; 72125; 72128; 72131; 72170; 72190; 73030; 73560; 73590; 73600; 73610; 74177; 76000; 76705; 76937; 80048; 80053; 81001; 81003; 82140; 82435; 82533; 82565; 82805; 82947; 83735; 83835; 83930; 83935; 84100; 84132; 84155; 84295; 84300; 84520; 85007; 85025; 85027; 85610; 85730; 86850; 86900; 86901; 86920; 87040; 87070; 87077; 87186; 87205; 87641; 90471; 90732; 93005; 94002; 94003; 94640; 94664; 94762; 94770; 96365; 96374; 99291; A7520; A7521; C1713; C1769; C9113; G0390; J0131; J0171; J0330; J0461; J0690; J1170; J1265; J1580; J1650; J1940; J1953; J2150; J2250; J2270; J2370; J2543; J2997; J3010; J3370; J3480; J7030; J7050; L0150; L0172; L2114; P9016; P9045; Q9967